=== PATIENT | male | born 1950 | race Caucasian/White ===

== ENCOUNTER 2020-09-02 09:50 | Outpatient (REF) | payer MEDICARE, SELFPAY ==
--- NOTE | 2020-09-02 | US_ITS ---
EXAMINATION: US RETROPERITONEAL LIMITED (RENAL ONLY) CLINICAL INFORMATION: Renal stones. COMPARISON: KUB 08/17/2020 and 12/16/2019. Renal ultrasound 06/09/2020 and 12/31/2019. CT abdomen and pelvis 06/30/2019. TECHNIQUE: Real-time imaging of the kidneys. FINDINGS: RIGHT KIDNEY: 10.4 x 5.5 x 4.5 cm (SAG x AP x TRV). The kidney is normal in size, contour, and echogenicity. Renal cortical thickness is normal. No renal calculi or hydronephrosis. At the interpolar aspect, 5.2 cm, 2.1 cm and 1.3 cm in maximal diameter simple cysts are seen. LEFT KIDNEY: 11.1 x 6.3 x 5.6 cm (SAG x AP x TRV). The kidney is normal in size, contour, and echogenicity. Renal cortical thickness is normal. No calculi or focal parenchymal lesions. No hydronephrosis. IMPRESSION: There are multiple simple right renal cysts noted. No renal calculus or hydronephrosis is seen bilaterally.
== END 2020-09-02 09:51 | disposition home or self-care (01) ==
LOC: HO.HMGCX 09:50
PROVIDERS: PCP Internal Medicine; Visit Provider Urology
DX: N20.0 Calculus of kidney (principal)
CPT/HCPCS: 76775

== ENCOUNTER 2020-09-15 17:11 | Outpatient (REF) | payer MEDICARE, SELFPAY | END 2020-09-15 17:12 | disposition home or self-care (01) | LOC: HO.LAB 17:11 | PROVIDERS: PCP Internal Medicine; Visit Provider Internal Medicine | DX: Z20.828 Contact with and (suspected) exposure to other viral communicable diseases (principal) | CPT/HCPCS: 87635 ==

== ENCOUNTER → 2020-09-29 11:12 | Outpatient (BNVA) | payer MEDICARE, SELFPAY | PROVIDERS: PCP Internal Medicine; Referring Provider Internal Medicine; Visit Provider Surgery | DX: Z71.83 Encounter for nonprocreative genetic counseling (principal); Z80.0 Family history of malignant neoplasm of digestive organs | CPT/HCPCS: 99212 ==

== ENCOUNTER 2020-11-28 10:00 | Outpatient (REF) | payer MEDICARE, SELFPAY ==
[2020-11-28 11:45] LABS: PSA,Total (Free>4and<10) 2.86 ng/mL (0.00-4.00)
== END 2020-11-28 10:01 | disposition home or self-care (01) ==
LOC: HO.LAB 10:00
PROVIDERS: PCP Internal Medicine; Visit Provider Urology
DX: N40.1 Benign prostatic hyperplasia with lower urinary tract symptoms (principal); Z12.5 Encounter for screening for malignant neoplasm of prostate
CPT/HCPCS: 84153

== ENCOUNTER → 2020-12-08 13:38 | Outpatient (BNVA) | payer MEDICARE, SELFPAY | PROVIDERS: PCP Internal Medicine; Referring Provider Internal Medicine; Visit Provider Urology | DX: Z13.89 Encounter for screening for other disorder (principal) | CPT/HCPCS: Q3014 ==

== ENCOUNTER 2021-01-02 09:52 | Outpatient (REF) | payer MEDICARE, SELFPAY | END 2021-01-02 09:53 | disposition home or self-care (01) | LOC: HO.LAB 09:52 | PROVIDERS: PCP Internal Medicine; Visit Provider Internal Medicine | DX: Z20.822 Contact with and (suspected) exposure to COVID-19 (principal) | CPT/HCPCS: 36415; C9803; U0003; U0005 ==

== ENCOUNTER 2021-08-22 08:04 | Outpatient (REF) | payer MEDICARE, SELFPAY ==
[2021-08-22 09:12] LABS: MANUAL DIFF FLAG NO
[2021-08-22 09:17] LABS: Basophils Absolute Auto 0.1 X10*3/uL (0.0-0.2); Basophils Percent Auto 1.1 % (0-2); Eosinophils Absolute Auto 0.2 X10*3/uL (0.0-0.4); Eosinophils Percent Auto 4.8 % (0-4); Hematocrit 46.9 % (42-52); Hemoglobin 15.5 g/dl (14.0-18.0); Imm Gran Abs Auto 0.01 X10*3/uL (0.00-0.03); Imm Gran Pct Auto 0.2 % (0.0-0.4); Lymphocytes Absolute Auto 1.3 X10*3/uL (1.2-4.9); Lymphocytes Percent Auto 28.9 % (20-40); Mean Corpuscular Hemoglobin 31.6 pg (27.0-33.0); Mean Corpuscular Volume 95.7 fL (80-98); Mean Platelet Volume 9.9 fL (9.4-12.4); Monocytes Absolute Auto 0.5 X10*3/uL (0.1-1.2); Monocytes Percent Auto 11.5 % (2-11); Neutrophils Absolute Auto 2.3 X10*3/uL (2.0-8.3); Neutrophils Percent Auto 53.5 % (45-73); Platelet Count 241 X10*3/uL (160-400); White Blood Count 4.4 X10*3/uL (4.8-10.8)
[2021-08-22 09:37] LABS: Alanine Aminotransferase 23 U/L (0-40); Albumin Level 4.2 g/dL (3.5-5.0); Alkaline Phosphatase 77 U/L (39-117); Anion Gap 12 (12-20); Aspartate Amino Transferase 18 U/L (5-37); Bilirubin Total 0.6 mg/dL (0.0-1.0); Blood Urea Nitrogen 18 mg/dL (9-16); Calcium 9.3 mg/dL (8.4-10.2); Carbon Dioxide 27 mmol/L (22-29); Chloride 106 mmol/L (96-108); Cholesterol 217 mg/dL; Estimated Glomerular Filt Rate > 60; Glucose Fasting 94 mg/dL (60-99); HDL Cholesterol 61 mg/dL; LDL Cholesterol Calculated 144 mg/dl; Potassium 4.8 mmol/L (3.3-5.1); Sodium 140 mmol/L (135-145); Total Protein 6.8 g/dL (6.5-8.0); Triglycerides 60 mg/dL
[2021-08-22 09:58] LABS: Prostate Specific Antigen Scr 2.35 ng/mL (<0.05-4.0); Thyroid Stimulating Hormone 2.88 uIU/mL (0.32-4.0)
== END 2021-08-22 08:05 | disposition home or self-care (01) ==
LOC: HO.LAB 08:04
PROVIDERS: PCP Internal Medicine; Visit Provider Internal Medicine
DX: Z00.00 Encounter for general adult medical examination without abnormal findings (principal); Z12.5 Encounter for screening for malignant neoplasm of prostate; R35.1 Nocturia; E11.9 Type 2 diabetes mellitus without complications; E03.9 Hypothyroidism, unspecified
CPT/HCPCS: 36415; 80053; 80061; 84153; 84443; 85025

== ENCOUNTER 2021-11-21 09:54 | Outpatient (REF) | payer MEDICARE, SELFPAY ==
--- NOTE | ~2021-11-21 | US_ITS ---
EXAMINATION: US RETROPERITONEAL LIMITED (RENAL ONLY) CLINICAL INFORMATION: Calculus of kidney. COMPARISON: Renal ultrasound 09/02/2020 and 06/09/2020. X-ray abdomen KUB 08/17/2020 and 12/16/2019. CT abdomen and pelvis 06/30/2019. TECHNIQUE: Real-time imaging of the kidneys. FINDINGS: RIGHT KIDNEY: 10.9 x 6.5 x 6.1 cm (SAG x AP x TRV). The kidney is normal in size, contour, and echogenicity. Renal cortical thickness is decreased. There are 3 right renal cysts. There is a 2.2 x 2.1 x 1.9 cm minimally complex cyst in the lower pole with single thin septation. There are 2 simple cysts in the midpole measuring 1.1 x 1.2 x 1.2 cm and 4.3 x 4 x 4.3 cm. These do not appear appreciably changed. No renal calculi or hydronephrosis. LEFT KIDNEY: 11.3 x 6.4 x 5.1 cm (SAG x AP x TRV). The kidney is normal in size, contour, and echogenicity. Renal cortical thickness is decreased. There are several small echogenic foci seen. None demonstrate acoustic shadowing or twinkle artifact to suggest a stone. No focal parenchymal lesions. No hydronephrosis. US/US renal BI IMPRESSION: Stable right renal cysts. No stone seen.
[2021-11-21 12:00] LABS: Alanine Aminotransferase 22 U/L (0-40); Albumin Level 4.2 g/dL (3.5-5.0); Alkaline Phosphatase 79 U/L (39-117); Anion Gap 12 (12-20); Aspartate Amino Transferase 20 U/L (5-37); Bilirubin Total 0.8 mg/dL (0.0-1.0); Blood Urea Nitrogen 19 mg/dL (9-16); Calcium 9.5 mg/dL (8.4-10.2); Carbon Dioxide 26 mmol/L (22-29); Chloride 108 mmol/L (96-108); Cholesterol 218 mg/dL; Estimated Glomerular Filt Rate > 60; Glucose Fasting 88 mg/dL (60-99); HDL Cholesterol 60 mg/dL; LDL Cholesterol Calculated 145 mg/dl; Potassium 4.6 mmol/L (3.3-5.1); Sodium 141 mmol/L (135-145); Triglycerides 65 mg/dL
[2021-11-21 12:22] LABS: Prostate Specific Antigen 2.78 ng/mL (<0.05-4.0)
== END 2021-11-21 09:55 | disposition home or self-care (01) ==
LOC: HO.HMGCX 09:54
PROVIDERS: PCP Internal Medicine; Visit Provider Urology
DX: Z12.5 Encounter for screening for malignant neoplasm of prostate (principal); Z13.1 Encounter for screening for diabetes mellitus; Z13.220 Encounter for screening for lipoid disorders; N20.0 Calculus of kidney; N40.0 Benign prostatic hyperplasia without lower urinary tract symptoms
CPT/HCPCS: 36415; 76775; 80053; 80061; 84153

== ENCOUNTER → 2021-12-27 08:24 | Outpatient (BNVA) | payer MEDICARE, SELFPAY | PROVIDERS: PCP Internal Medicine; Visit Provider Urology | DX: N20.0 Calculus of kidney (principal); N40.0 Benign prostatic hyperplasia without lower urinary tract symptoms | CPT/HCPCS: Q3014 ==

== ENCOUNTER 2022-05-31 05:22 | Emergency (ER) | payer MEDICARE, SELFPAY ==
--- NOTE | ~2022-05-31 | XR_ITS ---
EXAMINATION: XR CHEST CLINICAL INFORMATION: Chest pain COMPARISON: 05/17/2009 TECHNIQUE: Frontal view of the chest was obtained. FINDINGS: The lungs are well expanded. There is no focal consolidation, edema, or effusion. No pneumothorax. The cardiomediastinal silhouette is within normal limits. No acute osseous abnormality. XR/XR chest 1V IMPRESSION: Clear lungs.
--- NOTE | 2022-05-31 05:25 | ECG_ITS ---
Test Reason : CHEST PAIN Blood Pressure : / mmHG Vent. Rate : 056 BPM Atrial Rate : 056 BPM P-R Int : 184 ms QRS Dur : 102 ms QT Int : 446 ms P-R-T Axes : 029 -01 081 degrees QTc Int : 430 ms Sinus bradycardia Inferior infarct , possibly acute ACUTE SC / STEMI Consider right ventricular involvement in acute inferior infarct Abnormal ECG When compared with ECG of 29-NOV-2014 15:07, Inferior infarct is now Present ST elevation now present in Inferior leads ST now depressed in Lateral leads Referred By: Generic ED Physician Electronically Signed By:NAYE DE LUNA
--- NOTE | 2022-05-31 05:33 | ED_ITS ---
HPI - Chest Pain General Chief Complaint: Chest Pain Stated Complaint: Chest pain Time Seen by Provider: 05/31/22 05:33 Source: patient Mode of arrival: ambulatory Limitations: no limitations History of Present Illness HPI narrative: patient with history of arthritis and good no known coronary artery disease came here with left arm pain which started yesterday evening and since middle of the night noticed left-sided chest pain feels like pressure no nausea no vomiting no diaphoresis no syncope no palpitation patient never had similar pain in the past. On arrival patient blood pressure was 162/90 pulse rate 62 beats per minute rate 16 saturating 97% at room air Related Data Previous Rx's Medication Instructions Recorded omeprazole 20 mg capsule,delayed 20 mg PO DAILY #90 caps 04/03/22 release naproxen 500 mg tablet 500 mg PO BID #90 tabs 05/15/22 Allergies Allergy/AdvReac Type Severity Reaction Status Date / Time shellfish derived AdvReac Intermediate VOMITING Verified 05/31/22 05:26 Review of Systems Review of Systems: Yes all other systems are reviewed and are negative PMFSH Past Medical History Medical History Benign prostatic hyperplasia with lower urinary tract symptoms Family history of pancreatic cancer Genetic testing History of colon cancer Kidney stone Other obstructive and reflux uropathy Rectal bleeding Renal cyst Screening for diabetes mellitus Screening for hyperlipidemia Surgical History History of colon resection (~12/14/14) History of colonoscopy (~10/18/14) Family History Family History Father History of heart disease Mother History of colon cancer Brother History of liver cancer History of pancreatic cancer Sister History of lung cancer Daughter History of breast cancer Social History Social History Housing: House Alcohol intake: current Alcohol intake frequency: a few times a month Patient Tobacco Use Status: Never used Tobacco Use of substances other than those prescribed or required for medical reasons: No Advance Directives: No service: No Current occupational status: retired Physical Exam Vital Signs: Vital Signs: Last Vital Signs Pulse 53 05/31/22 06:07 Resp 14 05/31/22 06:06 BP 125/75 05/31/22 06:07 Pulse Ox 95 05/31/22 06:06 O2 Del Method 05/31/22 06:06 BMI result Body Mass Index 27.6 Appearance: Alert. Oriented X3. No acute distress. Eyes: PERRLA, No Nystagmus ENT: Pharynx normal. Oral Mucosa moist Neck: Normal inspection. Neck supple. CVS: Normal heart rate and rhythm. Pulses normal. no murmur/ rub or gallop Respiratory: No respiratory distress. Equal air entry bilateral, no wheezing/rales/rhonchi Abdomen: Soft and nontender. Bowel sounds are present, no mass palpable, no CVA tenderness Skin: Skin warm and dry. Normal skin color. Normal skin turgor. Extremities: No lower extremity edema. No calf tenderness Neuro: Oriented X 3. No motor deficit. No sensory deficit.No cerebellar signs , cranial nerves II-XII intact Course Reevaluation(s) Reevaluation #1: patient with inferior wall AK started on heparin bolus, Brilinta, aspirin and nitroglycerin was givencase discussed with sound installation worker Dr. Paris at [facility] accepted the patient for transfer to laboratory asst Time: 05:38 Reevaluation #2: awaiting for the ambulance patient received the above medications patient's chest pain gone at this time after 1 nitro s/l Time: 05:50 MDM - Chest Pain MDM Narrative Medical decision making narrative: 06:10 patient with inferior wall STEMI transfer to [facility] at this time chest pain-free Lab Data Attestation: I reviewed the patient's lab results. Result diagrams: 05/31/22 05:35 05/31/22 05:35 Labs: Lab Results 05/31/22 05/31/22 05/31/22 Range/Units 05:35 05:35 05:35 WBC 6.5 (4.8-10.8) X10*3/uL RBC 5.09 (4.60-5.80) X10*6/uL Hgb 15.9 (14.0-18.0) g/dl Hct 47.4 (42.0-52.0) % MCV 93.1 (80.0-98.0) fL MCH 31.2 (27.0-33.0) pg MCHC 33.5 (31.0-36.0) g/dl RDW 12.8 (11.0-16.0) % Plt Count 237 (160-400) X10*3/uL MPV 9.3 L (9.4-12.4) fL Immature Gran % (Auto) 0.2 (0.0-0.4) % Neut % (Auto) 38.7 L (45-73) % Lymph % (Auto) 40.0 (20-40) % [place] % (Auto) 13.3 H (2-11) % Eos % (Auto) 7.0 H (0-4) % Baso % (Auto) 0.8 (0-2) % Lymph # (Auto) 2.6 (1.2-4.9) X10*3/uL [place] # (Auto) 0.9 (0.1-1.2) X10*3/uL Eos # (Auto) 0.5 H (0.0-0.4) X10*3/uL Baso # (Auto) 0.1 (0.0-0.2) X10*3/uL Abs Immat Gran (auto) 0.01 (0.00-0.03) X10*3/uL Absolute Neuts (auto) 2.5 (2.0-8.3) x10*3/uL Absolute Nucleated RBC 0.000 (0.0-0.012) X10*3/uL Nucleated RBC % (auto) 0.0 (0.0-0.2) /100WBC PT 10.8 (10.0-13.1) SEC INR 0.9 (0.9-1.1) APTT 33.9 (24.1-38.0) SEC Sodium 141 (135-145) mmol/L Potassium 3.9 (3.3-5.1) mmol/L Chloride 107 (96-108) mmol/L Carbon Dioxide 23 (22-29) mmol/L Anion Gap 15 (12-20) BUN 21 H (9-16) mg/dL Creatinine 1.04 (0.5-1.4) mg/dL Estim Creat Clear Calc 68.3 Estimated GFR > 60 Random Glucose 106 (60-115) mg/dL Calcium 9.2 (8.4-10.2) mg/dL Magnesium 1.9 (1.6-2.6) mg/dL COVID-19 (NBA) (Negative) COVID-19 Clin Com 05/31/22 Range/Units 05:35 WBC (4.8-10.8) X10*3/uL RBC (4.60-5.80) X10*6/uL Hgb (14.0-18.0) g/dl Hct (42.0-52.0) % MCV (80.0-98.0) fL MCH (27.0-33.0) pg MCHC (31.0-36.0) g/dl RDW (11.0-16.0) % Plt Count (160-400) X10*3/uL MPV (9.4-12.4) fL Immature Gran % (Auto) (0.0-0.4) % Neut % (Auto) (45-73) % Lymph % (Auto) (20-40) % [place] % (Auto) (2-11) % Eos % (Auto) (0-4) % Baso % (Auto) (0-2) % Lymph # (Auto) (1.2-4.9) X10*3/uL [place] # (Auto) (0.1-1.2) X10*3/uL Eos # (Auto) (0.0-0.4) X10*3/uL Baso # (Auto) (0.0-0.2) X10*3/uL Abs Immat Gran (auto) (0.00-0.03) X10*3/uL Absolute Neuts (auto) (2.0-8.3) x10*3/uL Absolute Nucleated RBC (0.0-0.012) X10*3/uL Nucleated RBC % (auto) (0.0-0.2) /100WBC PT (10.0-13.1) SEC INR (0.9-1.1) APTT (24.1-38.0) SEC Sodium (135-145) mmol/L Potassium (3.3-5.1) mmol/L Chloride (96-108) mmol/L Carbon Dioxide (22-29) mmol/L Anion Gap (12-20) BUN (9-16) mg/dL Creatinine (0.5-1.4) mg/dL Estim Creat Clear Calc Estimated GFR Random Glucose (60-115) mg/dL Calcium (8.4-10.2) mg/dL Magnesium (1.6-2.6) mg/dL COVID-19 (NBA) Negative (Negative) COVID-19 Clin Com See Note ECG Data ECG #1: Attestation: I personally reviewed and interpreted this ECG as follows: Interpretation: sinus bradycardia with heart rate [address] elevation in 2, 3 AVF impression acute STEMI inferior wall Discharge Plan Discharge Clinical Impression: ST elevation myocardial infarction (STEMI) Patient Disposition: Xfer [facility] Hospital Transfer Details: [facility] cardiac catheterization Dr. PARIS Prescriptions: No Action omeprazole 20 mg capsule,delayed release(DR/EC) 20 mg PO DAILY Qty: 90 0RF naproxen 500 mg tablet 500 mg PO BID Qty: 90 8RF
[2022-05-31 05:36] VITALS: BP 162/90; PULSE 62; RESP 16; O2SAT 97; BMI 27.6
[2022-05-31 05:42] LABS: MANUAL DIFF FLAG NO
[2022-05-31] MEDS: Heparin Sodium,Porcine 5,000 UNIT/ML VIAL 5000 UNIT IVPUSH (05:43)
[2022-05-31] MEDS: Aspirin 81 MG TAB.CHEW 324 MG PO (05:43)
[2022-05-31] MEDS: Ticagrelor 90 MG TABLET 180 MG PO (05:43)
[2022-05-31] MEDS: Nitroglycerin 0.4 MG TAB.SUBL SUBLINGUAL ×2 (05:44→06:07)
[2022-05-31 05:46] LABS: Basophils Absolute Auto 0.1 X10*3/uL (0.0-0.2); Basophils Percent Auto 0.8 % (0-2); Eosinophils Absolute Auto 0.5 X10*3/uL (0.0-0.4); Hematocrit 47.4 % (42.0-52.0); Hemoglobin 15.9 g/dl (14.0-18.0); Imm Gran Abs Auto 0.01 X10*3/uL (0.00-0.03); Imm Gran Pct Auto 0.2 % (0.0-0.4); Lymphocytes Absolute Auto 2.6 X10*3/uL (1.2-4.9); Mean Corpuscular HGB Conc 33.5 g/dl (31.0-36.0); Mean Corpuscular Hemoglobin 31.2 pg (27.0-33.0); Mean Corpuscular Volume 93.1 fL (80.0-98.0); Mean Platelet Volume 9.3 fL (9.4-12.4); Monocytes Absolute Auto 0.9 X10*3/uL (0.1-1.2); Monocytes Percent Auto 13.3 % (2-11); Neutrophils Absolute Auto 2.5 x10*3/uL (2.0-8.3); Neutrophils Percent Auto 38.7 % (45-73); Platelet Count 237 X10*3/uL (160-400); Red Blood Count 5.09 X10*6/uL (4.60-5.80); Red Cell Distribution Width 12.8 % (11.0-16.0); White Blood Count 6.5 X10*3/uL (4.8-10.8)
[2022-05-31 05:50] LABS: INTERNATIONAL NORM RATIO 0.9 (0.9-1.1); Prothrombin Time 10.8 SEC (10.0-13.1)
[2022-05-31 05:51] VITALS: BP 145/87; PULSE 62; RESP 14; O2SAT 97
--- NOTE | 2022-05-31 05:51 | PC.NURSE ---
Pt reports being pain free after 1 SL Nitro.
[2022-05-31 05:53] LABS: Partial Thromboplastin Time 33.9 SEC (24.1-38.0)
[2022-05-31 06:00] LABS: COVID-19 Test Negative (Negative)
--- NOTE | 2022-05-31 06:01 | PC.NURSE ---
this RN attempt to call report to supervisor cytogenetic laboratory at [facility] with no response, this RN will attempt report again.
[2022-05-31 06:06] VITALS: BP 125/75; PULSE 56; RESP 14; O2SAT 95
[2022-05-31 06:07] VITALS: BP 125/75; PULSE 53
[2022-05-31 06:07] LABS: Anion Gap 15 (12-20); Blood Urea Nitrogen 21 mg/dL (9-16); Calcium 9.2 mg/dL (8.4-10.2); Carbon Dioxide 23 mmol/L (22-29); Chloride 107 mmol/L (96-108); Creatinine Clr Calc Pharmacy 68.3; Estimated Glomerular Filt Rate > 60; Glucose Random 106 mg/dL (60-115); Magnesium 1.9 mg/dL (1.6-2.6); Potassium 3.9 mmol/L (3.3-5.1); Sodium 141 mmol/L (135-145)
--- NOTE | 2022-05-31 06:07 | PC.NURSE ---
CALL OUT TO [facility] FOR INCURABLES STEMI STAT LINE @[phone]
--- NOTE | 2022-05-31 06:08 | PC.NURSE ---
CALL OUT TO [facility] @[phone] REGARDING STAT STEMI TRANSFER TO [facility]
[2022-05-31 06:13] VITALS: BP 133/73; PULSE 54; RESP 16; O2SAT 96
[2022-05-31 06:15] LABS: Troponin-I High Sensitivity 615.4 ng/L (<3.5-35.0)
--- NOTE | 2022-05-31 06:16 | ED.CHESTPAIN ---
HPI - Chest Pain General Chief Complaint: Chest Pain Stated Complaint: Chest pain Time Seen by Provider: 05/31/22 05:33 Source: patient Mode of arrival: ambulatory Limitations: no limitations Related Data Previous Rx's Medication Instructions Recorded omeprazole 20 mg capsule,delayed 20 mg PO DAILY #90 caps 04/03/22 release naproxen 500 mg tablet 500 mg PO BID #90 tabs 05/15/22 Allergies Allergy/AdvReac Type Severity Reaction Status Date / Time shellfish derived AdvReac Intermediate VOMITING Verified 05/31/22 05:26 [facility] Past Medical History Medical History Benign prostatic hyperplasia with lower urinary tract symptoms Family history of pancreatic cancer Genetic testing History of colon cancer Kidney stone Other obstructive and reflux uropathy Rectal bleeding Renal cyst Screening for diabetes mellitus Screening for hyperlipidemia Surgical History History of colon resection (~12/14/14) History of colonoscopy (~10/18/14) Family History Family History Father History of heart disease Mother History of colon cancer Brother History of liver cancer History of pancreatic cancer Sister History of lung cancer Daughter History of breast cancer Social History Social History Housing: House Alcohol intake: current Alcohol intake frequency: a few times a month Patient Tobacco Use Status: Never used Tobacco Use of substances other than those prescribed or required for medical reasons: No Advance Directives: No service: No Current occupational status: retired Physical Exam Vital Signs: Vital Signs: Last Vital Signs Pulse 54 05/31/22 06:13 Resp 16 05/31/22 06:13 BP 133/73 05/31/22 06:13 Pulse Ox 96 05/31/22 06:13 O2 Del Method 05/31/22 06:13 BMI result Body Mass Index 27.6 MDM - Chest Pain Lab Data Result diagrams: 05/31/22 05:35 05/31/22 05:35 Labs: Lab Results 05/31/22 05/31/22 05/31/22 Range/Units 05:35 05:35 05:35 WBC 6.5 (4.8-10.8) X10*3/uL RBC 5.09 (4.60-5.80) X10*6/uL Hgb 15.9 (14.0-18.0) g/dl Hct 47.4 (42.0-52.0) % MCV 93.1 (80.0-98.0) fL MCH 31.2 (27.0-33.0) pg MCHC 33.5 (31.0-36.0) g/dl RDW 12.8 (11.0-16.0) % Plt Count 237 (160-400) X10*3/uL MPV 9.3 L (9.4-12.4) fL Immature Gran % (Auto) 0.2 (0.0-0.4) % Neut % (Auto) 38.7 L (45-73) % Lymph % (Auto) 40.0 (20-40) % [place] % (Auto) 13.3 H (2-11) % Eos % (Auto) 7.0 H (0-4) % Baso % (Auto) 0.8 (0-2) % Lymph # (Auto) 2.6 (1.2-4.9) X10*3/uL [place] # (Auto) 0.9 (0.1-1.2) X10*3/uL Eos # (Auto) 0.5 H (0.0-0.4) X10*3/uL Baso # (Auto) 0.1 (0.0-0.2) X10*3/uL Abs Immat Gran (auto) 0.01 (0.00-0.03) X10*3/uL Absolute Neuts (auto) 2.5 (2.0-8.3) x10*3/uL Absolute Nucleated RBC 0.000 (0.0-0.012) X10*3/uL Nucleated RBC % (auto) 0.0 (0.0-0.2) /100WBC PT (10.0-13.1) SEC INR (0.9-1.1) APTT (24.1-38.0) SEC Sodium 141 (135-145) mmol/L Potassium 3.9 (3.3-5.1) mmol/L Chloride 107 (96-108) mmol/L Carbon Dioxide 23 (22-29) mmol/L Anion Gap 15 (12-20) BUN 21 H (9-16) mg/dL Creatinine 1.04 (0.5-1.4) mg/dL Estim Creat Clear Calc 68.3 Estimated GFR > 60 Random Glucose 106 (60-115) mg/dL Calcium 9.2 (8.4-10.2) mg/dL Magnesium 1.9 (1.6-2.6) mg/dL Troponin I High Sens 615.4 H* (<3.5-35.0) ng/L COVID-19 (NBA) (Negative) COVID-19 Clin Com 05/31/22 05/31/22 Range/Units 05:35 05:35 WBC (4.8-10.8) X10*3/uL RBC (4.60-5.80) X10*6/uL Hgb (14.0-18.0) g/dl Hct (42.0-52.0) % MCV (80.0-98.0) fL MCH (27.0-33.0) pg MCHC (31.0-36.0) g/dl RDW (11.0-16.0) % Plt Count (160-400) X10*3/uL MPV (9.4-12.4) fL Immature Gran % (Auto) (0.0-0.4) % Neut % (Auto) (45-73) % Lymph % (Auto) (20-40) % [place] % (Auto) (2-11) % Eos % (Auto) (0-4) % Baso % (Auto) (0-2) % Lymph # (Auto) (1.2-4.9) X10*3/uL [place] # (Auto) (0.1-1.2) X10*3/uL Eos # (Auto) (0.0-0.4) X10*3/uL Baso # (Auto) (0.0-0.2) X10*3/uL Abs Immat Gran (auto) (0.00-0.03) X10*3/uL Absolute Neuts (auto) (2.0-8.3) x10*3/uL Absolute Nucleated RBC (0.0-0.012) X10*3/uL Nucleated RBC % (auto) (0.0-0.2) /100WBC PT 10.8 (10.0-13.1) SEC INR 0.9 (0.9-1.1) APTT 33.9 (24.1-38.0) SEC Sodium (135-145) mmol/L Potassium (3.3-5.1) mmol/L Chloride (96-108) mmol/L Carbon Dioxide (22-29) mmol/L Anion Gap (12-20) BUN (9-16) mg/dL Creatinine (0.5-1.4) mg/dL Estim Creat Clear Calc Estimated GFR Random Glucose (60-115) mg/dL Calcium (8.4-10.2) mg/dL Magnesium (1.6-2.6) mg/dL Troponin I High Sens (<3.5-35.0) ng/L COVID-19 (NBA) Negative (Negative) COVID-19 Clin Com See Note Discharge Plan Discharge Clinical Impression: ST elevation myocardial infarction (STEMI) [facility] Hospital Transfer Details: [facility] cardiac catheterization Dr. PARIS Prescriptions: No Action omeprazole 20 mg capsule,delayed release(/EC) 20 mg PO DAILY Qty: 90 0RF naproxen 500 mg tablet 500 mg PO BID Qty: 90 8RF Discharge Date/Time: 05/31/22 06:22
--- NOTE | 2022-05-31 06:18 | PC.NURSE ---
report called to GIULIA Baker in [facility] cardiac cath
--- NOTE | 2022-05-31 06:22 | PC.NURSE ---
EMS here to transfer pt to [facility], pt reports pain 04/10
== END 2022-05-31 06:22 | disposition short-term general hospital (02) ==
PROVIDERS: Emergency Provider Internal Medicine; PCP Internal Medicine
DX: I21.19 ST elevation (STEMI) myocardial infarction involving other coronary artery of inferior wall (principal); Z20.822 Contact with and (suspected) exposure to COVID-19; Z80.0 Family history of malignant neoplasm of digestive organs; Z85.038 Personal history of other malignant neoplasm of large intestine
CPT/HCPCS: 36415; 71045; 80048; 83735; 84484; 85025; 85610; 85730; 87635; 93005; 96374; 99285; 99291

== ENCOUNTER → 2022-06-27 09:48 | Outpatient (BNVA) | payer MEDICARE, SELFPAY | PROVIDERS: PCP Internal Medicine; Visit Provider Internal Medicine Cardiovascular Disease | DX: I25.10 Atherosclerotic heart disease of native coronary artery without angina pectoris (principal); I24.1 Dressler's syndrome; Z95.2 Presence of prosthetic heart valve | CPT/HCPCS: 99202 ==

== ENCOUNTER → 2022-07-02 10:01 | Outpatient (REF) | payer MEDICARE, SELFPAY ==
--- NOTE | ~2022-07-02 | NM_ITS ---
Lexiscan Myocardial perfusion study Indication: Coronary disease, assess for ischemia Technique: The patient was brought in for a Lexiscan perfusion study on 07/02/2022 and was injected 0.4 mg of Lexiscan intravenously. Within a minute of this injection 30 mCi of sestamibi was given intravenously. Images were obtained using the SPECT gamma camera interlaced with the gating device. Images were obtained in supine position. Resting perfusion study was performed on 07/04/2022. Patient was administered 30 mCi of sestamibi intravenously at rest. Images were then obtained in supine position. Total DLP 84mGy-cm. Images were processed with the software and compared side to side in short axis, horizontal long axis and vertical long axis views. Findings: Raw acquisition reviewed. The stress perfusion study showed diminished tracer uptake along the inferior wall. Most prominent in the basal portion. There is also some adjacent GI tracer uptake. CT attenuation corrected images have a lot of adjacent bowel uptake and hence difficult to assess inferior wall. The gated study shows normal LV systolic function with calculated LVEF of 59%. LV cavity is normal in size. The gated study shows diminished contractility, probably akinesis; in the basal to mid inferior wall. Resting study shows diminished tracer uptake in the basal part of inferior wall. Gating at rest with ejection fraction at 51%. Diminished contractility in the basal inferior/inferolateral wall. The findings are consistent with basal inferior/inferolateral fixed defect slight reversible. Some reversibility. Slight extension into the midportion of the inferior wall. NM/NM edwin perf SPECT rest & str Impression: 1. Myocardial perfusion imaging study shows transmural infarct in the basal inferior wall with slight extension to the midportion. Sirena-infarct ischemia. 2. Gated LVEF is 59% during stress and 51% during rest. 3. Transient ischemic dilatation not present. EKG component of the test reported separately.
--- NOTE | 2022-07-02 10:06 | CA_ITS ---
Acquisition Time: 2022-07-02 10:52:39 Total Exercise Time: 00:02:00 Test Indications: cp, cad Medications: see chart Protocol: LEXISCAN Max HR: 125 BPM 84% of Pred: 148 BPM Max BP: 140/084 mmHG Max Work Load: 1.6 METS Pharmacological stress test with Lexiscan injection, while walking slow on treadmill without anginal symptoms, with isolated PVCs, short runs of narrow complex tachycardia, with normotensive response to injection, with nondiagnostic EKG for ischemia. In recovery he had about 2 min run of irregular narrow complex tachycardia, asymptomatic which converted back to normal sinus rhythm. In recovery he was treated with Aminophylline 75mg IVP to reverse Lexiscan. Nuclear images pending. Test reviewed with Dr Aguilar. EKGs confirmed to be PAF, post Lexiscan. Will order a 30 day SARBJIT to [facility] for recurrent episodes of PAF. Referred By: Kenan Aguilar Overread By: MARCY VENTURA
== END ==
LOC: HO.CARD 10:01
PROVIDERS: PCP Internal Medicine; Visit Provider Internal Medicine Cardiovascular Disease
DX: I25.10 Atherosclerotic heart disease of native coronary artery without angina pectoris (principal)
CPT/HCPCS: 78452; 93017; A9500; J0280; J2785

== ENCOUNTER → 2022-07-04 12:23 | Outpatient (REF) | payer MEDICARE, SELFPAY ==
--- NOTE | 2022-07-04 12:27 | HM_ITS ---
REQUESTING PROVIDER: Danielle Steven. REASON FOR TEST: Paroxysmal atrial fibrillation. INTERPRETATION: The patient hooked up for cardiac event monitor from 07/04/2022 to 08/03/2022 for a total period of 30 days. FINDINGS: Baseline rhythm was normal sinus rhythm predominantly. Very brief episodes of atrial fibrillation noted with heart rate up to 135 beats per minute. Rare isolated PVCs noted. The patient did not report any symptoms. CONCLUSION: 1. Holter report of unknown, predominantly normal sinus rhythm. 2. Brief episodes of paroxysmal atrial fibrillation with heart rate of 135 beats per minute. 3. No outpatient reported events. Kenan Aguilar MD NRS/MODL / [id number]
== END ==
LOC: HO.CARD 12:23
PROVIDERS: PCP Internal Medicine; Visit Provider Nurse Practitioner Family
DX: I25.10 Atherosclerotic heart disease of native coronary artery without angina pectoris (principal); I48.0 Paroxysmal atrial fibrillation
CPT/HCPCS: 93270

== ENCOUNTER 2022-07-25 09:49 | Outpatient (REF) | payer MEDICARE, SELFPAY ==
[2022-07-25 11:51] LABS: Cholesterol 120 mg/dL; HDL Cholesterol 40 mg/dL; LDL Cholesterol Calculated 67 mg/dl; Triglycerides 65 mg/dL
== END 2022-07-25 09:50 | disposition home or self-care (01) ==
LOC: HO.LAB 09:49
PROVIDERS: PCP Internal Medicine; Visit Provider Internal Medicine Cardiovascular Disease
DX: I25.10 Atherosclerotic heart disease of native coronary artery without angina pectoris (principal)
CPT/HCPCS: 36415; 80061

== ENCOUNTER → 2022-08-08 13:53 | Outpatient (BNVA) | payer MEDICARE, SELFPAY ==
[2022-08-08 14:27] VITALS: BP 132/64; BP 132/68; BP 138/72; BMI 26.4
== END ==
PROVIDERS: PCP Internal Medicine; Referring Provider Internal Medicine; Visit Provider Internal Medicine Cardiovascular Disease
DX: I25.10 Atherosclerotic heart disease of native coronary artery without angina pectoris (principal); I24.1 Dressler's syndrome; I48.0 Paroxysmal atrial fibrillation
CPT/HCPCS: 99212

== ENCOUNTER → 2022-10-23 08:29 | Outpatient (REF) | payer MEDICARE, SELFPAY ==
[2022-08-08 14:27] VITALS: BP 132/64; BP 132/68; BP 138/72; BMI 26.4
[2022-09-27 07:10] VITALS: BP 108/62; BMI 26.1
--- NOTE | 2022-10-23 08:39 | CA_ITS ---
Transthoracic Echocardiogram Patient (Last, First, Middle): Abel Gzuman C Gender: Male Date of : 1950 Age: 71 Procedure Date: 10/23/2022 Procedure Type: Transthoracic Echocardiogram Location: OP Height: 180.34 cm Weight: 89.81 kg BSA: 2.10 m2 Heart Rate: 72 bpm BP: 120 / 75 mmHg Rn Hospital: [facility] Referring MD: Kenan Aguilar MD Symptoms: I42.9 - Cardiomyopathy, unspecified Study Quality: Adequate ECG Rhythm: Sinus Conclusions: - The left ventricular systolic function is mildly decreased. The calculated ejection fraction is 49% by biplane method. - The basal inferior, basal inferoseptal, and basal inferolateral segments are akinetic. - There is no evidence of pericardial effusion. Findings Left Ventricle Normal left ventricular cavity size. The left ventricular systolic function is mildly decreased. The calculated ejection fraction is 49% by biplane method. There is evidence of regional wall motion abnormalities. Wall Motion Rest Echo Findings The basal inferior, basal inferoseptal, and basal inferolateral segments are akinetic. Pericardium/Pleural Prominent epicardial adipose tissue noted. There is no evidence of pericardial effusion. Prior Study Comparison No prior study available for comparison. Measurements 2D Linear Measurements IVSd: 1.01 0.6-0.9/0.6-1.0 cm LVIDd: 5.55 3.9-5.3/4.2-5.9 cm LVIDd Index: 2.64 2.4-3.2/2.2-3.1 cm/m2 LVIDs: 4.38 2.0-3.6 cm LVPWd: 0.80 0.7-1.1 cm LV Mass: 237.35 67-162/88-224 g LV Mass Index: 113.02 43-95/49-115 g/m2 LVOT Diam: 2.30 3.0+(-)1.3 cm 2D Systolic Function EF 4C: 49.30 >55% EF 2C: 47.00 >55% EF BiP: 49.00 >55% LVOT LVOT Pk Mohamud: 0.68 LVOT Mn Mohamud: 0.51 LVOT VTI: 0.17 LVOT Pk Grad: 2.00 LVOT Mn Grad: 1.00 LVOT Diam: 2.30 LVOT Area: 4.15 Updated in Other Vendor System with Status of Final Chetan Romero MD electronically signed on 10/25/2022 1:00:55 PM with status of Final
[2022-10-23 10:25] LABS: Cholesterol 155 mg/dL; HDL Cholesterol 55 mg/dL; LDL Cholesterol Calculated 91 mg/dl; Triglycerides 47 mg/dL
[2022-10-23 10:29] LABS: B Type Natriuretic Peptide 76 pg/mL (<100)
[2022-10-30 10:55] LABS: CRP High Sensitivity 2.1 mg/L
== END ==
LOC: HO.CARD 08:29
PROVIDERS: PCP Internal Medicine; Visit Provider Internal Medicine Cardiovascular Disease
DX: I24.1 Dressler's syndrome (principal); I42.9 Cardiomyopathy, unspecified; I25.10 Atherosclerotic heart disease of native coronary artery without angina pectoris; E78.5 Hyperlipidemia, unspecified
CPT/HCPCS: 36415; 80061; 83880; 86141; 93308

== ENCOUNTER 2022-11-07 09:55 | Outpatient (REF) | payer MEDICARE, SELFPAY ==
[2022-08-08 14:27] VITALS: BP 132/68; BP 138/72
[2022-10-22 12:46] VITALS: BP 122/68; BMI 26.5
[2022-11-07 11:34] LABS: Prostate Specific Antigen 2.05 ng/mL (<0.05-4.0)
== END 2022-11-07 09:56 | disposition home or self-care (01) ==
LOC: HO.LAB 09:55
PROVIDERS: PCP Internal Medicine; Visit Provider Urology
DX: Z12.5 Encounter for screening for malignant neoplasm of prostate (principal); N13.8 Other obstructive and reflux uropathy; N28.1 Cyst of kidney, acquired; N40.1 Benign prostatic hyperplasia with lower urinary tract symptoms
CPT/HCPCS: 36415; 84153

== ENCOUNTER → 2022-11-12 09:13 | Outpatient (BNVA) | payer MEDICARE, SELFPAY ==
[2022-08-08 14:27] VITALS: BP 132/68; BP 138/72
[2022-10-22 12:46] VITALS: BP 122/68; BMI 26.5
== END ==
PROVIDERS: PCP Internal Medicine; Referring Provider Internal Medicine; Visit Provider Internal Medicine Cardiovascular Disease
DX: I25.10 Atherosclerotic heart disease of native coronary artery without angina pectoris (principal); I24.1 Dressler's syndrome; I48.0 Paroxysmal atrial fibrillation; I25.2 Old myocardial infarction; Z79.02 Long term (current) use of antithrombotics/antiplatelets; Z79.899 Other long term (current) drug therapy
CPT/HCPCS: 99212

== ENCOUNTER 2022-11-13 09:55 | Outpatient (REF) | payer MEDICARE, SELFPAY ==
[2022-08-08 14:27] VITALS: BP 132/68; BP 138/72
[2022-10-22 12:46] VITALS: BP 122/68; BMI 26.5
[2022-11-13 11:01] LABS: Alanine Aminotransferase 27 U/L (0-40); Albumin Level 4.3 g/dL (3.5-5.0); Alkaline Phosphatase 80 U/L (39-117); Anion Gap 12 (12-20); Aspartate Amino Transferase 22 U/L (5-37); Bilirubin Total 0.6 mg/dL (0.0-1.0); Blood Urea Nitrogen 17 mg/dL (9-16); Calcium 9.4 mg/dL (8.4-10.2); Carbon Dioxide 27 mmol/L (22-29); Chloride 106 mmol/L (96-108); Estimated Glomerular Filt Rate > 60; Glucose Fasting 95 mg/dL (60-99); Potassium 4.7 mmol/L (3.3-5.1); Sodium 140 mmol/L (135-145); Total Protein 6.8 g/dL (6.5-8.0)
== END 2022-11-13 09:56 | disposition home or self-care (01) ==
LOC: HO.LAB 09:55
PROVIDERS: PCP Internal Medicine; Visit Provider Internal Medicine
DX: I10 Essential (primary) hypertension (principal)
CPT/HCPCS: 36415; 80053

== ENCOUNTER 2023-01-07 08:51 | Outpatient (REF) | payer MEDICARE, SELFPAY ==
[2022-08-08 14:27] VITALS: BP 132/68; BP 138/72
[2022-09-27 07:10] VITALS: BP 108/62; BMI 26.1
[2022-10-22 12:46] VITALS: BP 122/68; BMI 26.5
--- NOTE | ~2023-01-07 | US_ITS ---
EXAMINATION: US RETROPERITONEAL LIMITED (RENAL ONLY) CLINICAL INFORMATION: Cyst of kidney, acquired. COMPARISON: Ultrasound retroperitoneal limited (renal only) 11/21/2021 and 09/02/2020. TECHNIQUE: Real-time imaging of the kidneys. FINDINGS: RIGHT KIDNEY: 10.3 x 5.7 x 7.2 cm (SAG x AP x TRV). The kidney is normal in size, contour, and echogenicity. Renal cortical thickness is normal. No renal calculi or hydronephrosis. Thinly septated cyst in the lower pole measures 2.2 cm. Additional simple cysts in the mid kidney. No imaging follow-up is recommended. LEFT KIDNEY: 11.2 x 5.9 x 5.7 cm (SAG x AP x TRV). The kidney is normal in size, contour, and echogenicity. Renal cortical thickness is normal. No focal parenchymal lesions or hydronephrosis. There is a 4 mm nonobstructing calculus in the mid kidney. There is a 3 mm nonobstructing calculus in the lower pole. US/US renal BI IMPRESSION: Nonobstructing left renal calculi.
[2023-01-07 12:21] LABS: Cholesterol 154 mg/dL; HDL Cholesterol 64 mg/dL; LDL Cholesterol Calculated 80 mg/dl; Triglycerides 54 mg/dL
== END 2023-01-07 08:52 | disposition home or self-care (01) ==
LOC: HO.HMGCX 08:51
PROVIDERS: Absent Provider Internal Medicine Cardiovascular Disease; PCP Internal Medicine; Visit Provider Urology
DX: N28.1 Cyst of kidney, acquired (principal); I25.10 Atherosclerotic heart disease of native coronary artery without angina pectoris
CPT/HCPCS: 36415; 76775; 80061

== ENCOUNTER 2023-02-28 08:31 | Outpatient (REF) | payer MEDICARE, SELFPAY ==
[2022-08-08 14:27] VITALS: BP 132/68; BP 138/72
[2023-02-28 08:30] VITALS: BP 134/60; BMI 27.1
[2023-02-28 12:25] LABS: PSA,Total (Free>4and<10) 3.09 ng/mL (0.00-4.00)
== END 2023-02-28 08:32 | disposition home or self-care (01) ==
LOC: HO.HMGCLDS 08:31
PROVIDERS: PCP Internal Medicine; Visit Provider Urology
DX: Z12.5 Encounter for screening for malignant neoplasm of prostate (principal); N40.1 Benign prostatic hyperplasia with lower urinary tract symptoms
CPT/HCPCS: 36415; 84153

== ENCOUNTER → 2023-03-05 14:06 | Outpatient (BNVA) | payer MEDICARE, SELFPAY ==
[2022-08-08 14:27] VITALS: BP 132/68; BP 138/72
[2023-02-28 08:30] VITALS: BP 134/60; BMI 27.1
== END ==
PROVIDERS: PCP Internal Medicine; Visit Provider Urology
DX: N20.0 Calculus of kidney (principal); N28.1 Cyst of kidney, acquired
CPT/HCPCS: 99212

== ENCOUNTER → 2023-04-11 09:30 | Outpatient (REF) | payer MEDICARE, SELFPAY ==
[2022-08-08 14:27] VITALS: BP 132/68; BP 138/72
--- NOTE | 2023-04-11 09:35 | CA_ITS ---
Transthoracic Echocardiogram Patient (Last, First, Middle): Abel Guzman C Gender: Male Date of : 1950 Age: 72 Procedure Date: 04/11/2023 Procedure Type: Transthoracic Echocardiogram Location: OP Height: 180.34 cm Weight: 89.81 kg BSA: 2.10 m2 Heart Rate: 51 bpm BP: 115 / 70 mmHg File Keeper: ELSA Referring MD: Kenan Aguilar MD Symptoms: I25.10 - Atherosclerotic heart disease of [place] coronary artery without... Study Quality: Adequate ECG Rhythm: Sinus Conclusions: - The left ventricular systolic function is mildly decreased. The calculated ejection fraction is 48% by biplane method. - The basal inferior and basal inferolateral segments are akinetic. - There is mildly decreased right ventricular systolic function. - There is mild calcification of the aortic valve. - No obvious valvular pathology seen on this study. Findings Left Ventricle Normal left ventricular cavity size. The left ventricular systolic function is mildly decreased. The calculated ejection fraction is 48% by biplane method. There is evidence of regional wall motion abnormalities. Diastolic function is normal for age. There is mild septal asymmetric hypertrophy. Wall Motion Rest Echo Findings The basal inferior and basal inferolateral segments are akinetic. Right Ventricle Normal right ventricular cavity size. There is mildly decreased right ventricular systolic function. Atria Both atria are normal in size. Aortic Valve There is a normal trileaflet aortic valve. There is mild calcification of the aortic valve. There is no aortic valve stenosis. There is no aortic valve regurgitation. Mitral Valve The mitral valve appears normal. There is no mitral valve regurgitation. There is no mitral valve stenosis. Pulmonic Valve The pulmonic valve is likely normal. Tricuspid Valve There is trace tricuspid valve regurgitation. There is no evidence of pulmonary hypertension. Great Vessels The asc aorta is normal in size. Venous The inferior vena cava is normal in size and collapses greater than 50% with inspiration. Pericardium/Pleural There is no evidence of pericardial effusion. Prior Study Comparison No significant change compared to prior study dated: 10/23/2022. Recommendations, Care & Conclusions No obvious valvular pathology seen on this study. Measurements 2D Linear Measurements IVSd: 1.14 0.6-0.9/0.6-1.0 cm LVIDd: 5.17 3.9-5.3/4.2-5.9 cm LVIDd Index: 2.46 2.4-3.2/2.2-3.1 cm/m2 LVIDs: 2.99 2.0-3.6 cm LVPWd: 1.00 0.7-1.1 cm LA Diam: 4.10 2.7-3.8/3.0-4.0 cm LAIDs Index: 1.95 1.5-2.3 cm/m2 LV Mass: 262.53 67-162/88-224 g LV Mass Index: 125.01 43-95/49-115 g/m2 LVOT Diam: 2.20 3.0+(-)1.3 cm 2D Systolic Function EF 4C: 44.70 >55% EF 2C: 53.40 >55% EF BiP: 48.00 >55% Mitral Valve MV Pk E: 0.50 MV PK A: 0.59 MV Decel Time: 213.00 E/A: 0.80 E'Lateral: 5.66 E'Medial: 4.57 E/E' Med: 10.90 E/E' Lat: 8.80 PHT: 62.00 MVA PHT: 3.55 Decel Milam: 2.33 Aortic Valve AoV Pk Mohamud: 1.15 AoV Mn Mohamud: 0.86 AoV VTI: 0.29 AoV Pk Grad: 5.00 Aov Mn Grad: 3.00 KYLE Cont.VTI: 2.18 LVOT LVOT Pk Mohamud: 0.70 LVOT Mn Mohamud: 0.50 LVOT VTI: 0.16 LVOT Pk Grad: 2.00 LVOT Mn Grad: 1.00 LVOT Diam: 2.20 LVOT Area: 3.80 Diastolic Function MV Pk E: 0.50 MV Pk A: 0.59 E/A: 0.80 E'Medial: 4.57 E/E' Med: 10.90 E' Laterial: 5.66 E/E' Lat: 8.80 Right Ventricle TAPSE (mm): 16.80 TVS' Mohamud: 7.51 Tricuspid Valve TR Pk Mohamud: 1.99 TR Pk Grad: 16.00 RA Press: 3.00 RVSP: 19.00 Great Vessels Aorta Sinus of Valsalva: 3.60 2.0-3.5 cm Ao Asc: 3.70 2.1-3.4 cm Pulmonary Valve PV Pk Mohamud: 0.81 Peak PV Grad: 3.00 Updated in Other Vendor System with Status of Final Chetan Romero MD electronically signed on 04/13/2023 12:12:15 PM with status of Final
--- NOTE | 2023-04-11 09:35 | HM_ITS ---
* Total monitoring time about 3 days. * Underlying rhythm is sinus. Average ventricular rate 75/Min. Range 51 to 126/Min. * Rare supraventricular ectopy with minimal burden. * Rare ventricular ectopy. Low burden. Some couplets. One very brief run of 4 beats. * No significant pauses or AV blocks. * No patient markers or events in diary. MTDD
== END ==
LOC: HO.CARD 09:30
PROVIDERS: PCP Internal Medicine; Visit Provider Internal Medicine Cardiovascular Disease
DX: I25.10 Atherosclerotic heart disease of native coronary artery without angina pectoris (principal); I48.0 Paroxysmal atrial fibrillation
CPT/HCPCS: 93242; 93306

== ENCOUNTER 2023-04-15 07:51 | Outpatient (REF) | payer MEDICARE, SELFPAY ==
[2022-08-08 14:27] VITALS: BP 132/68; BP 138/72
[2023-04-15 08:38] LABS: Cholesterol 92 mg/dL; HDL Cholesterol 56 mg/dL; LDL Cholesterol Calculated 26 mg/dl; Triglycerides 50 mg/dL
== END 2023-04-15 07:52 | disposition home or self-care (01) ==
LOC: HO.LAB 07:51
PROVIDERS: PCP Internal Medicine; Visit Provider Internal Medicine Cardiovascular Disease
DX: E78.5 Hyperlipidemia, unspecified (principal)
CPT/HCPCS: 36415; 80061

== ENCOUNTER → 2023-05-06 08:18 | Outpatient (BNVA) | payer MEDICARE, SELFPAY ==
[2023-05-06 08:19] VITALS: BP 120/60; BP 120/65; BMI 27.3
== END ==
PROVIDERS: PCP Internal Medicine; Referring Provider Internal Medicine; Visit Provider Internal Medicine Cardiovascular Disease
DX: I25.10 Atherosclerotic heart disease of native coronary artery without angina pectoris (principal); I48.0 Paroxysmal atrial fibrillation
CPT/HCPCS: 93005; 99212

== ENCOUNTER 2023-05-16 10:39 | Outpatient (REF) | payer MEDICARE, SELFPAY ==
[2023-05-06 08:19] VITALS: BP 120/60; BP 120/65; BMI 27.3
[2023-05-16 12:01] LABS: Cholesterol 100 mg/dL; HDL Cholesterol 60 mg/dL; LDL Cholesterol Calculated 25 mg/dl; Triglycerides 79 mg/dL
[2023-05-20 16:08] LABS: CRP High Sensitivity 0.5 mg/L
== END 2023-05-16 10:40 | disposition home or self-care (01) ==
LOC: HO.LAB 10:39
PROVIDERS: PCP Internal Medicine; Visit Provider Internal Medicine Cardiovascular Disease
DX: I25.10 Atherosclerotic heart disease of native coronary artery without angina pectoris (principal); E78.5 Hyperlipidemia, unspecified
CPT/HCPCS: 36415; 80061; 86141

== ENCOUNTER 2023-06-13 09:26 | Outpatient (REF) | payer MEDICARE, SELFPAY ==
[2023-05-06 08:19] VITALS: BP 120/60; BP 120/65; BMI 27.3
[2023-06-13 12:09] LABS: Anion Gap 10 (12-20); Blood Urea Nitrogen 14 mg/dL (9-16); Calcium 9.5 mg/dL (8.4-10.2); Carbon Dioxide 28 mmol/L (22-29); Chloride 106 mmol/L (96-108); Estimated Glomerular Filt Rate > 60; Glucose Fasting 89 mg/dL (60-99); Potassium 4.4 mmol/L (3.3-5.1); Sodium 140 mmol/L (135-145)
== END 2023-06-13 09:27 | disposition home or self-care (01) ==
LOC: HO.LAB 09:26
PROVIDERS: PCP Internal Medicine; Visit Provider Nurse Practitioner Family
DX: Z13.1 Encounter for screening for diabetes mellitus (principal)
CPT/HCPCS: 36415; 80048

== ENCOUNTER 2023-10-17 07:35 | Outpatient (REF) | payer MEDICARE, SELFPAY ==
[2023-05-06 08:19] VITALS: BP 120/60; BP 120/65; BMI 27.3
[2023-10-17 08:58] LABS: Cholesterol 112 mg/dL (<200); HDL Cholesterol 63 mg/dL (>40); LDL Cholesterol Calculated 39 mg/dL (<100); Triglycerides 52 mg/dL (<150)
== END 2023-10-17 07:36 | disposition home or self-care (01) ==
LOC: HO.LAB 07:35
PROVIDERS: PCP Internal Medicine; Visit Provider Internal Medicine Cardiovascular Disease
DX: I25.10 Atherosclerotic heart disease of native coronary artery without angina pectoris (principal); E78.5 Hyperlipidemia, unspecified
CPT/HCPCS: 36415; 80061

== ENCOUNTER 2023-11-05 09:17 | Outpatient (AMB) | payer MEDICARE, SELFPAY ==
[2023-05-06 08:19] VITALS: BP 120/60; BP 120/65; BMI 27.3
[2023-11-05 09:23] VITALS: BP 130/82; PULSE 60; O2SAT 98; BMI 27.5
--- NOTE | 2023-11-05 09:23 | MHC.PC.OV ---
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 Required: No Prevention Rn: Not Required per policy Accompanied by: Self / Same As Patient Allergies shellfish derived Adverse Reaction (Intermediate, Verified 11/05/23 09:23) VOMITING Medication List - Last Reconciled 11/05/23 by Bandar Coronado MD alirocumab (Praluent Pen) 75 mg subcut Q2W aspirin (Adult Aspirin Regimen) 81 mg PO DAILY carvedilol 6.25 mg PO Q12H loperamide (Anti-Diarrheal (loperamide)) 2 mg PO Q6H PRN omeprazole 20 mg PO DAILY rosuvastatin 10 mg PO DAILY Tobacco use date assessed: 11/05/23 Fall risk assessment: No Falls in past year Last assessed Fall Risk: 11/05/23 Dental Screening Dental Screen Date: 11/05/23 Did you have a dental visit in the last 12 months?: Yes Did you have a dental problem in the last 6 months where you did not have access to dental care?: No Was dental information given to patient?: Patient has dentist HPI Medications F/U HPI Details CAD hyperlipidemia ond GED; sees cardiiology and doi ng well; compliant [facility] Medical History Screening for hyperlipidemia Screening for diabetes mellitus Renal cyst Rectal bleeding Other obstructive and reflux uropathy Benign prostatic hyperplasia with lower urinary tract symptoms Kidney stone Genetic testing Family history of pancreatic cancer History of colon cancer Surgical History Stented coronary artery History of colon resection (~12/14/14) History of colonoscopy (~10/18/14) Family History Father History of heart disease Mother History of colon cancer Brother History of liver cancer History of pancreatic cancer Sister History of lung cancer Daughter History of breast cancer Social History Housing: House Alcohol intake: current Alcohol intake frequency: a few times a month Patient Tobacco Use Status: Never used Tobacco e-Cigarette/Vaping Use: Never Used Second Hand Smoke Exposure: No service: No Current occupational status: retired Cognitive needs: No Hearing needs: No Vision needs: Yes (reading) Questionnaire PHQ-9 Over the last 2 weeks, how often have you been bothered by any of the following problems? 1. Little interest or pleasure in doing things: not at all 2. Feeling down, depressed, or hopeless: not at all 3. Trouble falling or staying asleep, or sleeping too much: not at all 4. Feeling tired or having little energy: not at all 5. Poor appetite or overeating: not at all 6. Feeling bad about yourself - or that you are a failure or have let yourself or your family down: not at all 7. Trouble concentrating on things, such as reading the newspaper or watching television: not at all 8. Moving or speaking so slowly that other people could have noticed. Or the opposite - being so fidgety or restless that you have been moving around a lot more than usual: not at all 9. Thoughts that you would be better off or of hurting yourself in some way: not at all Total score: 0 Depression Screening Interpretation: Negative Depression Screening Done: Yes 54780 - PHQ-9 Billing: Yes Source: Developed by Drs. Hansel Daniel, Rosemary oRdriguez, Ferdinand Tineo and colleagues, with an educational mallika from [employer]. Thrive Questionnaire Date Thrive assessed: 05/16/23 AUDIT C Alcohol Use Questionnaire (AUDIT-C) 1. How often do you have a drink containing alcohol?: Monthly or less 2. How many drinks containing alcohol do you have on a typical day when you are drinking?: 1 or 2 Total Score: 1 Score Reviewed/Action Taken: No FELICIA-7 AMB Questionnaire FELICIA-7 Date FELICIA - 7 assessed: 05/16/23 Source: Developed by Drs. Hansel Daniel, Ferdinand Costello and colleagues, with an educational mallika from [employer]. Review of Systems Const Denies chills, Denies headache(s) and Denies weight loss ENT Denies headache(s) Card Denies chest pain, Denies syncope, Denies irregular heart rhythm and Denies dyspnea Resp Denies chest congestion, Denies cough and Denies dyspnea GI Denies abdominal pain, Denies change in stool character, Denies nausea and Denies vomiting Musc Denies deformity and Denies joint swelling Neuro Denies syncope and Denies headache(s) Physical exam (Primary Care) Vital Signs: Last Vital Signs Pulse 60 11/05/23 09:23 BP 130/82 11/05/23 09:23 Pulse Ox 98 11/05/23 09:23 Oxygen Delivery Method Room Air 11/05/23 09:23 BMI result Body Mass Index 27.5 Tobacco/Smoking Status: Tobacco use Status Tobacco use date assessed 11/05/23 11/05/23 09:24 Patient Tobacco Use Status Never used Tobacco 11/05/23 09:24 e-Cigarette/Vaping Use Never Used 11/05/23 09:24 PHQ-9: PHQ-9 Score PHQ-9: Total score 0 11/05/23 09:24 Depression Screening Interpretation: Negative Thrive Assessment: Date of Thrive Assessment Date Thrive assessed 05/16/23 11/05/23 09:24 Const General: cooperative, comfortable, no acute distress and alert Neck Neck: Yes no lymphadenopathy Thyroid: Thyroid normal Resp Effort & Inspection: normal respiratory effort Auscultation: clear to auscultation bilaterally Percussion: percussion normal Cardio Jugular venous distension: no JVD Palpation: normal PMI Rate: regular rate Rhythm: regular rhythm Heart sounds: S1 normal heart sound present and S2 normal heart sound present GI Inspection: Yes normal to inspection Palpation (GI): No hepatosplenomegaly present Skin General skin exam: no rashes or lesions noted Extrem General: Yes no clubbing, cyanosis or edema Assessment and Plan Assessment & Plan (1) Hyperlipidemia: Code(s): E78.5 - Hyperlipidemia, unspecified Plan: stable; same rx (2) CAD (coronary atherosclerotic disease): Code(s): I25.10 - Atherosclerotic heart disease of [place] coronary artery without angina pectoris Plan: stable; as per cardiology (3) GERD (gastroesophageal reflux disease): Code(s): K21.9 - Gastro-esophageal reflux disease without esophagitis Plan: stable; same meds Coding Level of Care Code Est Pt Level 4 (10966) Diagnoses Hyperlipidemia E78.5 CAD (coronary atherosclerotic disease) I25.10 GERD (gastroesophageal reflux disease) K21.9
== END 2023-11-05 09:57 | disposition home or self-care (01) ==
PROVIDERS: PCP Internal Medicine; Visit Provider Internal Medicine
DX: E78.5 Hyperlipidemia, unspecified (principal); I25.10 Atherosclerotic heart disease of native coronary artery without angina pectoris; K21.9 Gastro-esophageal reflux disease without esophagitis
CPT/HCPCS: 99214

== ENCOUNTER 2024-02-20 09:06 | Outpatient (REF) | payer MEDICARE, SELFPAY ==
[2023-05-06 08:19] VITALS: BP 120/60; BP 120/65; BMI 27.3
[2024-02-20 10:50] LABS: Alanine Aminotransferase 116 U/L (0-40); Alkaline Phosphatase 269 U/L (39-117); Anion Gap 14 (12-20); Aspartate Amino Transferase 101 U/L (5-37); Bilirubin Total 13.4 mg/dL (0.0-1.0); Blood Urea Nitrogen 23 mg/dL (9-16); Calcium 9.6 mg/dL (8.4-10.2); Carbon Dioxide 24 mmol/L (22-29); Chloride 105 mmol/L (96-108); Estimated Glomerular Filt Rate > 60; Glucose Fasting 102 mg/dL (60-99); Potassium 4.1 mmol/L (3.3-5.1); Sodium 139 mmol/L (135-145); Total Protein 7.1 g/dL (6.5-8.0)
== END 2024-02-20 09:07 | disposition home or self-care (01) ==
LOC: HO.LAB 09:06
PROVIDERS: PCP Internal Medicine; Visit Provider Internal Medicine
DX: N28.9 Disorder of kidney and ureter, unspecified (principal)
CPT/HCPCS: 36415; 80053

== ENCOUNTER 2024-02-21 10:29 | Outpatient (AMB) | payer MEDICARE, SELFPAY ==
[2023-05-06 08:19] VITALS: BP 120/60; BP 120/65; BMI 27.3
[2024-02-21 10:31] VITALS: BP 132/72; PULSE 73; O2SAT 97; BMI 27.1
--- NOTE | 2024-02-21 10:31 | A.OFFPC_ITS ---
Vital Signs 02/21/24 10:31 Height 5 ft 11 in Weight 194 lb BMI 27.1 BP 132/72 Blood Pressure Location Lt brachial Position Sitting Pulse 73 Pulse Source Pulse Oximeter Pulse Oximetry (%) 97 Oxygen Delivery Method Room Air Intake Visit Reasons: go over lab reports Channel Business Manager Required: No [facility] Counselor: Present Allergies amoxicillin Allergy (Unknown, Verified 02/21/24 10:35) Unknown shellfish derived Adverse Reaction (Intermediate, Verified 02/21/24 10:31) VOMITING Medication List - Last Reconciled 02/21/24 by Bandar Coronado MD alirocumab (Praluent Pen) 75 mg subcut Q2W aspirin (Adult Aspirin Regimen) 81 mg PO DAILY carvedilol 6.25 mg PO Q12H loperamide (Anti-Diarrheal (loperamide)) 2 mg PO Q6H PRN omeprazole 20 mg PO DAILY rosuvastatin 10 mg PO DAILY Tobacco use date assessed: 02/21/24 Fall risk assessment: No Falls in past year Last assessed Fall Risk: 02/21/24 Dental Screening Dental Screen Date: 02/21/24 Did you have a dental visit in the last 12 months?: Yes Did you have a dental problem in the last 6 months where you did not have access to dental care?: No Was dental information given to patient?: Patient has dentist HPI go over lab reports HPI Details developed painless jaundice; had an mri showing gall stones and thickened contracted gall bladder; has seen gi in [facility]; bili still elevated PFSH Medical History Screening for hyperlipidemia Screening for diabetes mellitus Renal cyst Rectal bleeding Other obstructive and reflux uropathy Benign prostatic hyperplasia with lower urinary tract symptoms Kidney stone Genetic testing Family history of pancreatic cancer History of colon cancer Surgical History Stented coronary artery History of colon resection (~12/14/14) History of colonoscopy (~10/18/14) Family History Father History of heart disease Mother History of colon cancer Brother History of liver cancer History of pancreatic cancer Sister History of lung cancer Daughter History of breast cancer Social History Housing: House Alcohol intake: current Alcohol intake frequency: a few times a month Patient Tobacco Use Status: Never used Tobacco e-Cigarette/Vaping Use: Never Used Second Hand Smoke Exposure: No service: No Current occupational status: retired Cognitive needs: No Hearing needs: No Vision needs: Yes (reading) Questionnaire PHQ-9 Over the last 2 weeks, how often have you been bothered by any of the following problems? 1. Little interest or pleasure in doing things: not at all 2. Feeling down, depressed, or hopeless: not at all 3. Trouble falling or staying asleep, or sleeping too much: not at all 4. Feeling tired or having little energy: not at all 5. Poor appetite or overeating: not at all 6. Feeling bad about yourself - or that you are a failure or have let yourself or your family down: not at all 7. Trouble concentrating on things, such as reading the newspaper or watching television: not at all 8. Moving or speaking so slowly that other people could have noticed. Or the opposite - being so fidgety or restless that you have been moving around a lot more than usual: not at all 9. Thoughts that you would be better off or of hurting yourself in some way: not at all Total score: 0 Depression Screening Interpretation: Negative Depression Screening Done: Yes 55854 - PHQ-9 Billing: Yes Source: Developed by Drs. Hansel Daniel, Rosemary Rodriguez, Ferdinand Tineo and colleagues, with an educational mallika from [employer]. Thrive Questionnaire Date Thrive assessed: 02/21/24 I am a: Patient What is your living situation today?: I have a steady place to live Within the past 12 months, did the food you bought not last and you didn't have the money to get more?: Never true Within the past 12 months, did you worry whether your food would run out before you got money to buy more?: Never true Do you have trouble paying for medicines?: No Do you have trouble getting transportation to medical appointments?: No Do you have trouble paying your heating and electricity bill?: No Do you have trouble taking care of your child, family member or friend?: No Do you have trouble with day-to-day activities such as bathing, preparing meals, shopping, managing finances, etc.?: No Are you currently unemployed and looking for a job?: No Are you interested in more education?: No Please select the resources that you would like help with: None THRIVE Score: 0 AUDIT C Alcohol Use Questionnaire (AUDIT-C) 1. How often do you have a drink containing alcohol?: Monthly or less 2. How many drinks containing alcohol do you have on a typical day when you are drinking?: 1 or 2 Total Score: 1 Score Reviewed/Action Taken: No FELICIA-7 AMB Questionnaire FELICIA-7 Date FELICIA - 7 assessed: 02/21/24 Feeling nervous, anxious, or on edge: 0 = Not at all Not being able to stop or control worryin = Not at all Worrying too much about different things: 0 = Not at all Trouble relaxin = Not at all Being so restless that it is hard to sit still: 0 = Not at all Becoming easily annoyed or irritable: 0 = Not at all Feeling afraid as if something awful might happen: 0 = Not at all Total FELICIA-7 score (0-4 normal; 5-9 mild; 10-14 moderate; 15-21 severe): 0 Source: Developed by Drs. Hansel Daniel, Rosemary Rodriguez, Ferdinand Tineo and colleagues, with an educational mallika from [employer]. FELICIA-7 Assessment Billing FELICIA-7 Assessment Tool: FELICIA-7 Assessment 57072 Review of Systems Const Denies chills, Denies headache(s) and Denies weight loss ENT Denies headache(s) Card Denies chest pain, Denies syncope, Denies irregular heart rhythm and Denies dyspnea Resp Denies chest congestion, Denies cough and Denies dyspnea GI Denies abdominal pain, Denies change in stool character, Denies nausea and Denies vomiting Musc Denies deformity and Denies joint swelling Neuro Denies syncope and Denies headache(s) Physical exam (Primary Care) Vital Signs: Last Vital Signs Pulse 73 02/21/24 10:31 BP 132/72 02/21/24 10:31 Pulse Ox 97 02/21/24 10:31 Oxygen Delivery Method Room Air 02/21/24 10:31 BMI result Body Mass Index 27.1 Tobacco/Smoking Status: Tobacco use Status Tobacco use date assessed 02/21/24 02/21/24 10:32 Patient Tobacco Use Status Never used Tobacco 02/21/24 10:32 e-Cigarette/Vaping Use Never Used 02/21/24 10:32 PHQ-9: PHQ-9 Score PHQ-9: Total score 0 02/21/24 10:32 Depression Screening Interpretation: Negative Thrive Assessment: Date of Thrive Assessment Date Thrive assessed 02/21/24 02/21/24 10:32 Const General: cooperative, comfortable, no acute distress and alert Neck Neck: Yes no lymphadenopathy Thyroid: Thyroid normal Resp Effort & Inspection: normal respiratory effort Auscultation: clear to auscultation bilaterally Percussion: percussion normal Cardio Jugular venous distension: no JVD Palpation: normal PMI Rate: regular rate Rhythm: regular rhythm Heart sounds: S1 normal heart sound present and S2 normal heart sound present GI Inspection: Yes normal to inspection Palpation (GI): No hepatosplenomegaly present Skin General skin exam: no rashes or lesions noted Extrem General: Yes no clubbing, cyanosis or edema Assessment and Plan Assessment & Plan (1) Painless jaundice: Code(s): R17 - Unspecified jaundice Plan: to see gi again Orders: Orders Liver Panel Today R17 - Unspecified jaundice Referrals Gastroenterology Referral R17 - Unspecified jaundice Coding Level of Care Code Est Pt Level 3 (87655) Diagnoses Painless jaundice R17 Additional Codes FELICIA-7 Assessment Billing - FELICIA-7 Assessment Tool: FELICIA-7 Assessment 22727 ([id number])
== END 2024-02-21 11:13 | disposition home or self-care (01) ==
PROVIDERS: PCP Internal Medicine; Visit Provider Internal Medicine
DX: R17 Unspecified jaundice (principal)
CPT/HCPCS: 99213

== ENCOUNTER 2024-02-24 09:08 | Outpatient (REF) | payer MEDICARE, SELFPAY ==
[2023-05-06 08:19] VITALS: BP 120/60; BP 120/65; BMI 27.3
[2024-02-24 10:14] LABS: Alanine Aminotransferase 123 U/L (0-40); Albumin Level 3.8 g/dL (3.5-5.0); Alkaline Phosphatase 302 U/L (39-117); Aspartate Amino Transferase 89 U/L (5-37); Bilirubin Direct 9.7 mg/dL (0.0-0.5); Bilirubin Total 12.3 mg/dL (0.0-1.0)
== END 2024-02-24 09:09 | disposition home or self-care (01) ==
LOC: HO.LAB 09:08
PROVIDERS: PCP Internal Medicine; Visit Provider Internal Medicine
DX: R17 Unspecified jaundice (principal)
CPT/HCPCS: 36415; 80076

== ENCOUNTER 2024-02-27 12:49 | Outpatient (REF) | payer MEDICARE, SELFPAY ==
[2023-05-06 08:19] VITALS: BP 120/60; BP 120/65; BMI 27.3
[2024-02-27 14:45] LABS: Prostate Specific Antigen 2.84 ng/mL (<0.05-4.0)
== END 2024-02-27 12:50 | disposition home or self-care (01) ==
LOC: HO.LAB 12:49
PROVIDERS: PCP Internal Medicine; Visit Provider Urology
DX: N20.0 Calculus of kidney (principal); Z12.5 Encounter for screening for malignant neoplasm of prostate
CPT/HCPCS: 36415; 84153

== ENCOUNTER 2024-03-06 08:15 | Outpatient (AMB) | payer MEDICARE, SELFPAY ==
[2023-05-06 08:19] VITALS: BP 120/60; BP 120/65; BMI 27.3
--- NOTE | 2024-03-06 08:24 | A.OFFVIS_ITS ---
Intake Intake Visit Reasons: 1Y PSA(set)Confirmed Intake Note: Patient presents today for a follow up on: PSA Meds- None Allergies to Antibiotic- Amoxicillin Blood Thinner- Aspirin Intermediate Project Manager Required: No Accompanied by: Self / Same As Patient Allergies amoxicillin Allergy (Unknown, Verified 03/06/24 08:29) Unknown shellfish derived Adverse Reaction (Intermediate, Verified 03/06/24 08:29) VOMITING HPI HPI Comments History of Present Illness Details Abel is a pleasant male. He is a patient of Dr. Coronado. Seen for the following urologic conditions - nephrolithiasis and renal cysts - BPH Yearly follow-up Discussed renal ultrasound. Persistent small stones PSA stable Current episode of jaundice secondary to reaction to amoxicillin Slow recovery Definitely has noticed discoloration of urine Reassurance provided May follow-up p.r.n.. Nephrolithiasis Asymptomatic Imaging - 12/22 renal ultrasound with bilateral s imple cyst and 6 mm stone - 11/21 renal ultrasound right renal cys ts ranging from 1.1-4.4 cm stable since prior investigation, no stone seen - 02/21 renal ultrasound right renal cyst s with 2 small stones on left - 02/22 renal ultrasound 2 small stones l eft 3 mm unchanged Lower urinary tract symptoms Minimal issue with voiding parameters PSA - 12/21 2.8, 08/22 2.4, 02/21 3.1, 02/22 2.9 PFSH Medical History Screening for hyperlipidemia Screening for diabetes mellitus Renal cyst Rectal bleeding Other obstructive and reflux uropathy Benign prostatic hyperplasia with lower urinary tract symptoms Kidney stone Genetic testing Family history of pancreatic cancer History of colon cancer Surgical History Stented coronary artery History of colon resection (~12/14/14) History of colonoscopy (~10/18/14) Family History Father History of heart disease Mother History of colon cancer Brother History of liver cancer History of pancreatic cancer Sister History of lung cancer Daughter History of breast cancer Social History Housing: House Alcohol intake: current Alcohol intake frequency: a few times a month Patient Tobacco Use Status: Never used Tobacco e-Cigarette/Vaping Use: Never Used Second Hand Smoke Exposure: No service: No Current occupational status: retired Cognitive needs: No Hearing needs: No Vision needs: Yes (reading) Review of Systems Const Denies chills and Denies fever(s) Card Reports no additional complaints and Denies syncope Resp Denies cough GI Denies abdominal pain and Denies heartburn Reports as per HPI and Denies change in libido Neuro Denies syncope Psych Denies change in libido Endo Denies change in libido Physical Exam Const General: cooperative, healthy appearing, comfortable and no acute distress Orientation/consciousness: patient oriented x3 HEENT Face and sinus: Yes normal facial exam Mouth: moist mucous membranes Neck Neck: Yes normal visual inspection, Yes full ROM and Yes trachea midline Chest Chest palpation & inspection: normal inspection of the chest Resp Effort & Inspection: normal respiratory effort, able to speak in complete sentences and no respiratory distress GI Inspection: Yes normal to inspection Back/Spine/Pelvis Cervical Spine: normal cervical lordosis Thoracic/Lumbar Spine: thoracic and lumbar spine normal to inspection Skin General skin exam: no rashes or lesions noted Neuro General: patient oriented x3, gait normal, tone normal and moves all extremities Extrem General: Yes normal to inspection and Yes capillary refill normal Assessment & Plan Assessment & Plan (1) Kidney stone: Code(s): N20.0 - Calculus of kidney Plan P.r.n. follow-up Patient Instructions: Imaging studies, laboratory and physical exam results were discussed and review ed in detail. No major barriers to patient understanding were identified. An opportunity to ask questions regarding the treatment plan was provided. All questions were answered. The patient expressed understanding and agreement with the above treatment plan. The patient is aware they should contact our office by phone for worsening of their current condition or the appearance of new urologic symptoms. Compliance is encouraged with any medications and followup testing that is ordered. It is a privilege to participate in the urologic care of your patient. If you have any questions or concerns regarding treatment for the above conditions, or other urologic issues, please do not hesitate to contact me. The office telephone contact is [phone]. This note is constructed using voice recognition software. While every effort has been made to ensure accuracy slot tag inserter errors may have been included. Yours sincerely, Dr Zoltan Stafford MD, [facility] Providers of Expert, Compassionate Care for the Genitourinary System Coding Level of Care Code Est Pt Level 4 (14696) Diagnoses Kidney stone N20.0
== END 2024-03-06 08:57 | disposition home or self-care (01) ==
PROVIDERS: Visit Provider Urology
DX: N20.0 Calculus of kidney (principal)
CPT/HCPCS: 99213

== ENCOUNTER → 2024-03-06 08:15 | Outpatient (BNVA) | payer MEDICARE, SELFPAY ==
[2023-05-06 08:19] VITALS: BP 120/60; BP 120/65; BMI 27.3
== END ==
PROVIDERS: Visit Provider Urology
DX: N20.0 Calculus of kidney (principal)
CPT/HCPCS: 99212

== ENCOUNTER 2024-05-11 08:26 | Outpatient (AMB) | payer MEDICARE, SELFPAY ==
[2023-05-06 08:19] VITALS: BP 120/60; BP 120/65; BMI 27.3
[2024-05-11 08:44] VITALS: BP 124/80; PULSE 63; BMI 26.7
--- NOTE | 2024-05-11 08:44 | A.OFFVIS_ITS ---
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 He denies any exertional symptoms. He complains of pain like sensation in his precordial area which is not exertional nature can happen any time and is quite different than his myocardial infarction pain and last for few seconds. Patient denies any other symptoms of shortness of breath, orthopnea, PND. In January he had cholestatic jaundice related to amoxicillin therapy. Denies any prolonged palpitation irregular heartbeat. No lightheadedness, syncope. Recently got a letter from insurance company regarding Praluent which would not be covered. His last LDL was 39 mg/dL well optimized. [facility] Medical History Screening for hyperlipidemia Screening for diabetes mellitus Renal cyst Rectal bleeding Other obstructive and reflux uropathy Benign prostatic hyperplasia with lower urinary tract symptoms Kidney stone Genetic testing Family history of pancreatic cancer History of colon cancer Surgical History Stented coronary artery History of colon resection (~12/14/14) History of colonoscopy (~10/18/14) Family History Father History of heart disease Mother History of colon cancer Brother History of liver cancer History of pancreatic cancer Sister History of lung cancer Daughter History of breast cancer Social History Housing: House Alcohol intake: current Alcohol intake frequency: a few times a month Patient Tobacco Use Status: Never used Tobacco e-Cigarette/Vaping Use: Never Used Second Hand Smoke Exposure: No service: No Current occupational status: retired Cognitive needs: No Hearing needs: No Vision needs: Yes (reading) Review of Systems Const Denies chills, Denies fatigue, Denies fever(s), Denies frequent falls, Denies weakness, Denies weight gain and Denies weight loss ENT Denies dizziness Card Denies chest pain, Denies leg edema, Denies lightheadedness, Denies palpitations, Denies dyspnea, Denies dyspnea on exertion, Denies orthopnea and Denies other (loss of consciousness) Resp Denies cough, Denies dyspnea and Denies dyspnea on exertion GI Denies hematochezia and Denies change in stool character Musc Denies abnormal gait, Denies muscle weakness, Denies numbness, Denies radiating pain into limb and Denies tingling Neuro Denies Abnormal speech present, Denies abnormal gait, Denies dizziness, Denies frequent falls, Denies numbness, Denies tingling and Denies weakness Endo Denies fatigue and Denies palpitations Physical Exam Vital Signs: Last Vital Signs Pulse 63 05/11/24 08:44 BP 124/80 05/11/24 08:44 BMI result Body Mass Index 26.7 Neuro Speech: No Abnormal speech present Office Procedures EKG Details: EKG shows normal sinus rhythm with Q-waves in inferior leads consistent with prior myocardial infarction 36292-[id number], Complete Assessment & Plan Assessment & Plan (1) CAD (coronary atherosclerotic disease): Code(s): I25.10 - Atherosclerotic heart disease of [place] coronary artery without angina pectoris Category: Medical Plan: Coronary artery 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 Currently doing well. His chest pain is very atypical for myocardial ischemia and unlikely to represent progressive coronary disease. Discussed with him. Continue lifelong aspirin therapy. Continue aggressive risk factor modification including current PCSK9 inhibitor therapy as well as statin therapy. Could not tolerate higher dose of statins. Will switch is therapy to Repatha and try to obtain a prior authorization from his insurance company. His LDL is extremely well optimized. Blood pressure is also currently well optimized. Advised to maintain activity level as tolerated. Plan for stress test next year. (2) Paroxysmal A-fib: Code(s): I48.0 - Paroxysmal atrial fibrillation Category: Medical Plan: Paroxysmal atrial fibrillation in the setting of pericarditis. Currently has no symptoms related to it. No change in therapy. Does not require anticoagulation therapy. Advised to call me with any new symptoms. Avoidance of stimulants was discussed. Will follow up in the clinic in 1 year's time. Thank you for allowing me to partake in his care Medications: New evolocumab (Repatha SureClick) 140 mg subcut Q2W 2 mL 5RF Discontinued alirocumab (Praluent Pen) Discontinued Reason: Doctor's Order 75 mg subcut Q2W 6 mL 2RF Coding Level of Care Code Est Pt Level 4 (97162) Diagnoses CAD (coronary atherosclerotic disease) I25.10 Paroxysmal A-fib I48.0 CPT Codes EKG - CPT: 40345-[id number], Complete ([id number])
== END 2024-05-11 09:13 | disposition home or self-care (01) ==
PROVIDERS: PCP Internal Medicine; Visit Provider Internal Medicine Cardiovascular Disease
DX: I25.10 Atherosclerotic heart disease of native coronary artery without angina pectoris (principal); I48.0 Paroxysmal atrial fibrillation
CPT/HCPCS: 93010; 99214

== ENCOUNTER → 2024-05-11 08:26 | Outpatient (BNVA) | payer MEDICARE, SELFPAY ==
[2023-05-06 08:19] VITALS: BP 120/60; BP 120/65; BMI 27.3
== END ==
PROVIDERS: PCP Internal Medicine; Visit Provider Internal Medicine Cardiovascular Disease
DX: I25.10 Atherosclerotic heart disease of native coronary artery without angina pectoris (principal); I48.0 Paroxysmal atrial fibrillation
CPT/HCPCS: 93005; 99212

== ENCOUNTER 2024-05-22 08:27 | Outpatient (AMB) | payer MEDICARE, SELFPAY ==
[2023-05-06 08:19] VITALS: BP 120/60; BP 120/65; BMI 27.3
[2024-05-22 08:32] VITALS: BP 118/64; PULSE 60; O2SAT 95; BMI 26.6
--- NOTE | 2024-05-22 08:32 | A.OFFPC_ITS ---
Vital Signs 05/22/24 08:32 Height 5 ft 11 in Weight 191 lb 0.2 oz BMI 26.6 BP 118/64 Blood Pressure Location Lt brachial Position Sitting Pulse 60 Pulse Source Pulse Oximeter Pulse Oximetry (%) 95 Oxygen Delivery Method Room Air Intake Visit Reasons: 6 month f/u Intake Note: Patient is here to follow up on 6 month Allergies amoxicillin Allergy (Unknown, Verified 05/22/24 08:33) Unknown shellfish derived Adverse Reaction (Intermediate, Verified 05/22/24 08:33) VOMITING Medication List - Last Reconciled 05/22/24 by Bandar Coronado MD aspirin (Adult Aspirin Regimen) 81 mg PO DAILY carvedilol 6.25 mg PO Q12H evolocumab (Repatha SureClick) 140 mg subcut Q2W hydroxyzine pamoate 25 mg PO QID PRN loperamide (Anti-Diarrheal (loperamide)) 2 mg PO Q6H PRN omeprazole 20 mg PO DAILY rosuvastatin 10 mg PO DAILY Tobacco use date assessed: 05/22/24 Fall risk assessment: No Falls in past year Last assessed Fall Risk: 05/22/24 Dental Screening Dental Screen Date: 02/21/24 Did you have a dental visit in the last 12 months?: Yes Did you have a dental problem in the last 6 months where you did not have access to dental care?: No Was dental information given to patient?: Patient has dentist HPI 6 month f/u HPI Details hyperlip on rx; compliant [facility] Medical History Screening for hyperlipidemia Screening for diabetes mellitus Renal cyst Rectal bleeding Other obstructive and reflux uropathy Benign prostatic hyperplasia with lower urinary tract symptoms Kidney stone Genetic testing Family history of pancreatic cancer History of colon cancer Surgical History Stented coronary artery History of colon resection (~12/14/14) History of colonoscopy (~10/18/14) Family History Father History of heart disease Mother History of colon cancer Brother History of liver cancer History of pancreatic cancer Sister History of lung cancer Daughter History of breast cancer Social History Housing: House Alcohol intake: current Alcohol intake frequency: a few times a month Patient Tobacco Use Status: Never used Tobacco e-Cigarette/Vaping Use: Never Used Second Hand Smoke Exposure: No service: No Current occupational status: retired Cognitive needs: No Hearing needs: No Vision needs: Yes (reading) Questionnaire Thrive Questionnaire Date Thrive assessed: 02/21/24 I am a: Patient What is your living situation today?: I have a steady place to live Within the past 12 months, did the food you bought not last and you didn't have the money to get more?: Never true Within the past 12 months, did you worry whether your food would run out before you got money to buy more?: Never true Do you have trouble paying for medicines?: No Do you have trouble getting transportation to medical appointments?: No Do you have trouble paying your heating and electricity bill?: No Do you have trouble taking care of your child, family member or friend?: No Do you have trouble with day-to-day activities such as bathing, preparing meals, shopping, managing finances, etc.?: No Are you currently unemployed and looking for a job?: No Are you interested in more education?: No Please select the resources that you would like help with: None THRIVE Score: 0 AUDIT C Alcohol Use Questionnaire (AUDIT-C) 1. How often do you have a drink containing alcohol?: Monthly or less 2. How many drinks containing alcohol do you have on a typical day when you are drinking?: 1 or 2 Total Score: 1 Score Reviewed/Action Taken: No FELICIA-7 AMB Questionnaire FELICIA-7 Date FELICIA - 7 assessed: 02/21/24 Source: Developed by Drs. Hansel Daniel, Rosemary Rodriguez, Ferdinand Tineo and colleagues, with an educational mallika from [employer]. Review of Systems Const Denies chills, Denies headache(s) and Denies weight loss ENT Denies headache(s) Card Denies chest pain, Denies syncope, Denies irregular heart rhythm and Denies dyspnea Resp Denies chest congestion, Denies cough and Denies dyspnea GI Denies abdominal pain, Denies change in stool character, Denies nausea and Denies vomiting Musc Denies deformity and Denies joint swelling Neuro Denies syncope and Denies headache(s) Physical exam (Primary Care) Vital Signs: Last Vital Signs Pulse 60 05/22/24 08:32 BP 118/64 05/22/24 08:32 Pulse Ox 95 05/22/24 08:32 Oxygen Delivery Method Room Air 05/22/24 08:32 BMI result Body Mass Index 26.6 Tobacco/Smoking Status: Tobacco use Status Tobacco use date assessed 05/22/24 05/22/24 08:34 Patient Tobacco Use Status Never used Tobacco 05/22/24 08:34 e-Cigarette/Vaping Use Never Used 05/22/24 08:34 Thrive Assessment: Date of Thrive Assessment Date Thrive assessed 02/21/24 05/22/24 08:34 Const General: cooperative, comfortable, no acute distress and alert Neck Neck: Yes no lymphadenopathy Thyroid: Thyroid normal Resp Effort & Inspection: normal respiratory effort Auscultation: clear to auscultation bilaterally Percussion: percussion normal Cardio Jugular venous distension: no JVD Palpation: normal PMI Rate: regular rate Rhythm: regular rhythm Heart sounds: S1 normal heart sound present and S2 normal heart sound present GI Inspection: Yes normal to inspection Palpation (GI): No hepatosplenomegaly present Skin General skin exam: no rashes or lesions noted Extrem General: Yes no clubbing, cyanosis or edema Assessment and Plan Assessment & Plan (1) Hyperlipidemia: Code(s): E78.5 - Hyperlipidemia, unspecified Plan: stable; same rx Orders: Orders Lipid Panel Today Z13.220 - Encounter for screening for lipoid disorders Complete Blood Count Auto Diff Today Z13.0 - Encounter for screening for diseases of the blood and blood-forming organs and certain disorders involving the immune mechanism Thyroid Stimulating Hormone Today Z13.29 - Encounter for screening for other suspected endocrine disorder Comprehensive [place] Neck. Panel Fast Today Z13.9 - Encounter for screening, unspecified Prostate Specific Antigen Scr Today Z00.00 - Encounter for general adult medical examination without abnormal findings Coding Level of Care Code Est Pt Level 3 (11008) Diagnoses Hyperlipidemia E78.5
== END 2024-05-22 08:56 | disposition home or self-care (01) ==
PROVIDERS: PCP Internal Medicine; Visit Provider Internal Medicine
DX: E78.5 Hyperlipidemia, unspecified (principal)
CPT/HCPCS: 99213

== ENCOUNTER 2024-06-03 07:26 | Outpatient (REF) | payer MEDICARE, SELFPAY ==
[2023-05-06 08:19] VITALS: BP 120/60; BP 120/65; BMI 27.3
[2024-06-03 08:31] LABS: Basophils Percent Auto 0.9 % (0-2); Eosinophils Absolute Auto 0.3 X10*3/uL (0.0-0.4); Eosinophils Percent Auto 6.3 % (0-4); Hematocrit 46.4 % (42.0-52.0); Hemoglobin 15.7 g/dl (14.0-18.0); Imm Gran Abs Auto 0.01 X10*3/uL (0.00-0.03); Imm Gran Pct Auto 0.2 % (0.0-0.4); Lymphocytes Absolute Auto 1.6 X10*3/uL (1.2-4.9); MANUAL DIFF FLAG NO; Mean Corpuscular HGB Conc 33.8 g/dl (31.0-36.0); Mean Corpuscular Hemoglobin 32.6 pg (27.0-33.0); Mean Corpuscular Volume 96.3 fL (80.0-98.0); Mean Platelet Volume 9.7 fL (9.4-12.4); Monocytes Absolute Auto 0.5 X10*3/uL (0.1-1.2); Monocytes Percent Auto 11.5 % (2-11); Neutrophils Absolute Auto 2.1 x10*3/uL (2.0-8.3); Neutrophils Percent Auto 46.1 % (45-73); Platelet Count 210 X10*3/uL (160-400); Red Blood Count 4.82 X10*6/uL (4.60-5.80); Red Cell Distribution Width 12.2 % (11.0-16.0); White Blood Count 4.6 X10*3/uL (4.8-10.8)
[2024-06-03 09:16] LABS: Alanine Aminotransferase 19 U/L (0-40); Albumin Level 4.2 g/dL (3.5-5.0); Alkaline Phosphatase 78 U/L (39-117); Anion Gap 10 (12-20); Aspartate Amino Transferase 17 U/L (5-37); Bilirubin Total 0.5 mg/dL (0.0-1.0); Blood Urea Nitrogen 15 mg/dL (9-16); Calcium 9.5 mg/dL (8.4-10.2); Carbon Dioxide 28 mmol/L (22-29); Chloride 107 mmol/L (96-108); Cholesterol 119 mg/dL (<200); Estimated Glomerular Filt Rate > 60; Glucose Fasting 100 mg/dL (60-99); HDL Cholesterol 68 mg/dL (>40); LDL Cholesterol Calculated 42 mg/dL (<100); Potassium 4.2 mmol/L (3.3-5.1); Sodium 141 mmol/L (135-145); Total Protein 6.9 g/dL (6.5-8.0); Triglycerides 48 mg/dL (<150)
[2024-06-03 09:22] LABS: Thyroid Stimulating Hormone 2.57 uIU/mL (0.32-4.0)
[2024-06-03 11:11] LABS: Prostate Specific Antigen Scr 3.41 ng/mL (<0.05-4.0)
== END 2024-06-03 07:27 | disposition home or self-care (01) ==
LOC: HO.LAB 07:26
PROVIDERS: PCP Internal Medicine; Visit Provider Internal Medicine
DX: Z00.00 Encounter for general adult medical examination without abnormal findings (principal); Z12.5 Encounter for screening for malignant neoplasm of prostate; Z13.6 Encounter for screening for cardiovascular disorders; Z13.29 Encounter for screening for other suspected endocrine disorder; Z13.0 Encounter for screening for diseases of the blood and blood-forming organs and certain disorders involving the immune mechanism; Z13.220 Encounter for screening for lipoid disorders
CPT/HCPCS: 36415; 80053; 80061; 84153; 84443; 85025

== ENCOUNTER 2024-07-01 08:26 | Outpatient (AMB) | payer MEDICARE, SELFPAY ==
[2023-05-06 08:19] VITALS: BP 120/60; BP 120/65; BMI 27.3
[2024-07-01 08:34] VITALS: BP 104/70; PULSE 87; O2SAT 98; BMI 26.4
--- NOTE | 2024-07-01 08:34 | A.OFFPC_ITS ---
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: Not Required per policy Accompanied by: Self / Same As Patient Allergies amoxicillin Allergy (Unknown, Verified 07/01/24 08:34) Unknown shellfish derived Adverse Reaction (Intermediate, Verified 07/01/24 08:34) VOMITING Medication List - Last Reconciled 07/01/24 by Bandar Coronado MD aspirin (Adult Aspirin Regimen) 81 mg PO DAILY carvedilol 6.25 mg PO Q12H evolocumab (Repatha SureClick) 140 mg subcut Q2W hydroxyzine pamoate 25 mg PO QID PRN loperamide (Anti-Diarrheal (loperamide)) 2 mg PO Q6H PRN omeprazole 20 mg PO DAILY rosuvastatin 10 mg PO DAILY Tobacco use date assessed: 05/22/24 Fall risk assessment: No Falls in past year Last assessed Fall Risk: 07/01/24 Dental Screening Dental Screen Date: 02/21/24 HPI Neck pain HPI Details neck stiffness chills and cough for a week; no history of tick or insect bites PFSH Medical History Screening for hyperlipidemia Screening for diabetes mellitus Renal cyst Rectal bleeding Other obstructive and reflux uropathy Benign prostatic hyperplasia with lower urinary tract symptoms Kidney stone Genetic testing Family history of pancreatic cancer History of colon cancer Surgical History Stented coronary artery History of colon resection (~12/14/14) History of colonoscopy (~10/18/14) Family History Father History of heart disease Mother History of colon cancer Brother History of liver cancer History of pancreatic cancer Sister History of lung cancer Daughter History of breast cancer Social History Housing: House Alcohol intake: current Alcohol intake frequency: a few times a month Patient Tobacco Use Status: Never used Tobacco e-Cigarette/Vaping Use: Never Used Second Hand Smoke Exposure: No service: No Current occupational status: retired Cognitive needs: No Hearing needs: No Vision needs: Yes (reading) Questionnaire Thrive Questionnaire Date Thrive assessed: 02/21/24 FELICIA-7 AMB Questionnaire FELICIA-7 Date FELICIA - 7 assessed: 02/21/24 Source: Developed by Drs. Hansel Daniel, Rosemary Rodriguez, Ferdinand Tineo and colleagues, with an educational mallika from [employer]. Review of Systems Const Denies weight loss Card Denies chest pain, Denies syncope, Denies irregular heart rhythm and Denies dyspnea Resp Denies chest congestion, Denies cough and Denies dyspnea GI Denies abdominal pain, Denies change in stool character, Denies nausea and Denies vomiting Musc Denies deformity and Denies joint swelling Neuro Denies syncope Physical exam (Primary Care) Vital Signs: Last Vital Signs Pulse 87 07/01/24 08:34 BP 104/70 07/01/24 08:34 Pulse Ox 98 07/01/24 08:34 Oxygen Delivery Method Room Air 07/01/24 08:34 BMI result Body Mass Index 26.4 Tobacco/Smoking Status: Tobacco use Status Tobacco use date assessed 05/22/24 07/01/24 08:39 Patient Tobacco Use Status Never used Tobacco 07/01/24 08:39 e-Cigarette/Vaping Use Never Used 07/01/24 08:39 Thrive Assessment: Date of Thrive Assessment Date Thrive assessed 02/21/24 07/01/24 08:39 Const General: cooperative, comfortable, no acute distress and alert Neck Neck: Yes no lymphadenopathy Thyroid: Thyroid normal Resp Effort & Inspection: normal respiratory effort Auscultation: clear to auscultation bilaterally Percussion: percussion normal Cardio Jugular venous distension: no JVD Palpation: normal PMI Rate: regular rate Rhythm: regular rhythm Heart sounds: S1 normal heart sound present and S2 normal heart sound present GI Inspection: Yes normal to inspection Palpation (GI): No hepatosplenomegaly present Skin General skin exam: no rashes or lesions noted Extrem General: Yes no clubbing, cyanosis or edema Assessment and Plan Assessment & Plan (1) Viral syndrome: Code(s): B34.9 - Viral infection, unspecified Plan: labs; Orders: Orders Complete Blood Count Auto Diff Today Z13.0 - Encounter for screening for diseases of the blood and blood-forming organs and certain disorders involving the immune mechanism Babesia IgG/IgM Today R50.9 - Fever, unspecified Lyme IgG/IgM w/reflex to WB Today W57.XXXA - Bitten or stung by nonvenomous insect and other nonvenomous arthropods, initial encounter Gloria Covid-19 Ag Today R50.9 - Fever, unspecified Ehrlichia Anaplasma Ab Panel Today R50.9 - Fever, unspecified Coding Level of Care Code Est Pt Level 3 (02047) Diagnoses Viral syndrome B34.9
== END 2024-07-01 08:55 | disposition home or self-care (01) ==
PROVIDERS: PCP Internal Medicine; Visit Provider Internal Medicine
DX: B34.9 Viral infection, unspecified (principal)
CPT/HCPCS: 99213

== ENCOUNTER 2024-07-01 09:00 | Outpatient (REF) | payer MEDICARE, SELFPAY ==
[2023-05-06 08:19] VITALS: BP 120/60; BP 120/65; BMI 27.3
[2024-07-01 09:29] LABS: MANUAL DIFF FLAG NO
[2024-07-01 09:53] LABS: Basophils Percent Auto 0.5 % (0-2); Eosinophils Absolute Auto 0.2 X10*3/uL (0.0-0.4); Eosinophils Percent Auto 2.1 % (0-4); Hematocrit 49.1 % (42.0-52.0); Hemoglobin 16.5 g/dl (14.0-18.0); Imm Gran Abs Auto 0.02 X10*3/uL (0.00-0.03); Imm Gran Pct Auto 0.3 % (0.0-0.4); Lymphocytes Absolute Auto 1.4 X10*3/uL (1.2-4.9); Lymphocytes Percent Auto 18.4 % (20-40); Mean Corpuscular HGB Conc 33.6 g/dl (31.0-36.0); Mean Corpuscular Hemoglobin 32.3 pg (27.0-33.0); Mean Corpuscular Volume 96.1 fL (80.0-98.0); Monocytes Absolute Auto 0.7 X10*3/uL (0.1-1.2); Monocytes Percent Auto 9.6 % (2-11); Neutrophils Absolute Auto 5.2 x10*3/uL (2.0-8.3); Neutrophils Percent Auto 69.1 % (45-73); Platelet Count 187 X10*3/uL (160-400); Red Blood Count 5.11 X10*6/uL (4.60-5.80); Red Cell Distribution Width 12.1 % (11.0-16.0); White Blood Count 7.5 X10*3/uL (4.8-10.8)
[2024-07-01 10:14] LABS: Influenza A PCR NEGATIVE (Negative); Influenza B PCR NEGATIVE (Negative); Resp Syncy Virus RNA Qual PCR NEGATIVE (Negative); SARS COV2 PCR INHOUSE NEGATIVE (Negative)
[2024-07-02 11:09] LABS: Lyme Abs Screen <0.90 index
[2024-07-07 15:33] LABS: Babesia IgG <1:64 titer (<1:64); Babesia IgM <1:20 titer (<1:20)
[2024-07-07 16:09] LABS: A. Phagocytophilum Ab IgG <1:64 (<1:64); A. Phagocytophilum Ab IgM <1:20 (<1:20); E. Chaffeensis Ab IgG <1:64 (<1:64); E. Chaffeensis Ab IgM <1:20 (<1:20)
== END 2024-07-01 09:01 | disposition home or self-care (01) ==
LOC: HO.LAB 09:00
PROVIDERS: PCP Internal Medicine; Visit Provider Internal Medicine
DX: T14.8XXA Other injury of unspecified body region, initial encounter (principal); W57.XXXA Bitten or stung by nonvenomous insect and other nonvenomous arthropods, initial encounter; R50.9 Fever, unspecified; Z13.0 Encounter for screening for diseases of the blood and blood-forming organs and certain disorders involving the immune mechanism; R09.89 Other specified symptoms and signs involving the circulatory and respiratory systems; Y93.9 Activity, unspecified; Y92.9 Unspecified place or not applicable; Y99.9 Unspecified external cause status
CPT/HCPCS: 0241U; 36415; 85025; 86617; 86618; 86666; 86753

== ENCOUNTER 2024-07-27 08:50 | Outpatient (AMB) | payer MEDICARE, SELFPAY ==
[2023-05-06 08:19] VITALS: BP 120/60; BP 120/65; BMI 27.3
[2024-07-27 08:53] VITALS: BP 128/72; PULSE 68; O2SAT 97; BMI 27.1
--- NOTE | 2024-07-27 08:53 | AM.OFFVISMDC ---
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 Required: No Accompanied by: Self / Same As Patient Allergies amoxicillin Allergy (Unknown, Verified 07/27/24 08:55) Unknown shellfish derived Adverse Reaction (Intermediate, Verified 07/27/24 08:55) VOMITING Medication List - Last Reconciled 07/27/24 by Bandar Coronado MD aspirin (Adult Aspirin Regimen) 81 mg PO DAILY carvedilol 6.25 mg PO Q12H evolocumab (Repatha SureClick) 140 mg subcut Q2W hydroxyzine pamoate 25 mg PO QID PRN loperamide (Anti-Diarrheal (loperamide)) 2 mg PO Q6H PRN omeprazole 20 mg PO DAILY rosuvastatin 10 mg PO DAILY HPI Swv [id number] HPI Details hypertension, CAD stable; doing well PFSH Medical History Screening for hyperlipidemia Screening for diabetes mellitus Renal cyst Rectal bleeding Other obstructive and reflux uropathy Benign prostatic hyperplasia with lower urinary tract symptoms Kidney stone Genetic testing Family history of pancreatic cancer History of colon cancer Surgical History Stented coronary artery History of colon resection (~12/14/14) History of colonoscopy (~10/18/14) Family History Father History of heart disease Mother History of colon cancer Brother History of liver cancer History of pancreatic cancer Sister History of lung cancer Daughter History of breast cancer Social History Housing: House Alcohol intake: current Alcohol intake frequency: a few times a month Patient Tobacco Use Status: Never used Tobacco e-Cigarette/Vaping Use: Never Used Second Hand Smoke Exposure: No service: No Current occupational status: retired Cognitive needs: No Hearing needs: No Vision needs: Yes (reading) Questionnaire Medicare Wellness Checkup [age] What gender do you identify with?: male During the past 4 weeks, how much have you been bothered by emotional problems such as feeling anxious, depressed, irritable, sad or downhearted, and blue?: not at all During the past 4 weeks, has your physical & emotional health limited your social activities with family, friends, neighbors, or groups?: not at all During the past 4 weeks, how much bodily pain have you generally had?: moderate pain During the past 4 weeks, was someone available to help you if you needed & wanted help?: yes, as much as I wanted During the past 4 weeks, what was the hardest physical activity you could do for at least 2 minutes?: very heavy Can you get to places out of walking distance without help? (For eg., can you travel alone on buses, taxis or drive your car?): Yes Can you go shopping for groceries or clothes without someone's help?: Yes Can you prepare your own meals?: Yes Can you do your housework without help?: Yes Because of any health problems, do you need the help of another person with your personal care needs such as eating, bathing, dressing or getting around the house?: No Can you handle your own money without help?: Yes During the past 4 weeks, how would you rate your health in general?: very good During the past 4 weeks how have things been going for you?: very well; could hardly better Are you having difficulties driving your car?: no Do you always fasten your seat belt when you are in a car?: yes, usually During past 4 weeks, have you been bothered by the following: never: Falling or dizzy when standing up, Sexual problems?, Trouble eating well?, Teeth or denture problems? and Problems using the telephone? and sometimes: Tiredness or fatigue? Have you fallen 2 or more times in the past year?: No Are you afraid of falling?: No Are you a smoker?: no During the past 4 weeks, how many drinks of wine, beer, or other alcoholic beverages did you have?: 2-5 drinks per week Do you exercise for about 20 minutes 3 or more times a week?: yes, some of the time Have you been given information to help with the following?: no: Hazards in your house that might hurt you? and no: Keeping track of your medications? How often do you have trouble taking medicines the way you have been told to take them?: I always take medicine as prescribed How confident are you that you can control & manage most of your health problems?: very confident What is your race?: White Mini Mental State Exam (MMSE) Orientation What is the (year) (season) (date) (day) (month)?: year, season, date, day and month Where are we (state) (county) (town or city) (hospital) (floor)?: state, county, town or city, hospital/clinic and floor Registration Name of 3 unrelated objects clearly and slowly, then ask patient to repeat all 3 of them. (1st repeat determines score. Make sure they can repeat all three): object 1, object 2 and object 3 Recall Ask patient to repeat the 3 items from question #3.: object 1 Score Score: 14 Activity of Daily Living Bathing - sponge bath, tub bath or shower: receives no assistance (gets in/out by self, if usual bathing means Dressing - getting clothes from closets & drawers, including inner/outer garments & fasteners.: gets clothes & gets completely dressed without help Toileting - going to the 'toilet room' for urine/bowel elimination & cleaning self/arranging clothes: goes to toilet room, cleans self, arranges clothes without help Transfer: moves in & out of bed and chair without help (may use support object) Continence: controls urination/bowel movements completely by self Feeding: feeds self without help Total Score: 0 Information obtained from: patient Using telephone: independent Traveling: independent Shopping: independent Preparing meals: independent Housework: independent Taking medicine: independent Managing money: independent PHQ-9 Over the last 2 weeks, how often have you been bothered by any of the following problems? 1. Little interest or pleasure in doing things: not at all 2. Feeling down, depressed, or hopeless: not at all 3. Trouble falling or staying asleep, or sleeping too much: not at all 4. Feeling tired or having little energy: not at all 5. Poor appetite or overeating: not at all 6. Feeling bad about yourself - or that you are a failure or have let yourself or your family down: not at all 7. Trouble concentrating on things, such as reading the newspaper or watching television: not at all 8. Moving or speaking so slowly that other people could have noticed. Or the opposite - being so fidgety or restless that you have been moving around a lot more than usual: not at all 9. Thoughts that you would be better off or of hurting yourself in some way: not at all Total score: 0 Depression Screening Interpretation: Negative Depression Screening Done: Yes 92310 - PHQ-9 Billing: Yes Source: Developed by Drs. Hansel Daniel, Rosemary Rodriguez, Ferdinand Tineo and colleagues, with an educational mallika from [email or web address]. Review of Systems Const Denies chills, Denies fatigue, Denies headache(s) and Denies weight loss Eyes Denies change in vision, Denies diplopia and Denies eye pain ENT Reports Normal hearing present, Denies vertigo, Denies dizziness, Denies headache(s) and Denies nasal discharge Card Denies chest pain, Denies rapid heart rate and Denies dyspnea on exertion Resp Denies chest congestion, Denies cough, Denies pain with cough and Denies dyspnea on exertion GI Denies abdominal pain, Denies hematochezia and Denies change in bowel habits Musc Denies myalgias, Denies arthralgias and Denies joint swelling Skin/Breast Denies lesions and Denies unusual bruising Neuro Reports Normal hearing present, Denies vertigo, Denies dizziness, Denies headache(s) and Denies focal weakness Endo Denies fatigue Physical Exam Vital Signs: Last Vital Signs Pulse 68 07/27/24 08:53 BP 128/72 07/27/24 08:53 Pulse Ox 97 07/27/24 08:53 Oxygen Delivery Method Room Air 07/27/24 08:53 BMI result Body Mass Index 27.1 Neuro Cranial nerves: Yes Normal hearing present Assessment & Plan Assessment & Plan (1) Encounter for subsequent annual wellness visit (AWV) in Medicare patient: Code(s): Z00.00 - Encounter for general adult medical examination without abnormal findings Plan: all forms given to patient, rhomberg and whisper tests nl (2) Hypertension: Code(s): I10 - Essential (primary) hypertension Plan: stable; same rx (3) CAD (coronary atherosclerotic disease): Code(s): I25.10 - Atherosclerotic heart disease of [place] coronary artery without angina pectoris Plan: as per cardiology Orders: Referrals Ear/Nose/Throat Referral H61.20 - Impacted cerumen, unspecified ear Quality Reporting (2019) Depression/Bipolar (159/160/161/177) PHQ-9: Total score: 0 Coding Level of Care Code Medicare Subsequent (G0439) Diagnoses Encounter for subsequent annual wellness visit (AWV) in Medicare patient Z00.00 Hypertension I10 CAD (coronary atherosclerotic disease) I25.10 CPT Codes Advance Care Planning - Advance Care Planning discussion: On file, no changes ([id number]) Advance Care Planning Advance Care Planning discussion: On file, no changes Forms completed: Health Care Proxy
== END 2024-07-27 09:23 | disposition home or self-care (01) ==
PROVIDERS: PCP Internal Medicine; Visit Provider Internal Medicine
DX: Z00.00 Encounter for general adult medical examination without abnormal findings (principal); I10 Essential (primary) hypertension; I25.10 Atherosclerotic heart disease of native coronary artery without angina pectoris
CPT/HCPCS: 1123F; G0439

== ENCOUNTER 2025-03-16 11:11 | Outpatient (AMB) | payer MEDICARE, SELFPAY ==
[2023-05-06 08:19] VITALS: BP 120/60; BP 120/65; BMI 27.3
--- NOTE | 2025-03-16 11:48 | A.OFFPC_ITS ---
Vital Signs 03/16/25 12:02 Height 5 ft 11 in Weight 194 lb BMI 27.1 BP 120/80 Blood Pressure Location Lt brachial Position Sitting Pulse 57 Pulse Source Pulse Oximeter Temp 97.3 F Temp Source Temporal Artery Scan Pulse Oximetry (%) 95 Oxygen Delivery Method Room Air Intake Visit Reasons: BON[facility] Dr Coronado Assistant Chief Train Dispatcher Required: No Accompanied by: Self / Same As Patient Allergies amoxicillin Allergy (Unknown, Verified 03/16/25 12:26) Unknown shellfish derived Adverse Reaction (Intermediate, Verified 03/16/25 12:26) VOMITING Medication List - Last Reconciled 03/16/25 by Hakeem Noble PA-C aspirin (Adult Aspirin Regimen) 81 mg PO DAILY carvedilol 6.25 mg PO Q12H evolocumab (Repatha SureClick) 140 mg subcut Q2W loperamide (Anti-Diarrheal (loperamide)) 2 mg PO Q6H PRN omeprazole 20 mg PO DAILY rosuvastatin 10 mg PO DAILY Tobacco use date assessed: 03/16/25 Fall risk assessment: No Falls in past year Last assessed Fall Risk: 03/16/25 Dental Screening Dental Screen Date: 03/16/25 Did you have a dental visit in the last 12 months?: Yes Did you have a dental problem in the last 6 months where you did not have access to dental care?: No Was dental information given to patient?: Patient has dentist HPI BONY Dr Coronado HPI Details Patient is a 74-year-old male here today for a transfer of care visit. Previous PCP was Dr. Coronado. Patient has a past medical history significant for coronary artery disease, paroxysmal AFib, hypertension hyperlipidemia. .. Coronary artery disease: Does have 3 coronary artery stents. Followed by [facility]. Continues on statin therapy along with Repatha with goal LDL optimally below 70. He otherwise denies any chest discomfort, dizziness or heart palpitations. Blood pressure seems to be well controlled with current antihypertensive med [facility] Medical History (Updated 03/16/25 @ 14:55 by Hakeem Noble PA-C) Painless jaundice Screening for hyperlipidemia Screening for diabetes mellitus Renal cyst Rectal bleeding Other obstructive and reflux uropathy Benign prostatic hyperplasia with lower urinary tract symptoms Genetic testing Family history of pancreatic cancer History of colon cancer Surgical History Stented coronary artery History of colon resection (~12/14/14) History of colonoscopy (~10/18/14) Family History Father History of heart disease Mother History of colon cancer Brother History of liver cancer History of pancreatic cancer Sister History of lung cancer Daughter History of breast cancer Social History (Updated 03/16/25 @ 12:26 by Hakeem Noble PA-C) Housing: House Alcohol intake: current Alcohol intake frequency: a few times a month Patient Tobacco Use Status: Never used Tobacco e-Cigarette/Vaping Use: Never Used Second Hand Smoke Exposure: No service: No Current occupational status: retired Cognitive needs: No Hearing needs: No Vision needs: Yes (reading) Questionnaire PHQ-9 Over the last 2 weeks, how often have you been bothered by any of the following problems? 1. Little interest or pleasure in doing things: not at all 2. Feeling down, depressed, or hopeless: not at all 3. Trouble falling or staying asleep, or sleeping too much: not at all 4. Feeling tired or having little energy: not at all 5. Poor appetite or overeating: not at all 6. Feeling bad about yourself - or that you are a failure or have let yourself or your family down: not at all 7. Trouble concentrating on things, such as reading the newspaper or watching television: not at all 8. Moving or speaking so slowly that other people could have noticed. Or the opposite - being so fidgety or restless that you have been moving around a lot more than usual: not at all 9. Thoughts that you would be better off or of hurting yourself in some way: not at all Total score: 0 Depression Screening Interpretation: Negative Depression Screening Done: Yes 13209 - PHQ-9 Billing: Yes Source: Developed by Drs. Hansel Daniel, Rosemary Rodriguez, Ferdinand Tineo and colleagues, with an educational mallika from [email or web address]. Thrive Questionnaire Date Thrive assessed: 03/16/25 I am a: Patient What is your living situation today?: I have a steady place to live Within the past 12 months, did the food you bought not last and you didn't have the money to get more?: Never true Within the past 12 months, did you worry whether your food would run out before you got money to buy more?: Never true Do you have trouble paying for medicines?: No Do you have trouble getting transportation to medical appointments?: No Do you have trouble paying your heating and electricity bill?: No Do you have trouble taking care of your child, family member or friend?: No Do you have trouble with day-to-day activities such as bathing, preparing meals, shopping, managing finances, etc.?: No Are you currently unemployed and looking for a job?: No Are you interested in more education?: No Please select the resources that you would like help with: None Currently or been in a relationship where the following occur: No concerns reported THRIVE Score: 0 AUDIT C Alcohol Use Questionnaire (AUDIT-C) 1. How often do you have a drink containing alcohol?: Monthly or less 2. How many drinks containing alcohol do you have on a typical day when you are drinking?: 1 or 2 3. How often do you have six or more drinks on one occasion?: Never Total Score: 1 Score Reviewed/Action Taken: No FELICIA-7 AMB Questionnaire FELICIA-7 Date FELICIA - 7 assessed: 03/16/25 Feeling nervous, anxious, or on edge: 0 = Not at all Not being able to stop or control worryin = Not at all Worrying too much about different things: 0 = Not at all Trouble relaxin = Not at all Being so restless that it is hard to sit still: 0 = Not at all Becoming easily annoyed or irritable: 0 = Not at all Feeling afraid as if something awful might happen: 0 = Not at all Total FELICAI-7 score (0-4 normal; 5-9 mild; 10-14 moderate; 15-21 severe): 0 Source: Developed by Drs. Hansel Daniel, Rosemary Rodriguez, Ferdinand Tineo and colleagues, with an educational mallika from [email or web address]. FELICIA-7 Assessment Billing FELICIA-7 Assessment Tool: FELICIA-7 Assessment 43485 Review of Systems Const Denies headache(s) Eyes Denies loss of vision ENT Denies vertigo, Denies dizziness, Denies headache(s) and Denies sore throat Card Denies chest pain, Denies leg edema and Denies lightheadedness Resp Denies cough, Denies hemoptysis and Denies wheezing GI Denies abdominal pain, Denies melena, Denies constipation, Denies diarrhea and Denies vomiting Denies dysuria, Denies urinary frequency and Denies urinary urgency Musc Denies arthralgias, Denies joint swelling, Denies numbness and Denies tingling Neuro Denies Abnormal speech present, Denies behavioral changes, Denies vertigo, Denies dizziness, Denies headache(s), Denies loss of vision, Denies memory loss, Denies numbness and Denies tingling Psych Denies anxiety, Denies behavioral changes, Denies depression, Denies memory loss and Denies panic attacks Jem/Lymph Denies easy bleeding and Denies easy bruising Aller/Immun Denies wheezing Physical exam (Primary Care) Vital Signs: Last Vital Signs Temp 97.3 F 03/16/25 12:02 Pulse 57 03/16/25 12:02 BP 120/80 03/16/25 12:02 Pulse Ox 95 03/16/25 12:02 Oxygen Delivery Method Room Air 03/16/25 12:02 BMI result Body Mass Index 27.1 Tobacco/Smoking Status: Tobacco use Status Tobacco use date assessed 03/16/25 03/16/25 12:06 Patient Tobacco Use Status Never used Tobacco 03/16/25 12:26 e-Cigarette/Vaping Use Never Used 03/16/25 12:26 PHQ-9: PHQ-9 Score PHQ-9: Total score 0 03/16/25 12:21 Depression Screening Interpretation: Negative Thrive Assessment: Date of Thrive Assessment Date Thrive assessed 03/16/25 03/16/25 11:51 Currently or been in a relationship where the following occur: No concerns reported Const General: healthy appearing, no acute distress, alert and awake Nutritional Appearance: well nourished Orientation/consciousness: oriented to person, oriented to place and oriented to time HENMT Ears: TM's normal bilaterally General nose exam: Normal nasal mucous membranes and turbinates present Eyes Conjunctivae: conjunctivae normal Sclerae: sclerae normal Pupils: Equal, round and reactive pupils present Neck Neck: Yes no lymphadenopathy and Yes no JVD Thyroid: Thyroid normal Carotids: no bruits Resp Effort & Inspection: normal respiratory effort and not tachypneic Auscultation: no crackles, no rales, no rhonchi and no wheezes Cardio Rate: regular rate Rhythm: regular rhythm Heart sounds: no murmurs and normal S1 and S2 GI Palpation (GI): Soft to palpation, nontender, no hepatomegaly and no splenomegaly Auscultation: normal bowel sounds Skin General skin exam: no rashes or lesions noted and dry skin Neuro General: oriented to person, oriented to place and oriented to time Cranial nerves: Yes Equal, round and reactive pupils present Speech: No Abnormal speech present Gait exam (Neuro): Normal gait present Motor exam (neuro): no tremor noted Extrem Right upper extremity: full ROM Left upper extremity: full ROM Right lower extremity: full ROM; no edema Left lower extremity: full ROM; no edema Psych Mental Status: mental status grossly normal Speech and movement: Normal speech and movement present Affect: normal affect Attitude: cooperative Thought process: Normal thought process present Coding Level of Care Code Est Pt Level 4 (86117) Diagnoses Atherosclerosis of [place] coronary artery of [place] heart without angina pectoris I25.10 Coronary Disease-Associated Artery/Lesion type: [place] artery [place] vs. transplanted heart: [place] heart Associated angina: without angina Primary hypertension I10 Hypertension type: primary hypertension Paroxysmal A-fib I48.0 Additional Codes FELICIA-7 Assessment Billing - FELICIA-7 Assessment Tool: FELICIA-7 Assessment 42501 ([id number]) PHQ-9 - 31687 - PHQ-9 Billing: Yes ([id number]) Assessment & Plan Assessment & Plan (1) CAD (coronary atherosclerotic disease): Code(s): I25.10 - Atherosclerotic heart disease of [place] coronary artery without angina pectoris Category: Medical Qualifiers: Coronary Disease-Associated Artery/Lesion type: [place] artery [place] vs. transplanted heart: [place] heart Associated angina: without angina Qualified Code(s): I25.10 - Atherosclerotic heart disease of [place] coronary artery without angina pectoris Plan: Patient followed by [facility], continues on statin therapy and Repatha. Goal LDL to be below 70. He otherwise denies any chest pain, shortness of breath or palpitations. Continues on carvedilol with good control of his blood pressure. (2) Hypertension: Code(s): I10 - Essential (primary) hypertension Category: Medical Qualifiers: Hypertension type: primary hypertension Qualified Code(s): I10 - Essential (primary) hypertension Plan: Patient's blood pressure today acceptable.. Patient's goal blood pressure to be below 140/90 (3) Paroxysmal A-fib: Code(s): I48.0 - Paroxysmal atrial fibrillation Category: Medical Plan: Was noted to have paroxysmal AFib in the setting of cardiac pericarditis. Not on any anticoagulation at this time Orders: Orders Lipid Panel Today I25.10 - Atherosclerotic heart disease of [place] coronary artery without angina pectoris Comprehensive [place]. Panel Fast Today I25.10 - Atherosclerotic heart disease of [place] coronary artery without angina pectoris Microalbumin, Random (w Creat) Today I10 - Essential (primary) hypertension Complete Blood Count no Diff Today I25.10 - Atherosclerotic heart disease of [place] coronary artery without angina pectoris Prostate Specific Antigen Scr Today I10 - Essential (primary) hypertension, Z12.5 - Encounter for screening for malignant neoplasm of prostate Medications: Discontinued hydroxyzine pamoate Discontinued Reason: Doctor's Order 25 mg PO QID PRN 60 caps 3RF itching nirmatrelvir-ritonavir 300 mg (150 mg x 2)-100 mg (Paxlovid) Discontinued Reason: Doctor's Order take TWO 150 mg tablets of nirmatrelvir with ONE 100 mg tablet of ritonavir twice daily for 5 days orally; 30 tabs 0RF
[2025-03-16 12:02] VITALS: BP 120/80; PULSE 57; TEMP 36.3; O2SAT 95; BMI 27.1
--- OUTSIDE RECORDS SUMMARY | 2025-03-16 13:49 | XMS_ITS | Patient Health Record ---
Author Organization Hansel Hussein III, MD Address [address] [place] [address] Care Team Providers Care Materials Planner/Production Planner Name Role Phone Bandar Coronado MD Primary Care Provider Unavaila Hansel Rodriguez Unavailable [phone] WILSON STARKS MD Unavailable Unavailable Allergies Allergen (clinical drug ingredient) Drug/Non Drug Allergy documented on EMR Reaction Allergy Type Onset Date Status Shellfish (FN) Shellfish (uncoded) Unknown Allergy Active Reason For Referral No Information Medications Medication SIG (Take, Route, Fr equency, Duration) Notes Start Date End Date Status Omeprazole 20 MG 1 capsule Orally Once a day Active Naproxen 500 MG 1 tablet as needed O rally every 12 hrs Active Immunizations Vaccine Route Administration Date Status Comme nts Td (adult) Unknown 08/28/2017 Administered PPV 23 Unknown 08/28/2017 Administered SHINGRIX Unknown 01/03/2022 Administered SHINGRIX Unknown 10/19/2021 Administered Social History Tobacco Use: Social History Observation Description Date Details (start date - stop date) Never Smoker NA - NA Tobacco Use/Smoking Question Answer Notes Patient is a nonsmoker Additional Findings: Tobacco Non-User Aggressive non-smoker Alcohol Screen Question Answer Notes Did you have a drink containing alcohol in the p ast year? No Points 0 Interpretation Negative Problems Problem Type SNOMED Code ICD Code Onset Dates Problem Status W/U Status Risk Notes Problem 837330032 Overweight (E66.3) Active confirmed His body mass index is 27 and I have recommended weight loss through exercise and diet restricted in fat calories in sodium. Problem 910340461 GERD (gastroesophageal reflux disease) (K21.9) Active confirmed His reflexes well controlled with nsog-ltn-ogcob er medication. 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 Problem 27751507 Lumbosacral spondylosis without myelopathy (M47.817) Active confirmed His back pain is mild and has not been troubling him lately. No treatment is necessary. 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 His last colonoscopy was normal. He is feeling healthy and well and surveillance will continue. Plan Of Treatment Pending Test Test Name Order Date PROFILE, RANDOM (COMPREHENSIVE METABOLIC ) 11/07/2017 PROFILE, RANDOM (COMPREHENSIVE METABOLIC ) 08/28/2018 PROFILE, RANDOM (COMPREHENSIVE METABOLIC ) 02/24/2018 CEA 11/07/2017 CEA 08/28/2018 CEA 02/24/2018 CBC w DIFF 02/24/2018 CBC w DIFF 11/07/2017 CBC w DIFF 08/28/2018 Insurance Providers Payer Name Payer Address Payer Phone Subscriber Number Group Number Insured Name Patient Relationship to Insured Coverage Start Date Coverage End Date MEDICARE NGS [address] [place] [address] [id number] Abel Walters Self - patient is the insured [facility] [address] [place], [place] [id number] [phone] [id number] Abel Walters Self - patient is the insured Medical (General) History Medical History History ICD Code GERD (gastroesophageal reflux disease) 5 30.81 Colon polyps 211.3 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 12/14/2014 sinus procedure [address] Starks 04/2020
--- OUTSIDE RECORDS SUMMARY | 2025-03-16 13:49 | XMS_ITS | Data Portability ---
Author Organization [facility] Address [address] [place] [address] Care Team Providers Care Canal Equipment Mechanic Name Role Phone POPPY MEJIA Primary Care Provider Assessment No assessment recorded. Plan of Treatment Reminders Order Date Submit Date Provider Last Modified By Organization Details Last Modified Time Details Appointments None recorded. Lab None recorded. Referral None recorded. Procedures None recorded. Surgeries None recorded. Imaging audiogram 2023 [facility], [address], [address], [place], [address], 13:21:58 tympanogram 2023 024 [facility], [address], [address], [place], [address], 13:21:49 Medication Orders None recorded. Patient TargetsNo targets recorded. Patient InstructionsNo instructions recorded. Reason for Referral None Reported. Results Created Date Observation Date Name Description Value Unit Range Abnormal Flag Note LastModifiedBy Organization Detail LastModifiedTime 02/03/2002/03/2024 audio gram No observ ation record ed. [email or web address] [address], [place], [address], 02/03/2024 13:21:58 02/03/20 24 02/03/2024 tympa cosmera m No observ ation record ed. [place] [address] [facility] [address], [place], [address], 02/03/2024 13:21:49 02/03/20 24 audio gram No observ ation record ed. [email or web address] Not Available 2023 11:35:20 02/03/20 24 tympa nogra m No observ ation record ed. [email or web address] Not Available 2023 13:22:40 Result Notes None recorded. Problems Name Problem SNOMED Code Status Onset Date Resolution Date Notes Provider Name and Address Organization Details Recorded Time Malignant tumor of colon 893928359 Completed 202302/03/2024 Kayleen villarreal [place] [facility] 10:53:45 Problem Notes None recorded. Procedures Surgical History Date Name Laterality Status Provider Name and Address Organization Details Recorded Time 2 procedure on heart completed Kayleen LOMEL[facility] 02/03/2024 10:54:15 6 procedure on colon completed Kayleen Pires [facility] 02/03/2024 10:54:06 Imaging Results Imaging Date Name Status [facility]Modified by [facility] Details LastModified Time 02/03/2024 audiogram completed [place] [id number] [facility] [address], [place], [address], 02/03/2024 13:21:58 02/03/2024 tympanogram completed [place] [address] [facility] [address], [place], [address], 02/03/2024 13:21:49 02/03/2024 audiogram completed [place] [address] Information no t available 02/03/2024 11:35:20 02/03/2024 tympanogram completed [place] [address] Information n ot available 02/03/2024 13:22:40 Procedure Notes None recorded. Medical Equipment None Reported. Allergies Allergen ID Allergen Name Allergen Category Reaction Reaction Severity Criticality Documentation Date Start Date Code Code System Note Provider Name and Address Organization Details Recorded Time 8308 Product containin g penicilli n (product) medicatio n Not available Not available Not available 02/03/2024 07107 8001 SNOMED Kayleen Pires [place], [place] - [facility] 11:13:30 Medications Name Sig Start Date Stop Date Status Note LastModified by Organization Details LastModified Time carvedilol 6.25 mg tablet TAKE 1 TABLET BY MOUTH EVERY 12 HOURS MUST ADMINISTER WITH A MEAL/FOOD active Not Available Not Available No t Available omeprazole 20 mg capsule,vicky yed release TAKE 1 CAPSULE BY MOUTH EVERY DAY active Not Available Not Available No t Available amoxicillin 875 mg-potassium clavulanate 125 mg tablet TAKE 1 TABLET BY MOUTH EVERY 12 HOURS FOR 10 DAYS active Not Available Not Available Not Available rosuvastatin 10 mg tablet TAKE 1 TABLET BY MOUTH DAILY active Not Available Not Available Not Available rosuvastatin 40 mg tablet TAKE 1 TABLET BY MOUTH DAILY active Not Available Not Available Not Available Praluent Pen 75 mg/mL subcutaneous pen injector INJECT 75MG SUBCUTANEOU SLY EVERY 2 WEEKS active Not Available Not Available No t Available Vitals None Recorded Social History None recorded. Functional Status None recorded. Mental Status None recorded. Family History Nothing Reported. Medical History No medical history recorded. Past Encounters Encounter ID Performer Location Encounter Start Date Encounter Closed Date Diagnosis/Indication Diagnosis SNOMED-CT Code Diagnosis ICD10 Code Diagnosis Note [id number] Carlos mcgee MD [facility] [address] [place] [address],[address] [place] [address] 02/03/2024 10:24:21 02/03/2024 11:46:21 Impacted cerumen in left ear 5800159085 120853 H61.22 Removed today Sensorineu ral hearing loss of bilateral ears 722390590 H90.3 Tymps WNL AUAudio - WNL sloping to SNHL AUCleared for hearing aids Bilateral disorder of ears 3153684777 175617 H93.8X3 Reassured no evidence of fluid or infection Health Concerns Section Related Observation LastModified by Organization Detai ls LastModified Time None Recorded Concern Status LastModified by Organization Details LastModified Time None Recorded Advance Directives Directive None Recorded Payers Encounter Date Sequence Insurance Name Policy Number Policy Resendiz Covered Member ID Resendiz Member ID Guarantor Name 02/03/2024 1 [place] ([place] Abel Guzman [id number] Abel Guzman Notes Date Note Type Note Provider Name and Address Organization Details Recorded Time 02/03/2024 text/html Patient complain s of hearing loss. Went to [facility] 1 week ago for hearing loss where his wax was removed and recommended ENT follow up.Denies ear pressure or pain.Notes the hearing loss to be more significant in the left ear and said he started to notice the hearing loss a couple of months ago. Reports it to be a pretty sudden experience.Patient is currently taking Amoxicillin [place] a [place] [address], [place], [address], [facility] 02/03/2024 11:41:45
== END 2025-03-16 12:32 | disposition home or self-care (01) ==
LOC: HO.HMCH 11:11
PROVIDERS: PCP Internal Medicine; Visit Provider Physician Assistant
DX: I25.10 Atherosclerotic heart disease of native coronary artery without angina pectoris (principal); I10 Essential (primary) hypertension; I48.0 Paroxysmal atrial fibrillation

== ENCOUNTER → 2025-03-16 11:11 | Outpatient (BNVA) | payer MEDICARE, SELFPAY ==
[2023-05-06 08:19] VITALS: BP 120/60; BP 120/65; BMI 27.3
== END ==
PROVIDERS: PCP Internal Medicine; Visit Provider Physician Assistant
DX: I25.10 Atherosclerotic heart disease of native coronary artery without angina pectoris (principal); I10 Essential (primary) hypertension; I48.0 Paroxysmal atrial fibrillation
CPT/HCPCS: 96127; 99212

== ENCOUNTER 2025-04-20 08:32 | Outpatient (REF) | payer MEDICARE, SELFPAY ==
[2023-05-06 08:19] VITALS: BP 120/60; BP 120/65; BMI 27.3
--- OUTSIDE RECORDS SUMMARY | 2025-04-20 08:45 | XMS_ITS | Patient Health Record ---
Author Organization [facility] Christopher mcgee [place] Address [address] [place] [address] Care Team Providers Care Study Director Name Role Phone Hakeem Noble Primary Care Provider Unavailab rayna Alexandrea Pollard Unavailable [phone] Allergies Allergen (clinical drug ingredient) Drug/Non Drug Allergy documented on EMR Reaction Allergy Type Onset Date Status Amoxicillin-Pot Clavulanate created liver infection Drug Allergy Active Penicillin reaction to Liver Drug Allergy Active Shellfish (FN) Shellfish-derived Products vomiting Drug Allergy Active Results Component Value Reference Range Notes X ray : Foot, left 3V Reviewed date:03/18/2025 06:33:16 PM Interpretation:See Examination above Performing Lab: Notes/Report: See Examination above Reason For Referral No Information Medications Medication SIG (Take, Route, Frequency, Duration) Notes Start Date End Date Status Tylenol Active Repatha 140 MG/ML 1 mL Subcutaneous 03/04/2025 Active Aspirin 81 MG 1 tablet Orally Once a day Active Medrol 4 MG as directed Orally d aily for 6 days 03/18/2025 Active Rosuvastatin Calcium 10 MG 1 tablet Orally Once a day Active Carvedilol 6.25 MG 1 tablet with food O rally Twice a day Active Omeprazole 20 MG 1 capsule 1/2 to 1 h our before morning meal Orally Once a day 03/04/2025 Active Social History Tobacco Use: Social History Observation Description Date Details (start date - stop date) Never Smoker NA - NA Tobacco use other than smoking: Question Answer Notes Are you an other tobacco user? 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 EXERCISES.pdf (PERONEAL TENDON INJURY REHAB. EXERCISES.pdf) 03/18/2025 Hypertrophy of bone, left ankle and foot (ICD-10 - M89.372) 03/18/2025 Bunionette of left foot (ICD-10 - M21.622) 03/18/2025 Metatarsalgia of left foot (ICD-10 - M77.42) Plan Of Treatment No Information Insurance Providers Payer Name Payer Address Payer Phone Subscriber Number Group Number Insured Name Patient Relationship to Insured Coverage Start Date Coverage End Date Medicare [employer] [address] [place] [address] [phone] [id number] Abel Guzman Self - patient is the insured [facility] [address] [place] [address] [phone] [id number] Abel Guzman Self - patient is the insured Medical (General) History Medical History History ICD Code Cancer covid-19 Headaches/Migraines Reflux ( GERD) Chicken pox Surgical History Surgery Date(Month/Year) colon resection 12/14/2014 Heart stent Implant 05/31/222 carpal tunnel surgery left 04/13/2014 trigger finger release right 11/11/2012
--- OUTSIDE RECORDS SUMMARY | 2025-04-20 08:45 | XMS_ITS ---
Author Organization [facility] Nubieber Address [address] [place] [address] Care Team Providers Care Circus Performer Name Role Phone Hakeem Noble Primary Care Provider Unavailab Alexandrea Navarrete Unavailable [phone] Allergies Allergen (clinical drug ingredient) Drug/Non Drug [...] above Performing Lab: Notes/Report: See Examination above REASON FOR VISIT Pcp-03/15/25, Foot pain Medications Medication SIG (Take, Route, Frequency, Duration) [...] Tobacco non-user Current no nsmoker Vital Signs Height [id number] in 03/18/2025 Weight 195 lbs 03/18/2025 BMI 27.19 kg/m2 03/18/2025 Blood pressure systolic 120 mm Hg 03/18/20 25 Blood pressure diastolic 70 mm Hg 025 Encounters Encounter Location Date Provider Diagnosis [facility] [place] [address] [place] [address] 03/18/2025 Alexandrea Pollard Pain in left foot M79.672 ; Peroneal [...] foot (ICD-10 - M77.42) Plan Of Treatment Medication Medication Name Sig Start Date Stop Date Notes Medrol 4 MG as directed Orally daily for 6 days 03/18/2025 Treatment Notes Assessment Notes Peroneal tendinitis of left lower extrem ity Patient Educated with: PERONEAL TENDON INJURY REHAB. EXERCISES.pdf (PERONEAL TENDON INJURY REHAB. EXERCISES.pdf) Next Appt Details Follow Up: 4 Weeks, Reason: Progress Notes * Abel WALTERS CDOB:[birth year] (74 yo M)Acc No.[id number]:03/18/2025 Progress Notes Patient:?Abel WALTERS Provider:?Alexandrea Pollard DPM :1950???Age:74 Y???Sex:Male Kwesi e:03/18/2025 Address:[address] [place], [place] [id number] Pcp:Hakeem Noble Subjective: * Chief Complaints: * ???Pcp-03/15/25Foot pain * HPI: ???Foot Pain:?Nature:?aching, pulling, tenderness, throbbing, weakness.?Location:?LEFT.?Duration:?, several months.?Onset:?, unknown, denies trauma.?Course:?worse.?Aggravated:?any pressure, standing, walking.?Treatments:?rest/alter normal daily activity, ice, medication ( tylenol ) has not helped.? * ROS:?General/Constitutional:?Nausea?denies.?Vomiting?denies.?Hunger Thirst?denies.?Loss appetite?denies.?Chills?denies.?Fatigue?denies.?Fever?denies.?Night Sweats?denies.?Unexplained weight loss?denies.?Unexplained weight gain?denies.?HEENTM:?Dentures?denies.?Dizziness?denies.?Glasses/contacts?denies.?Retinopathy?de nies.?Blurred/double vision?denies.?TMJ?denies.?Discharge/drainage?denies.?Implants?denies.?Sore throat?denies.?Dental implants?denies.?Hard of hearing ?denies.?Difficulty chewing/swallowing/speaking?denies.?Nose bleeds?denies.?Sore mouth?denies.?Respiratory:?On Oxygen?denies.?Pneumonia/pleurisy?denies.?Bronchitis?denies.?Emphysema?denies.?C oughing?denies.?Cough blood?denies.?Shortness of breath?denies.?Wheezing?denies.?Cardiovascular:?Pacemaker?denies.?MVP?denies.?WPW?denies.?CHF?denies.?Heart attack?admits.?Septal defect?denies.?Rapid beat?denies.?Chest pain ?denies.?Atrial Fib.?denies.?Murmur/Palpitations?denies.?Gastrointestinal:?Hemorrhoids?denies.?Stomach/Abdominal pain?denies.?Dark blood stool?denies.?Irritable bowel ?denies.?Constipation?denies.?Diarrhea?denies.?Hematology:?Swelling?denies.?Clots?denies.?Varicose Veins?denies.?Bruising?denies.?Bleeding problem?denies.?Genitourinary:?Blood urine?denies.?Frequent/Painfu/urination/bladder control?denies.?Kidney stones?admits.?Infection (UTI)?denies.?Nephropathy?denies.?sex trans dis (STD)?denies.?Prostate?denies.?Musculoskeletal:?Hammertoes?denies.?Bunions?denies.?Back Pain?denies.?Muscle Cramps/ Resting?denies.?Muscle cramps / walking?denies.?Generalized aches and pains?denies.?Weakness?denies.?Integ.:?Fry?denies.?Scars?denies.?Corns/calluses?denies.?Ingrown nails?denies.?Painful nails?denies.?Open Sores?denies.?Rashes?denies.?Neurologic:?Difficulty sleeping?denies.?Brain disorder?denies.?Numbness?denies.?Balance trouble?denies.?Confusion?denies.?Fainting/blackouts?denies.?Tingling?denies.?Tr emors?denies.? * Medical History:? * Surgical History:?colon rese ction 12/14/2014Heart stent Implant 2carpal tunnel surgery left 04/13/2014trigger finger release right 11/11/2012 * Hospitalization/Major Diagno stic Procedure:?Denies Past Hospitalization * Family History:?Mother: dece ased, diagnosed with Other malignant neoplasm of unspecified site.?Father: , diagnosed with Unspecified heart disease.?Siblings: diagnosed with Unspecified heart disease, Other malignant neoplasm of unspecified site.? * Social History:?Tobacco Use:?Tobacco use other than smoking?Are you an other tobacco user??No ?Tobacco Control (Standard)?Tobacco use:?Nonsmoker ?Additional Findings: Tobacco non-user?Current nonsmoker ???Drugs/Alcohol:?Drugs?Have you used drugs other than those for medical reasons in the past 12 months??No ???Miscellaneous:?Caffeine: yes, frequency: Tea And Coffee / 3 cups daily. ?Children: yes. ?Exercise: yes, Moderate. ?Marital status: . ?Occupation: Retired. * Medications:?TakingRepatha 1 40 MG/ML Solution Prefilled Syringe 1 mL Subcutaneous Tylenol Omeprazole 20 MG Capsule Delayed Release 1 capsule 1/2 to 1 hour before morning meal Orally Once a day Carvedilol 6.25 MG Tablet 1 tablet with food Orally Twice a day Rosuvastatin Calcium 10 MG Tablet 1 tablet Orally Once a day Aspirin 81 MG Tablet Chewable 1 tablet Orally Once a day Medication List reviewed and reconciled with the patientTaking Repatha 140 MG/ML Solution Prefilled Syringe 1 mL Subcutaneous Taking Tylenol Taking Omeprazole 20 MG Capsule Delayed Release 1 capsule 1/2 to 1 hour before morning meal Orally Once a day Taking Carvedilol 6.25 MG Tablet 1 tablet with food Orally Twice a day Taking Rosuvastatin Calcium 10 MG Tablet 1 tablet Orally Once a day Taking Aspirin 81 MG Tablet Chewable 1 tablet Orally Once a day Medication List reviewed and reconciled with the patient * Allergies:?Penicillin: react ion to LiverShellfish-derived Products: vomitingAmoxicillin-Pot Clavulanate: created liver infectionyes[Allergies Verified] Objective: * Vitals:?Ht: 7uz55wy, Wt:195, BMI:27.19, Shoe size: 10.5, BP:120/70mm Hg, Ht-cm: 180.34 cm, Wt-k.45 kg. * Examination: ???General Examination: ?GENERAL APPEARANCE:?Reveals a pleasant, alert, well nourished, well- developed, well hydrated individual, who demonstrates proper attention to hygiene/body habitus, and is in no acute distress, Pt serves as own historian for office visit today.?ORIENTED:?person, place, and time.?Neurological: ?SENSORY:?Neurological exam reveals intact sensorium, pain sensation normal, vibration sensation intact, pinprick sensation is normal in the lower extremities, Pt denies, anesthesia, burning, paresthesia, tingling, B/L.?TINEL'S COMPRESSION:?Negative tarsal tunnel, ekaterina pedis, and medial calcaneal nerves.?Orthopedic: ?MUSCLE STRENGTH:?5/5 all groups in a symmetrical fashion, B/L.?GAIT ABNORMALITY:?Supinated, B/L.?FOOT MORPHOLOGY:?, normal, B/L.?TAILOR'S BUNION:?Prominent 5th MTH/MPJ, LEFT, Enlarged, painful, prominent, inflamed 5th Metatarsal Base, LEFT.?DIGITAL DEFORMITIES:?Digital contracture, PIPJ, 2-5 B/L, incompl-reducible with WB, or to push-up test, no over, nor underlapping.?TENDONITIS:? Pain on palpation, inflammation, and fusiform swelling to, LEFT, Peroneal Complex at the insertion into the styloid precess, pain with ROM.?FOOTWEAR EVALUATION:?good condition.?Vascular: ?DP PULSES (B):?3/4, B/L.?PT PULSES (B):?3/4, B/L.?CAPILLARY FILL TIME:?immediate, all digits, B/L.?TROPHIC CONDITION-TEXTURE/ELASTICITY/TURGOR/HAIR GROWTH (B):?normal, B/L.?TEMPERTURE GRADIENT (C):?normal, warm to cool, proximal to distal, B/L, B/L.?PIGMENTATION:?normal, B/L.?EDEMA (C):?absent, B/L.?Dermatologic: ?SKIN FINDINGS:?Skin shows sign(s) of, erythema, , swelling base of the styloid process left.?X-Rays - IMAGING REPORT: ?Clinical Indication(s):? Evaluate for Fracture.?Views:?3 views of Foot, LEFT, AP, LAT, LO??Taken by trained?Podiatric Upholstery Technician (?sf_ ).?Findings:?normal bone and soft tissue density consistent for patients age and sex, hypertrophy 5th MTH, hypertrophy of 5th MT Base/Styloid process.?Fracture:?Negative fractures identified.? 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 Plan: * Treatment: 2.?Pain in left foot?Imaging: X ray : Foot, left 3V (Performed Date - 03/18/2025)?See Examination above * Procedure Codes:?02089 X-RAY EXAM OF LEFT FOOT 3V, Modifiers: 26 , LT * Preventive Medicine:? ??Counseling:?Discussion:?-14: Office or other outpatient visit for the evaluation and management of an established patient, which required a medically appropriate history and/or examination and MODERATE level of DECISION MAKING for: 1 OR MORE CHRONIC PROBLEM(S) THATS WORSENING, 2 STABLE CHRONIC PROBLEMS, A NEWLY DIAGNOSED PROBLEM WITH UNCERTAIN PROGNOSIS, AN ACUTE COMPLICATED INJURY WITH MULTIPLE TREATMENT OPTIONS, OR AN ACUTE PROBLEM WITH ACCOMPANYING SYSTEMIC SYMPTOMS, THAT POSE(S) A MODERATE RISK OF MORBIDITY. THIS CONDITION MAY ALSO INCLUDE RX DRUG MANAGEMENT, OR A DECISON FOR MINOR SURGERY. The visit on the day of the encounter encompassed interpreting the data and educating the patient as to the nature of their condition, treatment options available according to their individual PMH, meds, allergies, and overall health/living conditions, as well as any potential risks or complications that may occur from a failure to adhere to, and participate in, the recommended course of therapy. The discussion included a complete verbal, and/or written explanation of the examination results, any x-rays taken, the proposed diagnosis, and outline of the treatment plan. A schedule for future care needs was also explained. The patient verbalized an understanding of the instructions at this time and agreed to be an active participant in their treatment. If the patient should think of any questions or concerns after the visit, I have encouraged the patient to call the office.?BioMech.:?I discussed the Pts foot biomechanics with them and how it relates to their problem, Discussed and reviewed the X-rays with the patient. We discussed how the findings relate to the patients symptoms/complaints. Answered any and all questions..?Myositis/Tendonitis:?TENDONITIS: I explained to the patient the possible etiologies of their Tendonitis, including foot type/shoegear/activity level/exercise routine and the risks/benefits of the different treatment options for their pain including: No treatment at all, Rest, Ice, Oral Prednisone, NSAIDs(only if well tolerated after meals), New/supportive Shoegear, Strappings and Tapings, Stretching exercises, Deep Tissue Massage, Heel cups/cushions, Arch support/shoe inserts, Custom orthoses, Foot/Ankle AFO Bracing, Cast boot with crutches/cane/or walker for assisted ambulation, Topical analgesics including Aspercream/Voltaren gel, Physical Therapy, EPAT/ESWT, and Interfil injection therapy. Tendon surgical procedures including reefing and/or transfers were also detailed should either one become necessary through failure of conservative treatment. The advantages and disadvantages of each option were discussed and the patients questions re: shoegear, the difference between custom vs prefabricated inserts, activity level, PO vs Topical medications (and their respective potential complications/drug interactions/side effects), consistency in home treatment regimens for optimal success, as well as the potential benefits and possible complications of reconstructive surgery (includeing, but not limited to failure, prolongued/delayed healing, infection, weakness, persistant pain) were answered to their verbally confirmed satisfaction.?P.R.I.C.E.:?The patient was counseled on the use of P.R.I.C.E. and NSAIDS (if well tolerated) to aid in the recovery from their painful condition.?Stretching Exercises:?Peroneal strengthening exercises were recommended, detailed and demonstrated, Handouts were also given.?X-rays:?The Pt. was counseled on the x-rays, treatment options, and the importance of following all homecare instructions.? ??Screening/Special Tests:?Fall Risk?Screening:?No falls in the past year ?FALLS: Screening for Future Fall Risk?Have you had any falls with injury in the past year??No * Follow Up:?4 Weeks * Images: * Sign off status: Completed true * Provider:?Alexandrea Pollard DPM Date:?2024 Generated for Abdoul carlin/Carlito/Jakob on:?04/20/2025 08:45 AM EDT History and Physical Notes * HPI (History of Present Illness) Category Sub-Category Detail Notes Category Not es Foot Pain Nature: aching, pulling, tenderness, throbbing, weakness Location: LEFT Duration: , several months Onset: , unknown, denies tr auma Course: worse Aggravated: any pressure, standi ng, walking Treatments: rest/alter normal da sebastian activity, ice, medication ( tylenol ) has not helped Examination Category Sub-Category Detail Notes Category Not es Neurological SENSORY: Neurological exa m reveals intact sensorium, pain sensation normal, vibration sensation intact, pinprick sensation is normal in the lower extremities, Pt denies, anesthesia, burning, paresthesia, tingling, B/L TINEL'S COMPRESSION: Negative tarsal anabell naomie, ekaterina pedis, and medial calcaneal nerves Dermatologic SKIN FINDINGS: Skin shows sign( s) of, erythema, , swelling base of the styloid process left Orthopedic GAIT ABNORMALITY: Supinated, B/L FOOT MORPHOLOGY: , normal, B/L FOOTWEAR EVALUATION: good condition DIGITAL DEFORMITIES: Digital contracture , PIPJ, 2-5 B/L, incompl-reducible with WB, or to push-up test, no over, nor underlapping TAILOR'S BUNION: Prominent 5th MTH/MP J, LEFT, Enlarged, painful, prominent, inflamed 5th Metatarsal Base, LEFT TENDONITIS: Pain on palpation, i nflammation, and fusiform swelling to, LEFT, Peroneal Complex at the insertion into the styloid precess, pain with ROM MUSCLE STRENGTH: 5/5 all groups in a symmetrical fashion, B/L General Examination GENERAL APPEARANCE: Reveals a pleasant, alert, well nourished, well-developed, well hydrated individual, who demonstrates proper attention to hygiene/body habitus, and is in no acute distress, Pt serves as own historian for office visit today ORIENTED: person, place, and t genna Vascular DP PULSES (B): 3/4, B/L PT PULSES (B): 3/4, B/L CAPILLARY FILL TIME: immediate, all digi ts, B/L TEMPERTURE GRADIENT (C): normal, warm to cool, proximal to distal, B/L, B/L TROPHIC CONDITION-TEXTURE/ELASTICITY/TURGOR/HAIR GROWTH (B): normal, B/L EDEMA (C): absent, B/L PIGMENTATION: normal, B/L X-Rays - IMAGING REPORT Findings: normal b one and soft tissue density consistent for patients age and sex, hypertrophy 5th MTH, hypertrophy of 5th MT Base/Styloid process Fracture: Negative fractures i dentified Views: 3 views of Foot, LEF T, AP, LAT, LO Taken by trained Podiatric Upholstery Technician ( sf_ ) Clinical Indication(s): Evaluate for Fra cture
--- OUTSIDE RECORDS SUMMARY | 2025-04-20 08:45 | XMS_ITS | Data Portability ---
Author Organization [facility] Address [address] [place] [address] Care Team Providers Care Centerless Grinder Name Role Phone POPPY MEJIA Primary Care Provider Assessment No assessment recorded. Plan of Treatment Reminders Order Date Submit Date Provider Last Modified By Organization Details Last Modified Time Details Appointments None recorded. Lab None recorded. Referral None recorded. Procedures None recorded. Surgeries None recorded. Imaging audiogram 2023 [facility], [address], [address], [place], [address], 13:21:58 tympanogram 2023 024 [facility], [address], [address], [place], [address], 13:21:49 Medication Orders None recorded. Patient TargetsNo targets recorded. Patient InstructionsNo instructions recorded. Reason for Referral None Reported. Results Created Date Observation Date Name Description Value Unit Range Abnormal Flag Note LastModifiedBy Organization Detail LastModifiedTime 02/03/2002/03/2024 audio gram No observ ation record ed. [facility] [address], [place], [address], 02/03/2024 13:21:58 02/03/20 24 02/03/2024 tympa cosmera m No observ ation record [place]. [place] [address] [facility] [address], [place], [address], 02/03/2024 13:21:49 02/03/20 24 audio gram No observ ation record ed. [email or web address] Not Available 2023 11:35:20 02/03/20 24 tympa nogra m No observ ation record ed. [email or web address] Not Available 2023 13:22:40 Result Notes None recorded. Problems Name Problem SNOMED Code Status Onset Date Resolution Date Notes Provider Name and Address Organization Details Recorded Time Malignant tumor of colon 868155632 Completed 202302/03/2024 Kayleen villarreal [place] [facility] 10:53:45 Problem Notes None recorded. Procedures Surgical History Date Name Laterality Status Provider Name and Address Organization Details Recorded Time 2 procedure on heart completed Kayleen LOMEL[facility] - [facility] 02/03/2024 10:54:15 6 procedure on colon completed Kayleen Pires [facility] 02/03/2024 10:54:06 Imaging Results Imaging Date Name Status LastModified by Organ [facility] Details LastModified Time 02/03/2024 audiogram completed [place] [id number] [facility] [address], [place], [address], 02/03/2024 13:21:58 02/03/2024 tympanogram completed [place] [address] [facility] [address], [place], [address], 02/03/2024 13:21:49 02/03/2024 audiogram completed [place] [address] Information no t available 02/03/2024 11:35:20 02/03/2024 tympanogram completed [place] [address] Information n ot available 02/03/2024 13:22:40 Procedure Notes None recorded. Medical Equipment None Reported. Allergies Allergen ID Allergen Name Allergen Category Reaction Reaction Severity Criticality Documentation Date Start Date Code Code System Note Provider Name and Address Organization Details Recorded Time 8347 Product containin g penicilli n (product) medicatio n Not available Not available Not available 02/03/2024 58470 8001 SNOMED Kayleen Pires [place], [place] - [facility] 11:13:30 Medications Name [...] SNOMED-CT Code Diagnosis ICD10 Code Diagnosis Note [id number] Carlos mcgee MD [facility] [address] [place] [address],[address] [place] [address] 02/03/2024 10:24:21 02/03/2024 11:46:21 Impacted cerumen in left ear 2497404027 547376 H61.22 Removed today Sensorineu ral hearing loss of bilateral ears 002421424 H90.3 Tymps WNL AUAudio - WNL sloping to SNHL AUCleared for hearing aids Bilateral disorder of ears 0435229837 401567 H93.8X3 Reassured no evidence of fluid or infection Health Concerns Section Related Observation LastModified by Organization Detai ls LastModified Time None Recorded Concern Status LastModified by Organization Details LastModified Time None Recorded Advance Directives Directive None Recorded Payers Insurance Date Sequence Insurance Name Policy Number Policy Resendiz Covered Member ID Resendiz Member ID Guarantor Name 04/07/2024 1 [place] Abel Guzman [id number] Abel Guzman 04/07/2024 2 [place] [id number] Abel Guzman [id number] Abel Guzman 04/07/2024 2 [place]) Abel Guzman Notes Date Note Type Note [...] [place] [address], [place], [address], [facility] 02/03/2024 11:41:45
--- OUTSIDE RECORDS SUMMARY | 2025-04-20 08:46 | XMS_ITS | Patient Health Record ---
Author Organization Hansel Hussein III, MD Address [address] [place] [address] Care Team Providers Care Manager Sharepoint Name Role Phone Bandar Coronado MD Primary Care Provider Unavaila Hansel Rodriguez Unavailable [phone] WILSON STARKS MD Unavailable Unavailable Allergies Allergen [...] Problem Status W/U Status Risk Notes Problem 253692981 Overweight (E66.3) Active confirmed His body mass index is 27 and I have recommended weight loss through exercise and diet restricted in fat calories in sodium. Problem 062915410 GERD (gastroesophageal reflux disease) (K21.9) Active confirmed His reflexes well controlled with rrru-czi-gtkga er medication. 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 Problem 10122729 Lumbosacral spondylosis without myelopathy (M47.817) Active confirmed His back pain is mild and has not been troubling him lately. No treatment is necessary. 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 His last colonoscopy was normal. He is feeling healthy and well and surveillance will continue. Plan Of Treatment Pending Test Test Name Order Date PROFILE, RANDOM (COMPREHENSIVE METABOLIC ) 02/24/2018 PROFILE, RANDOM (COMPREHENSIVE METABOLIC ) 11/07/2017 PROFILE, RANDOM (COMPREHENSIVE METABOLIC ) 08/28/2018 CEA 02/24/2018 CEA 11/07/2017 CEA 08/28/2018 CBC w DIFF 08/28/2018 CBC w DIFF 02/24/2018 CBC w DIFF 11/07/2017 Insurance Providers Payer Name Payer Address Payer Phone Subscriber Number Group Number Insured Name Patient Relationship to Insured Coverage Start Date Coverage End Date MEDICARE NGS [address] [place] [address] [id number] Abel Walters Self - patient is the insured [facility] [address] [place], [place] [id number] [phone] [id number] Abel Walters Self - patient is [...]
[2025-04-20 09:19] LABS: Hematocrit 48.8 % (42.0-52.0); Hemoglobin 16.1 g/dl (14.0-18.0); Mean Corpuscular Hemoglobin 31.9 pg (27.0-33.0); Mean Corpuscular Volume 96.8 fL (80.0-98.0); Mean Platelet Volume 9.8 fL (9.4-12.4); Platelet Count 204 X10*3/uL (160-400); Red Blood Count 5.04 X10*6/uL (4.60-5.80); Red Cell Distribution Width 12.7 % (11.0-16.0); White Blood Count 4.1 X10*3/uL (4.8-10.8)
[2025-04-20 10:00] LABS: Alanine Aminotransferase 22 U/L (0-40); Albumin Level 4.2 g/dL (3.5-5.0); Alkaline Phosphatase 64 U/L (39-117); Anion Gap 12 (12-20); Aspartate Amino Transferase 22 U/L (5-37); Bilirubin Total 0.8 mg/dL (0.0-1.0); Blood Urea Nitrogen 16 mg/dL (9-16); Calcium 9.2 mg/dL (8.4-10.2); Carbon Dioxide 26 mmol/L (22-29); Chloride 108 mmol/L (96-108); Cholesterol 93 mg/dL (<200); Estimated Glomerular Filt Rate > 60; Glucose Fasting 94 mg/dL (60-99); HDL Cholesterol 63 mg/dL (>40); LDL Cholesterol Calculated 23 mg/dL (<100); Potassium 4.7 mmol/L (3.3-5.1); Sodium 141 mmol/L (135-145); Total Protein 6.7 g/dL (6.5-8.0); Triglycerides 37 mg/dL (<150)
[2025-04-20 10:21] LABS: Prostate Specific Antigen Scr 4.68 ng/mL (<0.05-4.0)
[2025-04-20 10:36] LABS: Creatinine Urine 154.34 mg/dL; Microalbum/Creatinine Ratio Ur 8.4 ug/mg cr (<30)
== END 2025-04-20 08:33 | disposition home or self-care (01) ==
LOC: HO.LAB 08:32
PROVIDERS: PCP Physician Assistant; Visit Provider Physician Assistant
DX: I25.10 Atherosclerotic heart disease of native coronary artery without angina pectoris (principal); I10 Essential (primary) hypertension; Z12.5 Encounter for screening for malignant neoplasm of prostate
CPT/HCPCS: 36415; 80053; 80061; 82043; 82570; 84153; 85027

== ENCOUNTER → 2025-05-10 10:37 | Outpatient (REF) | payer MEDICARE, SELFPAY ==
[2023-05-06 08:19] VITALS: BP 120/60; BP 120/65; BMI 27.3
--- NOTE | 2025-05-10 10:40 | CA_ITS ---
Transthoracic Echocardiogram Patient (Last, First, Middle): Abel Guzman C Gender: Male Date of : 1950 Age: 74 Procedure Date: 05/10/2025 Procedure Type: Transthoracic Echocardiogram Location: OP Height: 180.34 cm Weight: 88. kg BSA: 2.08 m2 Heart Rate: bpm BP: 120 / 80 mmHg Pipe Organ Technician: YAMILE Referring MD: Kenan Aguilar MD Continuing Education Specialist: Kenan Aguilar MD Symptoms: I25.10 - Atherosclerotic heart disease of hoh coronary artery without... Study Quality: Adequate ECG Rhythm: Sinus Conclusions: - 1. Mildly reduced LV ejection fraction 45-50% with impaired relaxation filling pattern with underlying regional wall motion abnormality consistent with coronary artery disease 2. Cardiac valvular Dopplers within normal limits 3. Mildly dilated ascending aorta 3.7 cm 4. Normal RV systolic pressure 5. No gross pericardial effusion Findings Left Ventricle Normal left ventricular cavity size. There is normal left ventricular wall thickness. The left ventricular systolic function is mildly decreased. Spectral Doppler is indicative of an impaired relaxation filling pattern. E/E prime ratio is between 8 and 15 consistent with indeterminate filling pressures. Wall Motion Rest Echo Findings The mid inferoseptal and basal inferolateral segments are hypokinetic. The basal inferior, mid inferior, and basal inferoseptal segments are akinetic. All other scored wall segments showed normal motion. Right Ventricle Normal right ventricular cavity size and systolic function. Atria The left atrium is likely dilated. There is no evidence of interatrial shunt. The right atrium is normal in size. Aortic Valve There is mild calcification of the aortic valve. There is no aortic valve stenosis. There is no aortic valve regurgitation. Mitral Valve There is mild anterior and posterior mitral leaflet thickening. There is trace mitral valve regurgitation. There is no mitral valve stenosis. Pulmonic Valve The pulmonic valve was not well visualized. Tricuspid Valve Likely normal tricuspid valve structure and function. There is trace tricuspid valve regurgitation. The right ventricular systolic pressure is normal. The right ventricular systolic pressure is 18 mmHg. Normal right atrial pressure. There is no evidence of pulmonary hypertension. Great Vessels The pulmonary artery was not well visualized. There is mild dilatation of the ascending aorta measuring 3.70 cm. Venous The inferior vena cava is normal in size and collapses greater than 50% with inspiration. Pericardium/Pleural There is no evidence of pericardial effusion. Prior Study Comparison Changes noted compared to prior study dated: 04/11/2023. RV systolic pressure is within normal limits Measurements 2D Linear Measurements IVSd: 1.17 0.6-0.9/0.6-1.0 cm LVIDd: 5.05 3.9-5.3/4.2-5.9 cm LVIDd Index: 2.43 2.4-3.2/2.2-3.1 cm/m2 LVIDs: 4.20 2.0-3.6 cm LVPWd: 0.81 0.7-1.1 cm LA Diam: 4.10 2.7-3.8/3.0-4.0 cm LAIDs Index: 1.97 1.5-2.3 cm/m2 LV Mass: 227.54 67-162/88-224 g LV Mass Index: 109.39 43-95/49-115 g/m2 LVOT Diam: 2.20 3.0+(-)1.3 cm 2D Systolic Function EF 4C: 47.40 >55% EF 2C: 50.90 >55% EF BiP: 49.50 >55% Mitral Valve MV Pk E: 0.55 MV PK A: 0.60 MV Decel Time: 232.00 E/A: 0.90 E'Lateral: 7.51 E'Medial: 5.87 E/E' Med: 9.30 E/E' Lat: 7.30 PHT: 68.00 MVA PHT: 3.24 Decel Crane: 2.36 Aortic Valve AoV Pk Mohamud: 1.19 AoV Mn Mohamud: 0.74 AoV VTI: 0.28 AoV Pk Grad: 6.00 Aov Mn Grad: 3.00 KYLE Cont.VTI: 2.41 LVOT LVOT Pk Mohamud: 0.71 LVOT Mn Mohamud: 0.43 LVOT VTI: 0.18 LVOT Pk Grad: 2.00 LVOT Mn Grad: 1.00 LVOT Diam: 2.20 LVOT Area: 3.80 Diastolic Function MV Pk E: 0.55 MV Pk A: 0.60 E/A: 0.90 E'Medial: 5.87 E/E' Med: 9.30 E' Laterial: 7.51 E/E' Lat: 7.30 Right Ventricle TAPSE (mm): 18.30 TVS' Mohamud: 7.80 Tricuspid Valve TR Pk Mohamud: 1.95 TR Pk Grad: 15.00 RA Press: 3.00 RVSP: 18.00 Great Vessels Aorta Sinus of Valsalva: 3.33 2.0-3.5 cm Ao Asc: 3.70 2.1-3.4 cm Ao Arch: 3.30 Updated in Other Vendor System with Status of Final Kenan Aguilar MD electronically signed on 05/10/2025 3:14:43 PM with status of Final
--- OUTSIDE RECORDS SUMMARY | 2025-05-10 11:55 | XMS_ITS | Patient Health Record ---
[facility] [place] Address [address] [facility] [place] [address] Care Team Providers Care Hand Tire Trimmer Name Role Phone Hakeem Noble Primary Care Provider Unavailab rayna Alexandrea Pollard Unavailable [phone] Allergies Allergen (clinical drug ingredient) Drug/Non Drug [...] pressure diastolic 70 mm Hg 03/18/2025 Height [id number] in 03/18/2025 Blood pressure systolic 120 mm Hg 03/18/2025 Weight 195 lbs 03/18/2025 BMI 27.19 kg/m2 03/18/2025 Encounters Encounter Location Date Provider Diagnosis [facility] [place] [address] [place] [address] 03/18/2025 Alexandrea Black Pain in left foot [...] Inc [address] [place] [address] [phone] [id number] Abel Guzman Self - patient is the insured [facility] [address] [place] [address] [phone] [id number] Abel Guzman Self - patient is the insured Medical (General) History Medical History History ICD Code Cancer covid-19 Headaches/Migraines Reflux ( GERD) Chicken pox Surgical History Surgery Date(Month/Year) colon resection 12/14/2014 Heart stent Implant 05/31/222 carpal tunnel surgery left 04/13/2014 trigger finger release right 11/11/2012
== END ==
LOC: HO.CARD 10:37
PROVIDERS: PCP Physician Assistant; Visit Provider Internal Medicine Cardiovascular Disease
DX: I25.10 Atherosclerotic heart disease of native coronary artery without angina pectoris (principal)
CPT/HCPCS: 93306

== ENCOUNTER → 2025-05-10 10:40 | Outpatient (BNV) | payer MEDICARE, SELFPAY ==
[2023-05-06 08:19] VITALS: BP 120/60; BP 120/65; BMI 27.3
== END ==
PROVIDERS: PCP Physician Assistant; Visit Provider Internal Medicine Cardiovascular Disease
DX: I70.0 Atherosclerosis of aorta (principal); I25.10 Atherosclerotic heart disease of native coronary artery without angina pectoris
CPT/HCPCS: 93306

== ENCOUNTER 2025-05-17 08:34 | Outpatient (AMB) | payer MEDICARE, SELFPAY ==
[2023-05-06 08:19] VITALS: BP 120/60; BP 120/65; BMI 27.3
--- NOTE | 2025-05-17 08:43 | A.OFFVIS_ITS ---
Vital Signs 05/17/25 08:44 Height 5 ft 11 in Weight 195 lb 5.273 oz BMI 27.2 BP 110/66 Blood Pressure Location Lt brachial Position Sitting Pulse 63 Pulse Source Monitor Intake Visit Reasons: 1 yr follow up Intake Note: 1 yr f/up Truck Hop Required: No Accompanied by: Self / Same As Patient Allergies amoxicillin Allergy (Unknown, Verified 03/16/25 12:26) Unknown shellfish derived Adverse Reaction (Intermediate, Verified 03/16/25 12:26) VOMITING Medication List - Last Reconciled 05/17/25 by Kenan Aguilar MD aspirin (Adult Aspirin Regimen) 81 mg PO DAILY carvedilol 6.25 mg PO Q12H evolocumab (Repatha SureClick) 140 mg subcut Q2W omeprazole 20 mg PO DAILY rosuvastatin 10 mg PO DAILY HPI Comments Details: Gennaro comes for follow-up. He has been doing very well overall. He complains of intermittent episodes of sharp retrosternal chest pain quite different from in his myocardial infarction pain which was pressure. Symptoms do not happen with exertion. Happen randomly. They are not very frequent. Symptoms can last for up to 10-15 minutes. Recent echocardiogram shows mildly reduced EF of 45-50% w ith inferior wall motion abnormality. He is scheduled to undergo exercise myocardial perfusion imaging in near future. He has not had any episodes of rapid heart rate. No heart failure symptoms. Takes all his medications. Last LDL is extremely well optimized in the 20s. [facility] Medical History Painless jaundice Screening for hyperlipidemia Screening for diabetes mellitus Renal cyst Rectal bleeding Other obstructive and reflux uropathy Benign prostatic hyperplasia with lower urinary tract symptoms Genetic testing Family history of pancreatic cancer History of colon cancer Surgical History Stented coronary artery History of colon resection (~12/14/14) History of colonoscopy (~10/18/14) Family History Father History of heart disease Mother History of colon cancer Brother History of liver cancer History of pancreatic cancer Sister History of lung cancer Daughter History of breast cancer Social History Housing: House Alcohol intake: current Alcohol intake frequency: a few times a month Patient Tobacco Use Status: Never used Tobacco e-Cigarette/Vaping Use: Never Used Second Hand Smoke Exposure: No service: No Current occupational status: retired Cognitive needs: No Hearing needs: No Vision needs: Yes (reading) Review of Systems Const Denies chills, Denies fatigue, Denies fever(s), Denies frequent falls, Denies weakness, Denies weight gain and Denies weight loss ENT Denies dizziness Card Denies chest pain, Denies leg edema, Denies lightheadedness, Denies palpitations, Denies dyspnea and Denies dyspnea on exertion Resp Denies cough, Denies dyspnea and Denies dyspnea on exertion GI Denies hematochezia Musc Denies abnormal gait, Denies muscle weakness, Denies numbness, Denies radiating pain into limb and Denies tingling Neuro Denies Abnormal speech present, Denies abnormal gait, Denies dizziness, Denies frequent falls, Denies numbness, Denies tingling and Denies weakness Endo Denies fatigue and Denies palpitations Physical Exam Vital Signs: Last Vital Signs Pulse 63 05/17/25 08:44 BP 110/66 05/17/25 08:44 BMI result Body Mass Index 27.2 Const General: cooperative, comfortable, no acute distress, alert, awake and anxious Orientation/consciousness: patient oriented x3 Neck Neck: Yes trachea midline, Yes supple and Yes no JVD Resp Effort & Inspection: normal respiratory effort Auscultation: clear to auscultation bilaterally Cardio Jugular venous distension: no JVD Palpation: normal PMI Rate: regular rate Rhythm: regular rhythm Heart sounds: S1 normal heart sound present, S2 normal heart sound present, no click, no gallops, no murmurs and no rubs Neuro General: patient oriented x3 and no focal motor deficits Speech: No Abnormal speech present Extrem General: Yes no clubbing, cyanosis or edema Office Procedures EKG Details: EKG shows normal sinus rhythm with inferior infarct 35123-[id number], Complete Assessment & Plan Assessment & Plan (1) CAD (coronary atherosclerotic disease): Code(s): I25.10 - Atherosclerotic heart disease of citizen [place] coronary artery without angina pectoris Category: Medical Qualifiers: Associated angina: without angina Coronary Disease-Associated Artery/Lesion type: citizen [place] artery [place] vs. transplanted heart: citizen [place] heart Qualified Code(s): I25.10 - Atherosclerotic heart disease of citizen [place] coronary artery without angina pectoris Plan: CAD with prior RCA stent for inferior infarct with mild LV systolic dysfunction. Clinically not having any signs of congestive heart failure. Continue lifelong aspirin therapy. Blood pressure is currently well optimized. LV is extremely well optimized on dual therapy with Repatha and rosuvastatin therapy. Continue the same. Importance of regular physical activity was discussed. His chest pain appears to be very atypical for myocardial ischemia have discussed with him. He is undergoing exercise myocardial perfusion imaging in the near future. Further treatment based on the findings if need be. (2) Paroxysmal A-fib: Code(s): I48.0 - Paroxysmal atrial fibrillation Category: Medical Plan: Paroxysmal atrial fibrillation without any obvious clinical recurrence. This was an acute setting with pericarditis. This has not recurred. Continue carvedilol therapy. Avoidance of stimulants was discussed. No indication for oral anticoagulation therapy as this was a transient episode of atrial fibrillation. Will follow up in the clinic in 1 year's time, sooner p.r.n.. Thank you for allowing me to partake in his care Coding Level of Care Code Est Pt Level 4 (26089) Complex EM visit Add On G2211 Diagnoses Atherosclerosis of citizen [place] coronary artery of citizen [place] heart without angina pectoris I25.10 Associated angina: without angina Coronary Disease-Associated Artery/Lesion type: citizen [place] artery [place] vs. transplanted heart: [place] heart Paroxysmal A-fib I48.0 CPT Codes EKG - CPT: 80634-[id number], Complete ([id number])
[2025-05-17 08:44] VITALS: BP 110/66; PULSE 63; BMI 27.2
--- OUTSIDE RECORDS SUMMARY | 2025-05-17 09:00 | XMS_ITS | Patient Health Record ---
Author Organization [facility] [place] Address [address] [facility] [place] [address] Care Team Providers Care Wet Pour Supervisor Name Role Phone Hakeem Noble Primary Care Provider Unavailab rayna Alexandrea Pollard Unavailable [phone] Allergies Allergen (clinical drug ingredient) Drug/Non Drug [...] pressure diastolic 70 mm Hg 03/18/2025 Height [id number] in 03/18/2025 Blood pressure systolic 120 mm Hg 03/18/2025 Weight 195 lbs 03/18/2025 BMI 27.19 kg/m2 03/18/2025 Encounters Encounter Location Date Provider Diagnosis [facility] [place] [address] [place] [address] 03/18/2025 Alexandrea Black Pain in left foot [...] Inc [address] [place] [address] [phone] [id number] Abel Guzman Self - patient is the insured [employer] [facility] [address] [place] [address] [phone] [id number] Abel Guzman Self - patient is the insured Medical (General) History Medical History History ICD Code Cancer covid-19 Headaches/Migraines Reflux ( GERD) Chicken pox Surgical History Surgery Date(Month/Year) colon resection 12/14/2014 Heart stent Implant 05/31/222 carpal tunnel surgery left 04/13/2014 trigger finger release right 11/11/2012
== END 2025-05-17 09:00 | disposition home or self-care (01) ==
LOC: HO.HCS 08:34
PROVIDERS: PCP Internal Medicine; Visit Provider Internal Medicine Cardiovascular Disease
DX: I25.10 Atherosclerotic heart disease of native coronary artery without angina pectoris (principal); I48.0 Paroxysmal atrial fibrillation
CPT/HCPCS: 93010; 99214; G2211

== ENCOUNTER → 2025-05-17 08:34 | Outpatient (BNVA) | payer MEDICARE, SELFPAY ==
[2023-05-06 08:19] VITALS: BP 120/60; BP 120/65; BMI 27.3
== END ==
PROVIDERS: PCP Internal Medicine; Visit Provider Internal Medicine Cardiovascular Disease
DX: I25.10 Atherosclerotic heart disease of native coronary artery without angina pectoris (principal); I48.0 Paroxysmal atrial fibrillation
CPT/HCPCS: 93005; 99212

== ENCOUNTER → 2025-05-26 09:43 | Outpatient (BNV) | payer MEDICARE, SELFPAY ==
[2023-05-06 08:19] VITALS: BP 120/60; BP 120/65; BMI 27.3
== END ==
PROVIDERS: PCP Physician Assistant; Visit Provider Radiology Diagnostic Radiology
DX: M19.041 Primary osteoarthritis, right hand (principal)
CPT/HCPCS: 73140

== ENCOUNTER 2025-05-26 10:15 | Emergency (ER) | payer MEDICARE, SELFPAY ==
[2023-05-06 08:19] VITALS: BP 120/60; BP 120/65; BMI 27.3
--- NOTE | ~2025-05-26 | XR_ITS ---
EXAMINATION: XR FINGERS RIGHT HISTORY: splinter R thumb COMPARISON: There are no prior studies available for comparison. FINDINGS: Three views of the right thumb are submitted. Osseous mineralization is normal. There is no fracture or dislocation. There is mild degenerative change of the interphalangeal joint. The soft tissues are unremarkable. No radiopaque foreign body is identified. XR/XR finger RT min 2V IMPRESSION: No radiopaque foreign body is identified. Electronically signed by: Hansel Peace MD 05/26/2025 10:48 AM EDT
[2025-05-26 10:29] VITALS: BP 147/82; PULSE 61; RESP 16; TEMP 35.9; O2SAT 95; BMI 27.0
--- NOTE | 2025-05-26 10:52 | ED_ITS ---
HPI - General Adult General Chief complaint: Skin/Abscess/Foreign Body Stated complaint: right thumb slivers Time Seen by Provider: 05/26/25 10:52 Source: patient Mode of arrival: ambulatory Limitations: no limitations History of Present Illness ED Provider: Gail Valentin PA-C HPI narrative: Patient is a 74 year old assigned male at with a history of HTN, GERD, CAD, and paroxysmal atrial fib not on anti-coagulants presenting to the emergency department today with retained splinters in his right thumb. Patient states that yesterday he got 2 splinters in his right thumb from a pressure treated wooden guard rail. Patient states that he is right hand dominant. Patient states that he removed some of the splinter himself yesterday (05/25/2025). Patient denies any dizziness, lightheadedness, abdominal pain, nausea, vomiting, fever, chills, blurry vision, double vision, loss of vision, chest pain, difficulty breathing, shortness of breath, back pain, night sweats, pain with urination, increased urinary frequency, increased urinary urgency, blood in his urine or stool, syncope or a near syncopal episode, bowel incontinence, bladder incontinence, or any other complaints at this time. Relieving factors: none Exacerbating factors: none Associated symptoms: denies other symptoms Treatments prior to arrival: other (attempted to remove the splinters) Related Data Home Medications ?Medication ?Instructions ?Recorded ?Confirmed aspirin 81 mg tablet,delayed 81 mg PO DAILY 06/08/22 0 05/17/25 release (Adult Aspirin Regimen) Previous Rx's ?Medication ?Instructions ?Recorded carvedilol 6.25 mg tablet 6.25 mg PO Q12H #180 tabs omeprazole 20 mg capsule,delayed 20 mg PO DAILY #90 ca ps 07/22/24 release evolocumab 140 mg/mL subcutaneous 140 mg subcut Q2W #6 mL 09/25/24 pen injector (Nasima Cevallos) rosuvastatin 10 mg tablet 10 mg PO DAILY #90 tabs 05/03 03/26 levofloxacin 750 mg tablet 750 mg PO DAILY 5 days #5 t abs 05/26/25 Allergies Allergy/AdvReac Type Severity Reaction Status Date / Time amoxicillin Allergy Unknown Unknown Verified 05/26/25 10:34 shellfish derived AdvReac Intermediate VOMITING Verified 05/26/25 10:34 Review of Systems 2 Constitutional: Constitutional: Reports no additional constitutional complaints, Denies chills, Denies fever(s) and Denies night sweats Eyes: Eyes: Reports no additional eye complaints, Denies blurry vision, Denies change in vision, Denies diplopia, Denies eye discharge, Denies loss of vision and Denies eye pain ENT: Denies dizziness Cardiovascular: Cardiovascular: Reports no additional cardiovascular complaints, Denies chest pain, Denies lightheadedness, Denies Loss of Consciousness and Denies dyspnea Respiratory: Respiratory: Reports no additional respiratory complaints and Denies dyspnea Gastrointestinal: Gastrointestinal: Reports no additional gastrointestinal complaints, Denies abdominal pain, Denies melena, Denies hematochezia, Denies change in bowel habits and Denies change in stool character Genitourinary: Genitourinary: Reports no additional male genitourinary complaints, Denies hematuria, Denies oliguria, Denies difficulty urinating, Denies dysuria, Denies urinary frequency, Denies urinary hesitancy, Denies urinary incontinence and Denies urinary urgency Musculoskeletal: Musculoskeletal: Reports no additional musculoskeletal complaints, Denies numbness and Denies tingling Comments: right thumb pain - 2 splinters in right thumb Neurologic: Denies dizziness, Denies loss of vision, Denies numbness and Denies tingling Psychiatric: Psychiatric: Reports no additional psychiatric complaints Endocrine: Endocrine: Reports no additional endocrine complaints Hematologic/Lymphatic: Hematologic/Lymphatic: Reports no additional hematologic/lymphatic complaints Allergic/Immunologic: Allergic/Immunologic: Reports no additional allergic/immunologic complaints [facility] Past Medical History Attestation statement: The following information was validated with the patient. Source: old records reviewed and nursing notes reviewed Medical History Painless jaundice Screening for hyperlipidemia Screening for diabetes mellitus Renal cyst Rectal bleeding Other obstructive and reflux uropathy Benign prostatic hyperplasia with lower urinary tract symptoms Genetic testing Family history of pancreatic cancer History of colon cancer Surgical History Stented coronary artery History of colon resection (~12/14/14) History of colonoscopy (~10/18/14) Family History Family History Father History of heart disease Mother History of colon cancer Brother History of liver cancer History of pancreatic cancer Sister History of lung cancer Daughter History of breast cancer Social History Social History Housing: House Alcohol intake: current Alcohol intake frequency: a few times a month Patient Tobacco Use Status: Never used Tobacco Smoked in Last 30 Days: No e-Cigarette/Vaping Use: Never Used Second Hand Smoke Exposure: No Use of substances other than those prescribed or required for medical reasons: No Advance Directives: No Advance Directives Information Provided: Yes service: No Current occupational status: retired Cognitive needs: No Hearing needs: No Vision needs: Yes (reading) Physical Exam ED Vital Signs: Vital Signs - 24 hr 05/26/25 10:29 05/26/25 11:24 05/26/25 12:42 Temperature 96.7 F L 96.7 F L 0 F L Pulse Rate 61 61 79 Respiratory Rate 16 16 18 Blood Pressure 147/82 H 147/82 H 146/76 H Pulse Oximetry 95 95 97 Oxygen Delivery Method Room Air Room Air Room Air BMI result Body Mass Index 27.0 Const General: cooperative, no acute distress, alert and awake Nutritional Appearance: well nourished Orientation/consciousness: patient oriented x3 HENMT Head: Yes normal to inspection and Yes atraumatic Ears: hearing grossly normal bilaterally and external ears normal General nose exam: Normal external nose present, no nasal discharge noted and no epistaxis Face and sinus: Yes normal facial exam, No abrasion and No laceration Mouth: Normal oral and palatal mucosa present, no drooling and no muffled voice Eyes General: appearance normal, both eyes and all related structures Periorbital: periorbital findings normal Eyelids: Yes eyelids normal Conjunctivae: conjunctivae normal Pupils: Equal, round and reactive pupils present EOM: EOMs intact bilaterally Neck Neck: Yes normal visual inspection, Yes full ROM and Yes no lymphadenopathy Resp Effort & Inspection: normal respiratory effort and able to speak in complete sentences Neuro General: patient oriented x3, moves all extremities and CN's II-XI intact bilaterally Cranial nerves: Yes Equal, round and reactive pupils present Cognition (Neuro): normal cognition Extrem General: Yes full ROM and Yes capillary refill normal Hand/finger images: 2 1. dark line - consistent with retained splinter Psych Appearance: grossly normal Mental Status: mental status grossly normal Affect: normal affect Attitude: cooperative Thought process: Normal thought process present Thought content: Normal thought content present Insight: Good insight present (Psych) Medications Administered Discontinued Medications Generic Name Dose Route Start Last Admin Trade Name Dana PRN Reason Stop Dose Admin Lidocaine HCl 10 ml 05/26/25 11:18 05/26/25 12:42 Lidocaine Hcl 1 % Mpf 5 Ml Vial INFILTRATI 05/26/25 11:19 10 ml ONCE ONE Administration Lidocaine HCl 10 ml 05/26/25 11:22 05/26/25 12:42 Lidocaine Hcl 1 % Mpf 5 Ml Vial SUBCUT 05/26/25 11:23 10 ml ONCE ONE Administration Procedures Foreign Body Removal Time Out Performed: yes Site: right (thumb) Description of foreign body: other (splinter) Technique: manual removal Confirmed by:: direct visualization, ultrasound and palpation Complications: none Post-procedure exam: awake, alert, normal BP, normal HR and normal O2 sat Neurovascular: normal distal pulse, normal capillary fill, distal light touch sensation intact, distal motor function normal and no signs of compartment syndrome Nerve Block Nerve Block 1: Time out performed: Yes Local Anesthetic: lidocaine 1% Amount of anesthesia used (mL): 10 Side: right Nerve Blocks: digital Procedure Successful: Yes Patient Tolerated Procedure: well Complications: none Medical Decision Making Medical Decision Making MDM Narrative: Patient is a 74 year old assigned male at with a history of HTN, GERD, CAD, and paroxysmal atrial fib not on anti-coagulants presenting to the emergency department today with retained splinters in his right thumb. Patient's physical exam was as noted in the physical exam portion of this note. Patient's right hand x-ray showed no acute process. I explained my physical exam findings as well as all test results to the patient. I answered all questions asked by the patient. Upon physical examination, patient's splinters could be visualized. I consulted with my attending physician, Dr. Lemus, who recommended reaching out to our orthopedic team. The orthopedic team examined the patient's thumb and determined the splinters were superficial enough for them to be removed by me in the emergency department. With Dr. Lemus' help the patient's right thumb was digitally blocked and 2 splinters were removed in their entirety after making a superficial longitudinal incision of the pad of the right thumb over where the splinters were visualized with an #11 blade. Patient's PMS was intact prior to and after splinters removal. Given this was pressure treated wood, patient will be started on Levoquin. I stressed the importance of the patient taking his medication as directed (either prescribed or as the over the counter packaging recommends). I stressed the importance of the patient following up with his primary care provider and the orthopedic team. I stressed the importance of the patient returning to the emergency department immediately if his symptoms were to worsen or if he were to develop any dizziness, shortness of breath, difficulty breathing, chest pain, blurry vision, loss of vision, nausea, vomiting, abdominal pain, fever, chills, back pain, or any other complaints. Patient verbalized agreement and understanding with this treatment plan and discharge. Image of the splinters removed: Differential Diagnosis Differential Diagnoses: The differential diagnosis associated with the presentation includes Foreign body Retained foreign body Admission/Observation Consideration of admission/observation: Escalation of care including admission/observation considered Patient would have been admitted to the hospital had his work up had any findings where hospital admission was appropriate and his clinical presentation warranted hospital admission. Consult Healthcare Provider Management of the patient was discussed with: Wildlife Conservation Professor (Consulted with the orthopedic team as noted in the MDM Rationale portion of this note. ) Independent Interpretation I performed an independent interpretation of an: Plain X-Ray Interpretation: My interpretation is in agreement with the radiologist's impression of this imaging study. L EXAMINATION: XR FINGERS RIGHT HISTORY: splinter R thumb COMPARISON: There are no prior studies available for comparison. FINDINGS: Three views of the right thumb are submitted. Osseous mineralization is normal. There is no fracture or dislocation. There is mild degenerative change of the interphalangeal joint. The soft tissues are unremarkable. No radiopaque foreign body is identified. XR/XR finger RT min 2V IMPRESSION: No radiopaque foreign body is identified. Electronically signed by: Hansel Peace MD 05/26/2025 10:48 AM EDT Dictated By: Hansel Peace MD Signed By: Electronically signed by Hansel Peace MD 05/26/25 1048 Radiology Impression Discussion of test interpretation with radiology: I have reviewed the radiologist's reading. Prescription Management I considered prescription management with: Antibiotic (Patient prescribed a prophylactic antibiotic given it was pressure treated wood.) Discharge Plan Discharge Clinical Impression: Foreign body (FB) in soft tissue Patient Disposition: Home, Self-Care Instructions: Soft Tissue Foreign Body (ED) Additional Instructions: Follow up with your primary care provider and the orthopedic team. Perform daily wound checks and dressing changes. Do NOT soak the affected area. Take your antibiotic as prescribed. Return to the emergency department immediately if your symptoms worsen or if you develop any numbness, tingling, dizziness, shortness of breath, difficulty breathing, chest pain, blurry vision, loss of vision, nausea, vomiting, abdominal pain, fever, chills, back pain, or any other complaints. Please see the information below about our Patient Portal. If you are not yet enrolled in the [facility] Patient Portal, you will receive an enrollment email invitation following your visit to any [facility] setting. You may also self-enroll in the Patient Portal by visiting our website: [email or web address] The following information is required to access the Patient Portal: - Your [facility] Medical Record Number - Your personal home email address (must match what is in your electronic medical record, Registration staff can assist with this) - Name - Date of Capabilities of the Patient Portal: - Message some providers - View upcoming appointments - Access your health summary, medical history, and visit history - View current conditions and allergies - View procedure and lab results - View your medications, including guidelines, side effects, and precautions - Complete pre-appointment questionnaires requested by your provider - Ready summary reports of your office visits and procedures To access the Patient Portal Mobile Trever, follow these directions: - Search [employer] in the Trever Store or UseTogether Store - Download the Trever - Search for [facility] - Enter your login/password Prescriptions: New levofloxacin 750 mg tablet 750 mg PO DAILY 5 Days Qty: 5 0RF No Action carvedilol 6.25 mg tablet 6.25 mg PO Q12H Qty: 180 3RF Rx Instructions: must administer with a meal/food omeprazole 20 mg capsule,delayed release(DR/EC) 20 mg PO DAILY Qty: 90 7RF Repatha SureClick 140 mg/mL pen injector 140 mg subcut Q2W Qty: 6 3RF rosuvastatin 10 mg tablet 10 mg PO DAILY Qty: 90 3RF aspirin [Adult Aspirin Regimen] 81 mg tablet,delayed release (DR/EC) 81 mg PO DAILY Referrals: [facility] Orthopedic Surgeons [Provider Group] Referral Note: Call to establish and follow up with an orthopedic provider. Hakeem Noble PA-C [Primary Care Provider, Internal Medicine] Interventions: ED Discharge Assessment Last Done: 05/26/25 12:42 Discharge Date/Time: 05/26/25 12:44 Print Language: Botswanan
[2025-05-26 11:24] VITALS: BP 147/82; PULSE 61; RESP 16; TEMP 35.9; O2SAT 95
--- NOTE | 2025-05-26 11:30 | PC.NURSE ---
74 M presents to ED with 2 slivers in R thumb from fishing by a guard rail yesterday. RR even and unlabored, denies sob. Pain is a 4/10 at R thumb. Denies CP or abdominal pain. denies any n/v/c/d. Pt is calm and cooperative, A+Ox4 and ambulatory.
--- OUTSIDE RECORDS SUMMARY | 2025-05-26 12:41 | XMS_ITS | Patient Health Record ---
[facility] [place] Address [address] [place] [address] Care Team Providers Care Cloth Baler Name Role Phone Hakeem Noble Primary Care Provider Unavailab rayna Alexandrea Pollard Unavailable [phone] Allergies Allergen (clinical drug ingredient) Drug/Non Drug [...] pressure diastolic 70 mm Hg 03/18/2025 Height [id number] in 03/18/2025 Blood pressure systolic 120 mm Hg 03/18/2025 Weight 195 lbs 03/18/2025 BMI 27.19 kg/m2 03/18/2025 Encounters Encounter Location Date Provider Diagnosis [facility] [place] [address] [place] [address] 03/18/2025 Alexandrea Black Pain in left foot [...] Inc [address] [place] [address] [phone] [id number] Abel Guzman Self - patient is the insured [employer] [facility] [address] [place] [address] [phone] [id number] Abel Guzman Self - patient is the insured Medical (General) History Medical History History ICD Code Cancer covid-19 Headaches/Migraines Reflux ( GERD) Chicken pox Surgical History Surgery Date(Month/Year) colon resection 12/14/2014 Heart stent Implant 05/31/222 carpal tunnel surgery left 04/13/2014 trigger finger release right 11/11/2012
[2025-05-26 12:42] VITALS: BP 146/76; PULSE 79; RESP 18; TEMP -17.7; TEMP 0; O2SAT 97
[2025-05-26] MEDS: Lidocaine HCl 1 % MPF 5 ML VIAL 10 ML SUBCUT (12:42)
[2025-05-26] MEDS: Lidocaine HCl 1 % MPF 5 ML VIAL 10 ML INFILTRATI (12:42)
== END 2025-05-26 12:44 | disposition home or self-care (01) ==
PROVIDERS: Emergency Provider Emergency Medicine; PCP Physician Assistant
DX: S60.351A Superficial foreign body of right thumb, initial encounter (principal); M79.641 Pain in right hand; X58.XXXA Exposure to other specified factors, initial encounter; W45.8XXA Other foreign body or object entering through skin, initial encounter; Y93.9 Activity, unspecified; Y92.9 Unspecified place or not applicable; Y99.8 Other external cause status
CPT/HCPCS: 10120; 64450; 73140; 99284; J2003

== ENCOUNTER 2025-05-28 09:47 | Outpatient (AMB) | payer MEDICARE, SELFPAY ==
[2023-05-06 08:19] VITALS: BP 120/60; BP 120/65; BMI 27.3
--- NOTE | 2025-05-28 09:55 | MHC.OFFVIS ---
Vital Signs 05/28/25 09:56 Height 5 ft 11 in Weight 193 lb BMI 26.9 Intake Visit Reasons: ED f/u- Rt thumb forgein body Intake Note: Abel is a right hand 74 year old male who presents today for an ED followup for his retained splinters in his right thumb. Patient states that on 05/25/25 he got 2 splinters in his right thumb from a pressure treated wooden guard rail. Seen in ED where xrays were taken, negative for any fractures. Patient states ED Doctors were able to remove the splinters. Patient comes in today to confirm no nerve or tendon damage. Denies and numbness or tingling. Allergies amoxicillin Allergy (Unknown, Verified 05/28/25 10:02) Unknown shellfish derived Adverse Reaction (Intermediate, Verified 05/28/25 10:02) VOMITING HPI HPI ED f/u- Rt thumb forgein body: Details: Abel is a right hand 74 year old male who presents today for an ED followup for his retained splinters in his right thumb. Patient states that on 05/25/25 he got 2 splinters in his right thumb from a pressure treated wooden guard rail. Seen in ED where xrays were taken, negative for any fractures. Patient states ED Doctors were able to remove the splinters. Patient comes in today to confirm no nerve or tendon damage. Denies and numbness or tingling. [facility] Medical History Painless jaundice Screening for hyperlipidemia Screening for diabetes mellitus Renal cyst Rectal bleeding Other obstructive and reflux uropathy Benign prostatic hyperplasia with lower urinary tract symptoms Genetic testing Family history of pancreatic cancer History of colon cancer Surgical History Stented coronary artery History of colon resection (~12/14/14) History of colonoscopy (~10/18/14) Family History Father History of heart disease Mother History of colon cancer Brother History of liver cancer History of pancreatic cancer Sister History of lung cancer Daughter History of breast cancer Social History Housing: House Alcohol intake: current Alcohol intake frequency: a few times a month Patient Tobacco Use Status: Never used Tobacco e-Cigarette/Vaping Use: Never Used Second Hand Smoke Exposure: No service: No Current occupational status: retired Cognitive needs: No Hearing needs: No Vision needs: Yes (reading) Review of Systems Const All systems reviewed & are unremarkable except as noted in HPI and below Physical Exam Vital Signs: BMI result Body Mass Index 26.9 Extrem Other: Patient is alert, oriented, and in no acute distress. Neuro: Normal sensation of the tips of all digits of the right hand at this time Vascular: Cap refill brisk Pain: No tenderness to palpation about incision and foreign body sites on right thumb No pain with range of motion of right thumb ROM: Patient is able to flex and extend the right thumb the IP joint Skin: There is noted to be a very small, approximately 0.25 cm diameter pocket of purulence just proximal to the incision site No lacerations or abrasions. General: No ecchymosis, erythema, or evidence of infection. Psych: Appears grossly normal Affect normal Attitude cooperative Assessment & Plan Assessment & Plan (1) Foreign body of right thumb: Code(s): S60.351A - Superficial foreign body of right thumb, initial encounter Category: Medical Plan 1. Right thumb foreign body status post removal Date of injury 05/26/25 Small area of purulence is lanced with a 27 gauge needle in the office today, and approximately 1 cc of purulent fluid is expressed After purulence has drained, small amounts of bloody and serosanguineous fluid are noted from the lancing site Antibiotics are refilled today No evidence of the larger or deeper abscess formation at this time Patient should continue antibiotics, these are refilled today Follow-up in 1 week for wound check, sooner with any acute concerns Patient is educated that if over the weekend he experiences increase in redness, swelling, pain, he should go to the emergency department Patient is amenable to this plan Coding Level of Care Code New Pt Level 3 (24671) Diagnoses Foreign body of right thumb S60.351A
[2025-05-28 09:56] VITALS: BMI 26.9
--- OUTSIDE RECORDS SUMMARY | 2025-05-28 10:17 | XMS_ITS | Patient Health Record ---
Author Organization [facility] [place] Address [address] [place] [address] Care Team Providers Care Bullet Casting Operator Name Role Phone Hakeem Noble Primary Care Provider Unavailab rayan Alexandrea Pollard Unavailable [phone] Allergies Allergen (clinical drug ingredient) Drug/Non Drug [...] Medrol 4 MG as directed Orally d aily; Duration: 6 days 03/18/2025 Active Rosuvastatin Calcium 10 [...] pressure diastolic 70 mm Hg 03/18/2025 Height [id number] in 03/18/2025 Blood pressure systolic 120 mm Hg 03/18/2025 Weight 195 lbs 03/18/2025 BMI 27.19 kg/m2 03/18/2025 Encounters Encounter Location Date Provider Diagnosis [facility] [place] [address] [place] [address] 03/18/2025 Alexandrea Black Pain in left foot [...] Inc [address] [place] [address] [phone] [id number] Abel Guzman Self - patient is the insured [employer] [facility] [address] [place] [address] [phone] [id number] Abel Guzman Self - patient is the insured Medical (General) History Medical History History ICD Code Cancer covid-19 Headaches/Migraines Reflux ( GERD) Chicken pox Surgical History Surgery Date(Month/Year) colon resection 12/14/2014 Heart stent Implant 05/31/222 carpal tunnel surgery left 04/13/2014 trigger finger release right 11/11/2012
== END 2025-05-28 10:41 | disposition home or self-care (01) ==
LOC: HO.HOS 09:48
PROVIDERS: PCP Physician Assistant
DX: S60.351A Superficial foreign body of right thumb, initial encounter (principal)
CPT/HCPCS: 20600; 99203

== ENCOUNTER → 2025-05-28 09:47 | Outpatient (BNVA) | payer MEDICARE, SELFPAY ==
[2023-05-06 08:19] VITALS: BP 120/60; BP 120/65; BMI 27.3
== END ==
PROVIDERS: PCP Physician Assistant
DX: S60.351A Superficial foreign body of right thumb, initial encounter (principal)
CPT/HCPCS: 20600; 99202

== ENCOUNTER 2025-05-31 14:11 | Outpatient (AMB) | payer MEDICARE, SELFPAY ==
[2023-05-06 08:19] VITALS: BP 120/60; BP 120/65; BMI 27.3
--- OUTSIDE RECORDS SUMMARY | 2025-05-31 14:44 | XMS_ITS | Patient Health Record ---
Author Organization [facility] [place] Address [address] [place] [address] Care Team Providers Care University Registrar Name Role Phone Hakeem Noble Primary Care Provider Unavailab rayna Alexandrea Pollard Unavailable [phone] Allergies Allergen (clinical drug ingredient) Drug/Non Drug [...] pressure diastolic 70 mm Hg 03/18/2025 Height [id number] in 03/18/2025 Blood pressure systolic 120 mm Hg 03/18/2025 Weight 195 lbs 03/18/2025 BMI 27.19 kg/m2 03/18/2025 Encounters Encounter Location Date Provider Diagnosis [facility] [place] [address] [place] [address] 03/18/2025 Alexandrea Black Pain in left foot [...] Inc [address] [place] [address] [phone] [id number] Abel Guzman Self - patient is the insured [facility] [address] [place] [address] [phone] [id number] Abel Guzman Self - patient is the insured Medical (General) History Medical History History ICD Code Cancer covid-19 Headaches/Migraines Reflux ( GERD) Chicken pox Surgical History Surgery Date(Month/Year) colon resection 12/14/2014 Heart stent Implant 05/31/222 carpal tunnel surgery left 04/13/2014 trigger finger release right 11/11/2012
--- OUTSIDE RECORDS SUMMARY | 2025-05-31 14:45 | XMS_ITS | Patient Health Record ---
Author Organization Hansel Hussein III, MD Address [address] [place] [address] Care Team Providers Care Payroll Associate Name Role Phone Bandar Coronado MD Primary Care Provider Unavaila Hansel Rodriguez Unavailable [phone] WILSON STARKS MD Unavailable Unavailable Allergies Allergen [...] Problem Status W/U Status Risk Notes Problem 728129157 Overweight (E66.3) Active confirmed His body mass index is 27 and I have recommended weight loss through exercise and diet restricted in fat calories in sodium. Problem 737361801 GERD (gastroesophageal reflux disease) (K21.9) Active confirmed His reflexes well controlled with vrgm-smc-fmtuu er medication. Problem 53987997 Congenital spondylolisthesis (Q76.2) Active confirmed Problem 800026702 BPH (benign prostatic hyperplasia) (N40.0) Active confirmed He rises once or twice a night but is satisfied with this level of control and does not require more medication. Problem 27744685 Lumbosacral spondylosis without myelopathy (M47.817) Active confirmed His back pain is mild and has not been troubling him lately. No treatment is necessary. Problem 100816605 Malignant neopla sm of right colon (C18.2) Active confirmed He remains free of recurrence. His last colonoscopy was normal. He is feeling healthy and well and surveillance will continue. Plan Of Treatment Pending Test Test Name Order Date PROFILE, RANDOM (COMPREHENSIVE METABOLIC ) 11/07/2017 PROFILE, RANDOM (COMPREHENSIVE METABOLIC ) 08/28/2018 PROFILE, RANDOM (COMPREHENSIVE METABOLIC ) 02/24/2018 CEA 02/24/2018 CEA 11/07/2017 CEA 08/28/2018 CBC w DIFF 02/24/2018 CBC w DIFF 11/07/2017 CBC w DIFF 08/28/2018 Insurance Providers Payer Name Payer Address Payer Phone Subscriber Number Group Number Insured Name Patient Relationship to Insured Coverage Start Date Coverage End Date MEDICARE NGS [address] [place] [address] [id number] Abel Walters Self - patient is the insured [facility] [address] [place], [place] [id number] [phone] [id number] Abel Walters Self - patient is [...]
--- OUTSIDE RECORDS SUMMARY | 2025-05-31 14:45 | XMS_ITS | Data Portability ---
Author Organization [place] [facility] Address [address] [place] [address] Care Team Providers Care Interior Design Director Name Role Phone POPPY MEJIA Primary Care Provider Assessment No assessment recorded. Plan of Treatment Reminders Order Date Submit Date Provider Last Modified By Organization Details Last Modified Time Details Appointments None recorded. Lab None recorded. Referral None recorded. Procedures None recorded. Surgeries None recorded. Imaging audiogram 2023 [facility], [address], [address], [place], [address], 13:21:58 tympanogram 2023 024 [facility], [address], [address], [place], [address], 13:21:49 Medication Orders None recorded. Patient TargetsNo targets recorded. Patient InstructionsNo instructions recorded. Reason for Referral None Reported. Results Created Date Observation Date Name Description Value Unit Range Abnormal Flag Note LastModifiedBy Organization Detail LastModifiedTime 02/03/2002/03/2024 audio gram No observ ation record ed. [email or web address] [facility] [address], [place], [address], 02/03/2024 13:21:58 02/03/20 24 02/03/2024 tympa amie m No observ ation record ed. [email or web address] [address], [place], [address], 02/03/2024 13:21:49 02/03/20 24 audio gram No observ ation record ed. [email or web address] Not Available 2023 11:35:20 02/03/20 24 tympa nogra m No observ ation record ed. [email or web address] Not Available 2023 13:22:40 Result Notes None recorded. Problems Name Problem SNOMED Code Status Onset Date Resolution Date Notes Provider Name and Address Organization Details Recorded Time Malignant tumor of colon 759601429 Completed 202302/03/2024 Kayleen villarreal [facility] 10:53:45 Problem Notes None recorded. Procedures Surgical History Date Name Laterality Status Provider Name and Address Organization Details Recorded Time 2 procedure on heart completed Kayleen LOMELI [facility] 02/03/2024 10:54:15 6 procedure on colon completed Kayleen LOMELI [facility] 02/03/2024 10:54:06 Imaging Results None recorded. Procedure Notes None recorded. Medical Equipment None Reported. Allergies Allergen ID Allergen Name Allergen Category Reaction Reaction Severity Criticality Documentation Date Start Date Code Code System Note Provider Name and Address Organization Details Recorded Time 8384 Product containin g penicilli n (product) medicatio n Not available Not available Not available 02/03/2024 30265 8001 SNOMED Kayleen villarreal [facility] 4 11:13:30 Medications Name Sig Start Date Stop [...] SNOMED-CT Code Diagnosis ICD10 Code Diagnosis Note [id number] Carlos mcgee MD [facility] [address] [place] [address] 02/03/2024 10:24:21 02/03/2024 11:46:21 Impacted cerumen in left ear 5846102753 255340 H61.22 Removed today Sensorineu ral hearing loss of bilateral ears 788848271 H90.3 Tymps WNL AUAudio - WNL sloping to SNHL AUCleared for hearing aids Bilateral disorder of ears 7418001643 423271 H93.8X3 Reassured no evidence of fluid or infection Health Concerns Section Related Observation LastModified by Organization Detai ls LastModified Time None Recorded Concern Status LastModified by Organization Details LastModified Time None Recorded Advance Directives Directive None Recorded Payers Insurance Date Sequence Insurance Name Policy Number Policy Resendiz Covered Member ID Resendiz Member ID Guarantor Name 04/07/2024 1 [place] Abel Guzman [id number] Abel Guzman 04/07/2024 2 [facility] [facility] (MEDICARE SUPPLEMENT) [id number] Abel Guzman [id number] Abel Megan 04/07/2024 2 [facility] 2 [place]MEDICARE SUPPLEMENT) Abel Roman Megan Notes Date Note Type Note Provider Name [...] [place] [address] [facility] [address], [place], [address], [facility] 02/03/2024 11:41:45
[2025-05-31 14:56] VITALS: BMI 26.9
--- NOTE | 2025-05-31 14:56 | MHC.OFFVIS ---
Vital Signs 05/31/25 14:56 Height 5 ft 11 in Weight 193 lb BMI 26.9 Intake Visit Reasons: OV-Rt thumb forgein body-wound check Intake Note: Abel 74 yr old male presents today for a wound check for his Right thumb foreign body status post removal Date of injury 05/26/25. STates he D/C ABX due to upset stomach. States he has had no drainage or pain. Allergies amoxicillin Allergy (Unknown, Verified 05/31/25 14:58) Unknown shellfish derived Adverse Reaction (Intermediate, Verified 05/31/25 14:58) VOMITING HPI HPI OV-Rt thumb forgein body-wound check: Details: Abel 74 yr old male presents today for a wound check for his Right thumb foreign body status post removal Date of injury 05/26/25. STates he D/C ABX due to upset stomach. States he has had no drainage or pain. [facility] Medical History Painless jaundice Screening for hyperlipidemia Screening for diabetes mellitus Renal cyst Rectal bleeding Other obstructive and reflux uropathy Benign prostatic hyperplasia with lower urinary tract symptoms Genetic testing Family history of pancreatic cancer History of colon cancer Surgical History Stented coronary artery History of colon resection (~12/14/14) History of colonoscopy (~10/18/14) Family History Father History of heart disease Mother History of colon cancer Brother History of liver cancer History of pancreatic cancer Sister History of lung cancer Daughter History of breast cancer Social History Housing: House Alcohol intake: current Alcohol intake frequency: a few times a month Patient Tobacco Use Status: Never used Tobacco e-Cigarette/Vaping Use: Never Used Second Hand Smoke Exposure: No service: No Current occupational status: retired Cognitive needs: No Hearing needs: No Vision needs: Yes (reading) Review of Systems Const All systems reviewed & are unremarkable except as noted in HPI and below Physical Exam Vital Signs: BMI result Body Mass Index 26.9 Extrem Other: Patient is alert, oriented, and in no acute distress. Neuro: Normal sensation of the tips of all digits of the right hand at this time Vascular: Cap refill brisk Pain: No tenderness to palpation about incision and foreign body sites on right thumb No pain with range of motion of right thumb ROM: Patient is able to flex and extend the right thumb the IP joint Skin: Small area of purulence has completely resolved since previous visit No lacerations or abrasions. General: No ecchymosis, erythema, or evidence of infection. Psych: Appears grossly normal Affect normal Attitude cooperative Assessment & Plan Assessment & Plan (1) Foreign body of right thumb: Code(s): S60.351A - Superficial foreign body of right thumb, initial encounter Category: Medical Plan 1. Right thumb foreign body status post removal Date of injury 05/26/25 Patient appears to be recovering very well from his injury No further signs or symptoms of infection Patient can wash the incision site with soap and water in the sink of the shower, but avoid submerging for another week Patient is amenable to this plan Follow-up as needed Coding Level of Care Code Est Pt Level 3 (25854) Diagnoses Foreign body of right thumb S60.351A
== END 2025-05-31 15:05 | disposition home or self-care (01) ==
LOC: HO.HOS 14:11
PROVIDERS: PCP Physician Assistant
DX: S60.351A Superficial foreign body of right thumb, initial encounter (principal)
CPT/HCPCS: 99213

== ENCOUNTER → 2025-05-31 14:11 | Outpatient (BNVA) | payer MEDICARE, SELFPAY ==
[2023-05-06 08:19] VITALS: BP 120/60; BP 120/65; BMI 27.3
== END ==
PROVIDERS: PCP Physician Assistant
DX: S60.351D Superficial foreign body of right thumb, subsequent encounter (principal)
CPT/HCPCS: 99212

== ENCOUNTER → 2025-06-22 07:38 | Outpatient (REF) | payer MEDICARE, SELFPAY ==
[2023-05-06 08:19] VITALS: BP 120/60; BP 120/65; BMI 27.3
--- NOTE | ~2025-06-22 | NM_ITS ---
EXERCISE MYOCARDIAL PERFUSION STUDY INDICATION: Chest pain TECHNIQUE: The patient was brought in for an exercise perfusion study on 06/22/2025. Patient performed exercise as per Kofi protocol and was injected 30 mCi of sestamibi once target heart rate was achieved. Images were obtained using the SPECT gamma camera interlaced with the gating device. Images were obtained in supine position. Resting perfusion study was performed on 06/23/2025. Patient was administered 30 mCi of sestamibi intravenously at rest. Images were then obtained in supine position. Total DLP 103 mGy-cm. Images were processed with the software and compared side to side in short axis, horizontal long axis and vertical long axis views. FINDINGS: Raw aquisition reviewed. The stress perfusion study showed decreased tracer uptake along the inferior wall. There is improvement with CT attenuation correction suggestive of components of diaphragmatic attenuation artifact. The gated study shows diminished LV systolic function with calculated LVEF of 41%. LV cavity is normal in size. The gated study shows reduced inferior wall contractility most prominent in the basal to mid segments. Resting study shows diminished tracer uptake in the inferior wall. There is improvement with CT attenuation correction but there is also subdiaphragmatic uptake and hence interpretation is difficult. Gating at rest difficult to assess and possibly reduced inferior wall thickening. LVEF 41%. The findings are consistent with probably fixed inferior perfusion defect. No clear reversible defects. NM/NM cardiolite stress test IMPRESSION: 1. Myocardial perfusion imaging study shows probable inferior infarct in the basal to mid portions. Resting study suboptimal for inferior wall. 2. Gated LVEF is 41% during stress and rest. 3. Transient ischemic dilatation not present. EKG component of the test reported separately. Electronically signed by: Chetan Romero MD 06/24/2025 04:05 PM EDT
--- OUTSIDE RECORDS SUMMARY | 2025-06-22 07:40 | XMS_ITS | Patient Health Record ---
Author Organization [facility] Christopher mcgee [place] Address [address] [place] [address] Care Team Providers Care Ceramics Machine Operator Name Role Phone Hakeem Noble Primary Care Provider Unavailab rayna Alexandrea Pollard Unavailable [phone] Allergies Allergen (clinical drug ingredient) Drug/Non Drug [...] pressure diastolic 70 mm Hg 03/18/2025 Height 0oo58vt in 03/18/2025 Blood pressure systolic 120 mm Hg 03/18/2025 Weight 195 lbs 03/18/2025 BMI 27.19 kg/m2 03/18/2025 Encounters Encounter Location Date Provider Diagnosis [facility] [place] [address] [place] [address] 03/18/2025 Alexandrea Black Pain in left foot [...] Inc [address] [place] [address] [phone] [id number] Abel Guzman Self - patient is the insured [employer] [facility] [address] [place] [address] [phone] [id number] Abel Guzman Self - patient is the insured Medical (General) History Medical History History ICD Code Cancer covid-19 Headaches/Migraines Reflux ( GERD) Chicken pox Surgical History Surgery Date(Month/Year) colon resection 12/14/2014 Heart stent Implant 05/31/222 carpal tunnel surgery left 04/13/2014 trigger finger release right 11/11/2012
--- OUTSIDE RECORDS SUMMARY | 2025-06-22 07:40 | XMS_ITS | Data Portability ---
Author Organization [place] [facility] Address [address] [place] [address] Care Team Providers Care Director Internal Control Name Role Phone JACKIE POPPY Primary Care Provider Assessment No assessment recorded. Plan of Treatment Reminders Order Date Submit Date Provider Last Modified By Organization Details Last Modified Time Details Appointments None recorded. Lab None recorded. Referral None recorded. Procedures None recorded. Surgeries None recorded. Imaging audiogram 2023 [facility], [address], [address], [place], [address], 13:21:58 tympanogram 2023 024 [facility], [address], [address], [place], [address], 13:21:49 Medication Orders None recorded. Patient TargetsNo targets recorded. Patient InstructionsNo instructions recorded. Reason for Referral None Reported. Results Created Date Observation Date Name Description Value Unit Range Abnormal Flag Note LastModifiedBy Organization Detail LastModifiedTime 02/03/2002/03/2024 audio gram No observ ation record ed. [email or web address] [facility] [address], [place], [address], 02/03/2024 13:21:58 02/03/20 24 02/03/2024 tympa amie m No observ ation record ed. [email or web address] [facility] [address], [place], [address], 02/03/2024 13:21:49 02/03/20 24 audio gram No observ ation record ed. [email or web address] Not Available 2023 11:35:20 02/03/20 24 tympa nogra m No observ ation record ed. [email or web address] Not Available 2023 13:22:40 Result Notes None recorded. Problems Name Problem SNOMED Code Status Onset Date Resolution Date Notes Provider Name and Address Organization Details Recorded Time Malignant tumor of colon 812935846 Completed 202302/03/2024 Kayleen villarrela [facility] 10:53:45 Problem Notes None recorded. Procedures Surgical History Date Name Laterality Status Provider Name and Address Organization Details Recorded Time 2 procedure on heart completed Kayleen LOMELI [facility] 02/03/2024 10:54:15 6 procedure on colon completed Kayleen LOMELI [facility] 02/03/2024 10:54:06 Imaging Results None recorded. Procedure Notes None recorded. Medical Equipment None Reported. Allergies Allergen ID Allergen Name Allergen Category Reaction Reaction Severity Criticality Documentation Date Start Date Code Code System Note Provider Name and Address Organization Details Recorded Time 8384 Product containin g penicilli n (product) medicatio n Not available Not available Not available 02/03/2024 51758 8001 SNOMED Kayleen villarreal [facility] 4 11:13:30 Medications Name Sig [...] SNOMED-CT Code Diagnosis ICD10 Code Diagnosis Note 43553 Carlos mcgee MD [facility] [address] [place] [address] 02/03/2024 10:24:21 02/03/2024 11:46:21 Impacted cerumen in left ear 8521151329 065207 H61.22 Removed today Sensorineu ral hearing loss of bilateral ears 775786781 H90.3 Tymps WNL AUAudio - WNL sloping to SNHL AUCleared for hearing aids Bilateral disorder of ears 9932618862 342566 H93.8X3 Reassured no evidence of fluid or infection Health Concerns Section Related Observation LastModified by Organization Detai ls LastModified Time None Recorded Concern Status LastModified by Organization Details LastModified Time None Recorded Advance Directives Directive None Recorded Payers Insurance Date Sequence Insurance Name Policy Number Policy Resendiz Covered Member ID Resendiz Member ID Guarantor Name 04/07/2024 1 [place] Abel Guzman [id number] Abel Guzman 04/07/2024 2 [facility] [facility] (MEDICARE SUPPLEMENT) [id number] Abel Guzman [id number] Abel Megan 04/07/2024 2 [facility] 2 (MEDICARE SUPPLEMENT) Abel Roman Megan [...] [place] [address] [facility] [address], [place], [address], [facility] 02/03/2024 11:41:45
--- OUTSIDE RECORDS SUMMARY | 2025-06-22 07:41 | XMS_ITS | Patient Health Record ---
Author Organization Hansel Hussein III, MD Address [address] [place] [address] Care Team Providers Care Stroke Program Coordinator Name Role Phone Bandar Coronado MD Primary Care Provider Unavaila Hansel Rodriguez Unavailable [phone] WILSON STARKS MD Unavailable Unavailable Allergies Allergen [...] Problem Status W/U Status Risk Notes Problem 179441586 Overweight (E66.3) Active confirmed His body mass index is 27 and I have recommended weight loss through exercise and diet restricted in fat calories in sodium. Problem 731201232 GERD (gastroesophageal reflux disease) (K21.9) Active confirmed His reflexes well controlled with dknd-pak-doclo er medication. Problem 81820251 Congenital spondylolisthesis (Q76.2) Active confirmed Problem 754798901 BPH (benign prostatic hyperplasia) (N40.0) Active confirmed He rises once or twice a night but is satisfied with this level of control and does not require more medication. Problem 51441872 Lumbosacral spondylosis without myelopathy (M47.817) Active confirmed His back pain is mild and has not been troubling him lately. No treatment is necessary. Problem 608565670 Malignant neopla sm of right colon (C18.2) [...] NGS [address] [place] [address] [id number] Abel Walters Self - patient is the insured [facility] [address] [place], [place] [id number] [phone] [id number] Abel Walters Self - patient is [...]
--- NOTE | 2025-06-22 07:43 | CA_ITS ---
Acquisition Time: 2025-06-22 08:03:41 Total Exercise Time: 00:07:30 Test Indications: I25.10 Medications: SEE H&P Protocol: ESTHER Max HR: 123 BPM 84% of Pred: 145 BPM Max BP: 144/70 mmHG Max Work Load: 9.2 METS Exercise stress test with exercise 7 mins 30 secs of Esther Protocol, achieving 84% MPHR, with reports of SOB, no chest pain, with isolated PACs and PVCs, with normotensive response to exercise. Without any EKG changes meeting criteria for ischemia. In recovery, pt's breathing returned to baseline. Nuclear images pending. Test reviewed with Dr. Schilling. Referred By: Kenan Aguilar Electronically Signed By: Alexey Hicks
== END ==
LOC: HO.CARD 07:38
PROVIDERS: PCP Physician Assistant; Visit Provider Internal Medicine Cardiovascular Disease
DX: I25.10 Atherosclerotic heart disease of native coronary artery without angina pectoris (principal); R07.9 Chest pain, unspecified; Z95.5 Presence of coronary angioplasty implant and graft
CPT/HCPCS: 78452; 93017; A9500

== ENCOUNTER → 2025-06-22 07:43 | Outpatient (BNV) | payer MEDICARE, SELFPAY ==
[2023-05-06 08:19] VITALS: BP 120/60; BP 120/65; BMI 27.3
== END ==
PROVIDERS: PCP Physician Assistant
DX: I49.1 Atrial premature depolarization (principal); I49.3 Ventricular premature depolarization; R06.02 Shortness of breath
CPT/HCPCS: 78452; 93016; 93018

== ENCOUNTER 2025-08-03 09:34 | Outpatient (AMB) | payer MEDICARE, SELFPAY ==
[2023-05-06 08:19] VITALS: BP 120/60; BP 120/65; BMI 27.3
--- NOTE | 2025-08-03 09:46 | A.OFFVIS_ITS ---
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 He is a patient of Dr. Coronado. Seen for the following urologic conditions - nephrolithiasis and renal cysts - lower urinary tract symptoms Had recent change in PSA Discussed elevation JAS 1+ normal Start finasteride Nephrolithiasis Asymptomatic Imaging - 12/22 renal ultrasound with bilateral simple cyst and 6 mm stone - 11/21 renal ultrasound right renal cysts ranging from 1.1-4.4 cm stable since prior investigation, no stone seen - 02/21 renal ultrasound right renal cysts with 2 small stones on left - 02/22 renal ultrasound 2 small stones left 3 mm unchanged Lower urinary tract symptoms Minimal issue with voiding parameters PSA - 12/21 2.8, 08/22 2.4, 02/21 3.1, 02/22 2.9, 04/25 4.7 PFSH Medical History (Updated 08/03/25 @ 10:17 by Zoltan Stafford MD) Benign prostatic hyperplasia with lower urinary tract symptoms Painless jaundice Screening for hyperlipidemia Screening for diabetes mellitus Renal cyst Rectal bleeding Other obstructive and reflux uropathy Genetic testing Family history of pancreatic cancer History of colon cancer Surgical History Stented coronary artery History of colon resection (~12/14/14) History of colonoscopy (~10/18/14) Family History Father History of heart disease Mother History of colon cancer Brother History of liver cancer History of pancreatic cancer Sister History of lung cancer Daughter History of breast cancer Social History Housing: House Alcohol intake: current Alcohol intake frequency: a few times a month Patient Tobacco Use Status: Never used Tobacco e-Cigarette/Vaping Use: Never Used Second Hand Smoke Exposure: No service: No Current occupational status: retired Cognitive needs: No Hearing needs: No Vision needs: Yes (reading) Review of Systems Const Denies chills and Denies fever(s) Card Reports no additional complaints and Denies syncope Resp Denies cough GI Denies abdominal pain and Denies heartburn Reports as per HPI and Denies change in libido Neuro Denies syncope Psych Denies change in libido Endo Denies change in libido Physical Exam Const General: cooperative, healthy appearing, comfortable and no acute distress Orientation/consciousness: patient oriented x3 HEENT Face and sinus: Yes normal facial exam Mouth: moist mucous membranes Neck Neck: Yes normal visual inspection, Yes full ROM and Yes trachea midline Chest Chest palpation & inspection: normal inspection of the chest Resp Effort & Inspection: normal respiratory effort, able to speak in complete sentences and no respiratory distress GI Inspection: Yes normal to inspection Rectal Exam - Male: Yes normal sphincter tone and Yes prostate normal Male General Exam: Yes normal external exam Penis: normal penis and circumcised Meatus: meatus normal Scrotum: scrotum normal Testes: Testes normal Back/Spine/Pelvis Cervical Spine: normal cervical lordosis Thoracic/Lumbar Spine: thoracic and lumbar spine normal to inspection Skin General skin exam: no rashes or lesions noted Neuro General: patient oriented x3, gait normal, tone normal and moves all extremities Extrem General: Yes normal to inspection and Yes capillary refill normal Assessment & Plan Assessment & Plan (1) Elevated PSA: Code(s): R97.20 - Elevated prostate specific antigen [PSA] Category: Medical (2) Benign prostatic hyperplasia with lower urinary tract symptoms: Code(s): N40.1 - Benign prostatic hyperplasia with lower urinary tract symptoms Category: Medical Plan 1. Elevated Prostate-Specific Antigen (Psa) Level - Start finasteride. - Repeat PSA in 4-6 months. 2. Prostate Enlargement - Perform digital rectal exam. - Monitor for abnormalities. Discussion Notes I discussed with the patient the elevated PSA level, which is at the upper end of normal for his age. We talked about starting finasteride to shrink the prostate and repeating the PSA test in four to six months to monitor changes. I explained that the digital rectal examination showed no suspicious findings, which is reassuring. We also discussed the lack of family history of prostate issues and the implications of age on prostate cancer risk. Patient Instructions - Start taking finasteride as prescribed. - Schedule a follow-up appointment in four to six months for repeat PSA testing. - Report any new urinary symptoms or changes to your healthcare provider. Orders: Orders US bladder Today R97.20 - Elevated prostate specific antigen [PSA] PSA,Total (Free>4and<10) 4 Months R97.20 - Elevated prostate specific antigen [PSA] Medications: New finasteride 5 mg PO DAILY 90 tabs 1RF 90 days R97.20 - Elevated prostate specific antigen [PSA] Patient Instructions: This note is constructed using voice recognition software. While every effort has been made to ensure accuracy bar hostess errors may have been included. Imaging studies, laboratory and physical exam results were discussed and reviewed in detail. No major barriers to patient understanding were identified. An opportunity to ask questions regarding the treatment plan was provided. All questions were answered. The patient expressed understanding and agreement with the above treatment plan. The patient is aware they should contact our office by phone for worsening of their current condition or the appearance of new urologic symptoms. Compliance is encouraged with any medications and followup testing that is ordered. It is a privilege to participate in the urologic care of your patient. If you have any questions or concerns regarding treatment for the above conditions, or other urologic issues, please do not hesitate to contact me. The office telephone contact is [phone]. Sincerely, Dr Zoltan Stafford MD, [facility] - Urology Compassionate Specialist Care for the Genitourinary System Coding Level of Care Code Est Pt Level 4 (06105) Diagnoses Elevated PSA R97.20 Benign prostatic hyperplasia with lower urinary tract symptoms N40.1
--- OUTSIDE RECORDS SUMMARY | 2025-08-03 10:38 | XMS_ITS | Patient Health Record ---
Author Organization [facility] Christopher mcgee [place] Address [address] [place] [address] Care Team Providers Care Entry Level Electrician Name Role Phone Hakeem Noble Primary Care Provider Unavailab rayna Alexandrea Pollard Unavailable [phone] Allergies Allergen (clinical drug ingredient) Drug/Non Drug [...] pressure diastolic 70 mm Hg 03/18/2025 Height [id number] in 03/18/2025 Blood pressure systolic 120 mm Hg 03/18/2025 Weight 195 lbs 03/18/2025 BMI 27.19 kg/m2 03/18/2025 Encounters Encounter Location Date Provider Diagnosis [facility] [place] [address] [place] [address] 03/18/2025 Alexandrea Black Pain in left foot [...] Inc [address] [place] [address] [phone] [id number] Abel Guzman Self - patient is the insured [facility] [facility] [address] [place] [address] [phone] [id number] Abel Guzman Self - patient is the insured Medical (General) History Medical History History ICD Code Cancer covid-19 Headaches/Migraines Reflux ( GERD) Chicken pox Surgical History Surgery Date(Month/Year) colon resection 12/14/2014 Heart stent Implant 05/31/222 carpal tunnel surgery left 04/13/2014 trigger finger release right 11/11/2012
--- OUTSIDE RECORDS SUMMARY | 2025-08-03 10:38 | XMS_ITS | Patient Health Record ---
Author Organization Hansel Hussein III, MD Address [address] [place] [address] Care Team Providers Care Accountant Supervisor Name Role Phone Bandar Coronado MD Primary Care Provider Unavaila Hansel Rodriguez Unavailable [phone] WILSON STARKS MD Unavailable Unavailable Allergies Allergen [...] Problem Status W/U Status Risk Notes Problem 373653338 Overweight (E66.3) Active confirmed His body mass index is 27 and I have recommended weight loss through exercise and diet restricted in fat calories in sodium. Problem 436498913 GERD (gastroesophageal reflux disease) (K21.9) Active confirmed His reflexes well controlled with [id number] er medication. 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 Problem 24028193 Lumbosacral spondylosis without myelopathy (M47.817) Active confirmed His back pain is mild and has not been troubling him lately. No treatment is necessary. 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
== END 2025-08-03 10:22 | disposition home or self-care (01) ==
LOC: HO.HUSH 09:34
PROVIDERS: PCP Physician Assistant; Visit Provider Urology
DX: R97.20 Elevated prostate specific antigen [PSA] (principal); N40.1 Benign prostatic hyperplasia with lower urinary tract symptoms
CPT/HCPCS: 99214

== ENCOUNTER → 2025-08-03 09:34 | Outpatient (BNVA) | payer MEDICARE, SELFPAY ==
[2023-05-06 08:19] VITALS: BP 120/60; BP 120/65; BMI 27.3
== END ==
PROVIDERS: PCP Physician Assistant; Visit Provider Urology
DX: R97.20 Elevated prostate specific antigen [PSA] (principal); N40.1 Benign prostatic hyperplasia with lower urinary tract symptoms
CPT/HCPCS: 99212

== ENCOUNTER 2025-09-07 14:24 | Outpatient (AMB) | payer MEDICARE, SELFPAY ==
[2023-05-06 08:19] VITALS: BP 120/60; BP 120/65; BMI 27.3
--- NOTE | 2025-09-07 14:27 | A.OFFPC_ITS ---
Vital Signs 09/07/25 14:40 Height 5 ft 11 in Weight 190 lb 2 oz BMI 26.5 BP 126/84 Blood Pressure Location Lt brachial Position Sitting Pulse 68 Pulse Source Pulse Oximeter Temp 97.3 F Temp Source Temporal Artery Scan Pulse Oximetry (%) 97 Oxygen Delivery Method Room Air Intake Visit Reasons: both ears are blocked Allergies amoxicillin Allergy (Unknown, Verified 09/07/25 14:42) Unknown shellfish derived Adverse Reaction (Intermediate, Verified 09/07/25 14:42) VOMITING Tobacco use date assessed: 09/07/25 Fall risk assessment: No Falls in past year Last assessed Fall Risk: 09/07/25 Dental Screening Dental Screen Date: 09/07/25 Did you have a dental visit in the last 12 months?: Yes Did you have a dental problem in the last 6 months where you did not have access to dental care?: No Was dental information given to patient?: Patient has dentist HPI HPI Comments 2 History of Present Illness Details The patient is a 74-year-old male presenting with blocked ears and hearing difficulties. He reports both ears feeling blocked for a couple of weeks, initially thought to be due to water from the shower. He has a history of cerumen impaction, previously managed with ear flushing and manual removal. The patient notes a gradual worsening of hearing, with difficulty hearing close sounds like fingers clicking. A prior hearing test over a year and a half ago recommended hearing aids, which he did not pursue. [facility] Medical History Benign prostatic hyperplasia with lower urinary tract symptoms Painless jaundice Screening for hyperlipidemia Screening for diabetes mellitus Renal cyst Rectal bleeding Other obstructive and reflux uropathy Genetic testing Family history of pancreatic cancer History of colon cancer Surgical History Stented coronary artery History of colon resection (~12/14/14) History of colonoscopy (~10/18/14) Family History Father History of heart disease Mother History of colon cancer Brother History of liver cancer History of pancreatic cancer Sister History of lung cancer Daughter History of breast cancer Social History Housing: House Alcohol intake: current Alcohol intake frequency: a few times a month Patient Tobacco Use Status: Never used Tobacco e-Cigarette/Vaping Use: Never Used Second Hand Smoke Exposure: No service: No Current occupational status: retired Cognitive needs: No Hearing needs: No Vision needs: Yes (reading) Questionnaire PHQ-9 Over the last 2 weeks, how often have you been bothered by any of the following problems? 1. Little interest or pleasure in doing things: not at all 2. Feeling down, depressed, or hopeless: not at all 3. Trouble falling or staying asleep, or sleeping too much: not at all 4. Feeling tired or having little energy: not at all 5. Poor appetite or overeating: not at all 6. Feeling bad about yourself - or that you are a failure or have let yourself or your family down: not at all 7. Trouble concentrating on things, such as reading the newspaper or watching television: not at all 8. Moving or speaking so slowly that other people could have noticed. Or the opposite - being so fidgety or restless that you have been moving around a lot more than usual: not at all 9. Thoughts that you would be better off or of hurting yourself in some way: not at all Total score: 0 Source: Developed by Drs. Hansel Daniel, Rosemary Rodriguez, Ferdinand Tineo and colleagues, with an educational mallika from [employer]. Thrive Questionnaire Date Thrive assessed: 09/05/25 I am a: Patient What is your living situation today?: I have a steady place to live Within the past 12 months, did the food you bought not last and you didn't have the money to get more?: Never true Within the past 12 months, did you worry whether your food would run out before you got money to buy more?: Often true Do you have trouble paying for medicines?: No Do you have trouble getting transportation to medical appointments?: No Do you have trouble paying your heating and electricity bill?: No Do you have trouble taking care of your child, family member or friend?: No Do you have trouble with day-to-day activities such as bathing, preparing meals, shopping, managing finances, etc.?: No Are you currently unemployed and looking for a job?: No Are you interested in more education?: Yes Please select the resources that you would like help with: None Currently or been in a relationship where the following occur: I choose not to answer THRIVE Score: 1 AUDIT C Alcohol Use Questionnaire (AUDIT-C) 1. How often do you have a drink containing alcohol?: 2-4 times a month 2. How many drinks containing alcohol do you have on a typical day when you are drinking?: 1 or 2 3. How often do you have six or more drinks on one occasion?: Never Total Score: 2 FELICIA-7 AMB Questionnaire FELICIA-7 Date FELICIA - 7 assessed: 03/16/25 Feeling nervous, anxious, or on edge: 0 = Not at all Not being able to stop or control worryin = Not at all Worrying too much about different things: 0 = Not at all Trouble relaxin = Not at all Being so restless that it is hard to sit still: 0 = Not at all Becoming easily annoyed or irritable: 0 = Not at all Feeling afraid as if something awful might happen: 0 = Not at all Total FELICIA-7 score (0-4 normal; 5-9 mild; 10-14 moderate; 15-21 severe): 0 Source: Developed by Drs. Hansel Daniel, Rosemary Rodriguez, Ferdinand Tineo and colleagues, with an educational mallika from [employer]. Physical exam (Primary Care) Vital Signs: Last Vital Signs Temp 97.3 F 09/07/25 14:40 Pulse 68 09/07/25 14:40 BP 126/84 09/07/25 14:40 Pulse Ox 97 09/07/25 14:40 Oxygen Delivery Method Room Air 09/07/25 14:40 BMI result Body Mass Index 26.5 Tobacco/Smoking Status: Tobacco use Status Tobacco use date assessed 09/07/25 09/07/25 14:43 Patient Tobacco Use Status Never used Tobacco 09/07/25 14:27 e-Cigarette/Vaping Use Never Used 09/07/25 14:27 PHQ-9: PHQ-9 Score PHQ-9: Total score 0 09/07/25 14:43 Thrive Assessment: Date of Thrive Assessment Date Thrive assessed 09/05/25 09/07/25 14:27 Currently or been in a relationship where the following occur: I choose not to answer Const Other: Pertinent findings are in BOLD GENERAL APPEARANCE NAD, activity normal for age, well developed/ well nourished, no cyanosis, pallor, or diaphoresis. EYES lids/conjunctiva normal. EARS/NOSE/THROAT Mucous membranes moist, nares normal, lips/teeth normal uvula midline without oral pharyngeal erythema, exudate or swelling TMs normal bilaterally. No lymphangitis/lymphedema. HEAD/NECK normocephalic atraumatic, no facial trauma, neck is supple. Ear canals clear. RESPIRATORY respiratory effort normal, speaks in full sentences, no tripod position, no accessory muscle use. Lungs clear to auscultation without rhonchi, wheezes, rales CARDIAC Regular rate and rhythm, no edema. ABDOMINAL Soft, ND/NT. No evidence of fluid wave. No pulsatile masses on exam, rebound tenderness, Erickson sign or pain over Mcburney's point. MUSCLES/EXTREMITIES No abnormal range of motion, no swelling. SKIN Warm, pink and dry. No rashes, dermatoses, petechiae or lesions. NEUROLOGICAL Speech is clear and appropriate. Normal level of consciousness. Gait and coordination are normal. 5/5 strength in all extremities. PSYCH Normal mood and affect. Judgement/competence is appropriate Coding Level of Care Code Est Pt Level 3 (72320) Procedure Only Diagnoses Hearing loss H91.90 Time Spent (min) 30 Assessment & Plan Assessment & Plan (1) Hearing loss: Code(s): H91.90 - Unspecified hearing loss, unspecified ear Category: Medical Plan: - Ear flushing in clinic with no cerumen impaction. - Referral to Speech and Hearing for a comprehensive hearing evaluation and potential hearing aid fitting. Plan I discussed with the patient the findings of minimal cerumen and the plan to perform ear flushing to alleviate symptoms. We also talked about the referral to Speech and Hearing for a comprehensive evaluation and potential hearing aid fitting, given the history of hearing difficulties. Orders: Referrals Speech and Hearing Referral H91.90 - Unspecified hearing loss, unspecified ear
[2025-09-07 14:40] VITALS: BP 126/84; PULSE 68; TEMP 36.3; O2SAT 97; BMI 26.5
--- OUTSIDE RECORDS SUMMARY | 2025-09-07 17:46 | XMS_ITS | Patient Health Record ---
Author Organization Hansel Hussein III, MD Address [address] [address] Care Team Providers Care Bell Valet Name Role Phone Bandar Coronado MD Primary Care Provider UnavailDr. Hansel Augustin III Unavailable WILSON STARKS MD Unavailable Unavailable Allergies Allergen [...] Problem Status W/U Status Risk Notes Problem 030801647 Overweight (E66.3) Active confirmed His body mass index is 27 and I have recommended weight loss through exercise and diet restricted in fat calories in sodium. Problem 201196828 GERD (gastroesophageal reflux disease) (K21.9) Active confirmed His reflexes well controlled with vgfx-str-seleu er medication. Problem 25822795 Congenital spondylolisthesis (Q76.2) Active confirmed Problem 537030013 BPH (benign prostatic hyperplasia) (N40.0) Active confirmed He rises once or twice a night but is satisfied with this level of control and does not require more medication. Problem 68361463 Lumbosacral spondylosis without myelopathy (M47.817) Active confirmed His back pain is mild and has not been troubling him lately. No treatment is necessary. 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 12/14/2014 sinus procedure [address] Starks 04/2020
--- OUTSIDE RECORDS SUMMARY | 2025-09-07 17:46 | XMS_ITS | Patient Health Record ---
Author Organization [facility] m[facility]gee [place] Address [address] [place] [address] Care Team Providers Care Engineering Program Manager Name Role Phone Hakeem Noble Primary Care Provider Unavailab rayna Alexandrea Pollard Unavailable [phone] Allergies Allergen (clinical drug ingredient) Drug/Non Drug [...] pressure diastolic 70 mm Hg 03/18/2025 Height [id number] in 03/18/2025 Blood pressure systolic 120 mm Hg 03/18/2025 Weight 195 lbs 03/18/2025 BMI 27.19 kg/m2 03/18/2025 Encounters Encounter Location Date Provider Diagnosis [facility] [place] [address] [place] [address] 03/18/2025 Alexandrea Black Pain in left foot [...] Inc [address] [place] [address] [phone] [id number] Abel Guzman Self - patient is the insured [facility] [address] [place] [address] [phone] [id number] Abel Guzman Self - patient is the insured Medical (General) History Medical History History ICD Code Cancer covid-19 Headaches/Migraines Reflux ( GERD) Chicken pox Surgical History Surgery Date(Month/Year) colon resection 12/14/2014 Heart stent Implant 05/31/222 carpal tunnel surgery left 04/13/2014 trigger finger release right 11/11/2012
== END 2025-09-07 15:03 | disposition home or self-care (01) ==
LOC: HO.HMCH 14:25
PROVIDERS: PCP Physician Assistant; Visit Provider Internal Medicine
DX: H91.93 Unspecified hearing loss, bilateral (principal)

== ENCOUNTER → 2025-09-07 14:24 | Outpatient (BNVA) | payer MEDICARE, SELFPAY ==
[2023-05-06 08:19] VITALS: BP 120/60; BP 120/65; BMI 27.3
== END ==
PROVIDERS: PCP Physician Assistant; Visit Provider Internal Medicine
DX: H91.93 Unspecified hearing loss, bilateral (principal)
CPT/HCPCS: 69209; 96127; 99212

== ENCOUNTER 2025-09-15 08:03 | Outpatient (AMB) | payer MEDICARE, SELFPAY ==
[2023-05-06 08:19] VITALS: BP 120/60; BP 120/65; BMI 27.3
[2025-09-15 08:09] VITALS: BP 128/76; PULSE 69; TEMP 36.2; O2SAT 97; BMI 26.8
--- NOTE | 2025-09-15 08:09 | MHC.PC.OV ---
Vital Signs 09/15/25 08:09 Height 5 ft 11 in Weight 192 lb 4 oz BMI 26.8 BP 128/76 Blood Pressure Location Lt brachial Position Sitting Pulse 69 Pulse Source Pulse Oximeter Temp 97.1 F Temp Source Temporal Artery Scan Pulse Oximetry (%) 97 Oxygen Delivery Method Room Air Intake Visit Reasons: f/u CAD/ HTN Allergies amoxicillin Allergy (Unknown, Verified 09/15/25 08:13) Unknown shellfish derived Adverse Reaction (Intermediate, Verified 09/15/25 08:13) VOMITING Medication List - Last Reconciled 09/15/25 by Hakeem Noble PA-C aspirin (Adult Aspirin Regimen) 81 mg PO DAILY carvedilol 6.25 mg PO Q12H evolocumab (Repatha SureClick) 140 mg subcut Q2W finasteride 5 mg PO DAILY 90 days omeprazole 20 mg PO DAILY rosuvastatin 10 mg PO DAILY Tobacco use date assessed: 09/15/25 Fall risk assessment: No Falls in past year Last assessed Fall Risk: 09/15/25 Dental Screening Dental Screen Date: 09/15/25 Did you have a dental visit in the last 12 months?: Yes Did you have a dental problem in the last 6 months where you did not have access to dental care?: No Was dental information given to patient?: Patient has dentist HPI f/u CAD/ HTN HPI Details Patient is a 74-year-old male here today for a follow-up visit. Patient has a past medical history significant for coronary artery disease, paroxysmal AFib, hypertension hyperlipidemia. Concern--> patient reports he has been having difficulty hearing over the last few months. Has been seen for this last week and will be sent for hearing exam to evaluate for sensorineural hearing loss. Of note your exam today in office has been on without any cerumen impaction. .. Coronary artery disease: Does have 3 coronary artery stents. Followed by [facility]. Continues on statin therapy along with Repatha with goal LDL optimally below 70. He otherwise denies any chest discomfort, dizziness or heart palpitations. Blood pressure seems to be well controlled with current antihypertensive med. .. BPH: Followed by [facility] and continues on finasteride with decent affect. .. FOR[facility] Medical History Benign prostatic hyperplasia with lower urinary tract symptoms Painless jaundice Screening for hyperlipidemia Screening for diabetes mellitus Renal cyst Rectal bleeding Other obstructive and reflux uropathy Genetic testing Family history of pancreatic cancer History of colon cancer Surgical History Stented coronary artery History of colon resection (~12/14/14) History of colonoscopy (~10/18/14) Family History Father History of heart disease Mother History of colon cancer Brother History of liver cancer History of pancreatic cancer Sister History of lung cancer Daughter History of breast cancer Social History Housing: House Alcohol intake: current Alcohol intake frequency: a few times a month Patient Tobacco Use Status: Never used Tobacco e-Cigarette/Vaping Use: Never Used Second Hand Smoke Exposure: No service: No Current occupational status: retired Cognitive needs: No Hearing needs: No Vision needs: Yes (reading) Questionnaire PHQ-9 Over the last 2 weeks, how often have you been bothered by any of the following problems? 1. Little interest or pleasure in doing things: not at all 2. Feeling down, depressed, or hopeless: not at all 3. Trouble falling or staying asleep, or sleeping too much: not at all 4. Feeling tired or having little energy: not at all 5. Poor appetite or overeating: not at all 6. Feeling bad about yourself - or that you are a failure or have let yourself or your family down: not at all 7. Trouble concentrating on things, such as reading the newspaper or watching television: not at all 8. Moving or speaking so slowly that other people could have noticed. Or the opposite - being so fidgety or restless that you have been moving around a lot more than usual: not at all 9. Thoughts that you would be better off or of hurting yourself in some way: not at all Total score: 0 Depression Screening Interpretation: Negative Depression Screening Done: Yes 63065 - PHQ-9 Billing: Yes Source: Developed by Drs. Hansel Daniel, Rosemary Rodriguez, Ferdinand Tineo and colleagues, with an educational mallika from [employer]. Thrive Questionnaire Date Thrive assessed: 09/05/25 I am a: Patient What is your living situation today?: I have a steady place to live Within the past 12 months, did the food you bought not last and you didn't have the money to get more?: Never true Within the past 12 months, did you worry whether your food would run out before you got money to buy more?: Often true Do you have trouble paying for medicines?: No Do you have trouble getting transportation to medical appointments?: No Do you have trouble paying your heating and electricity bill?: No Do you have trouble taking care of your child, family member or friend?: No Do you have trouble with day-to-day activities such as bathing, preparing meals, shopping, managing finances, etc.?: No Are you currently unemployed and looking for a job?: No Are you interested in more education?: Yes Please select the resources that you would like help with: None Currently or been in a relationship where the following occur: I choose not to answer THRIVE Score: 1 AUDIT C Alcohol Use Questionnaire (AUDIT-C) 1. How often do you have a drink containing alcohol?: 2-4 times a month 2. How many drinks containing alcohol do you have on a typical day when you are drinking?: 1 or 2 3. How often do you have six or more drinks on one occasion?: Never Total Score: 2 FELICIA-7 AMB Questionnaire FELICIA-7 Date FELICIA - 7 assessed: 03/16/25 Feeling nervous, anxious, or on edge: 0 = Not at all Not being able to stop or control worryin = Not at all Worrying too much about different things: 0 = Not at all Trouble relaxin = Not at all Being so restless that it is hard to sit still: 0 = Not at all Becoming easily annoyed or irritable: 0 = Not at all Feeling afraid as if something awful might happen: 0 = Not at all Total FELICIA-7 score (0-4 normal; 5-9 mild; 10-14 moderate; 15-21 severe): 0 Source: Developed by Drs. Hansel Daniel, Rosemary Rodriguez, Ferdinand Tineo and colleagues, with an educational mallika from [employer]. Review of Systems Const Denies headache(s) Eyes Denies loss of vision ENT Denies vertigo, Denies dizziness, Denies headache(s) and Denies sore throat Card Denies chest pain, Denies leg edema and Denies lightheadedness Resp Denies cough, Denies hemoptysis and Denies wheezing GI Denies abdominal pain, Denies melena, Denies constipation, Denies diarrhea and Denies vomiting Denies dysuria, Denies urinary frequency and Denies urinary urgency Musc Denies arthralgias, Denies joint swelling, Denies numbness and Denies tingling Neuro Denies Abnormal speech present, Denies behavioral changes, Denies vertigo, Denies dizziness, Denies headache(s), Denies loss of vision, Denies memory loss, Denies numbness and Denies tingling Psych Denies anxiety, Denies behavioral changes, Denies depression, Denies memory loss and Denies panic attacks Jem/Lymph Denies easy bleeding and Denies easy bruising Aller/Immun Denies wheezing Physical exam (Primary Care) Vital Signs: Last Vital Signs Temp 97.1 F 09/15/25 08:09 Pulse 69 09/15/25 08:09 BP 128/76 09/15/25 08:09 Pulse Ox 97 09/15/25 08:09 Oxygen Delivery Method Room Air 09/15/25 08:09 BMI result Body Mass Index 26.8 Tobacco/Smoking Status: Tobacco use Status Tobacco use date assessed 09/15/25 09/15/25 08:12 Patient Tobacco Use Status Never used Tobacco 09/15/25 08:12 e-Cigarette/Vaping Use Never Used 09/15/25 08:12 PHQ-9: PHQ-9 Score PHQ-9: Total score 0 09/15/25 08:27 Depression Screening Interpretation: Negative Thrive Assessment: Date of Thrive Assessment Date Thrive assessed 09/05/25 09/15/25 08:12 Currently or been in a relationship where the following occur: I choose not to answer Const General: healthy appearing, no acute distress, alert and awake Nutritional Appearance: well nourished Orientation/consciousness: oriented to person, oriented to place and oriented to time HENMT Ears: TM's normal bilaterally General nose exam: Normal nasal mucous membranes and turbinates present Eyes Conjunctivae: conjunctivae normal Sclerae: sclerae normal Pupils: Equal, round and reactive pupils present Neck Neck: Yes no lymphadenopathy and Yes no JVD Thyroid: Thyroid normal Carotids: no bruits Resp Effort & Inspection: normal respiratory effort and not tachypneic Auscultation: no crackles, no rales, no rhonchi and no wheezes Cardio Rate: regular rate Rhythm: regular rhythm Heart sounds: no murmurs and normal S1 and S2 GI Palpation (GI): Soft to palpation, nontender, no hepatomegaly and no splenomegaly Auscultation: normal bowel sounds Skin General skin exam: no rashes or lesions noted and dry skin Neuro General: oriented to person, oriented to place and oriented to time Cranial nerves: Yes Equal, round and reactive pupils present Speech: No Abnormal speech present Gait exam (Neuro): Normal gait present Motor exam (neuro): no tremor noted Extrem Right upper extremity: full ROM Left upper extremity: full ROM Right lower extremity: full ROM; no edema Left lower extremity: full ROM; no edema Psych Mental Status: mental status grossly normal Speech and movement: Normal speech and movement present Affect: normal affect Attitude: cooperative Thought process: Normal thought process present Office Procedures Flu Questionnaire Does the patient have a severe egg allergy?: No Does the patient have severe life threatening allergies?: No Does the patient have a fever or illness today?: No Has the patient ever had Guillain-[place] Syndrome?: No Has the patient ever had any past reaction to a flu shot?: No Immunizations Fluarix 7360-9682 (PF) 45 mcg (15 mcg x 3)/0.5 mL IM syringe Performing Provider: Hakeem Noble PA-C [facility] Administered by: Ju Bhardwaj CMA on 09/15/25 08:28 Dose Route Admin Location Dispensed Lot Number Expiration Date [facility] 0.5 mL IM Left Deltoid 0.5 mL [id number] 05/31/26 [id number] [employer] VIS Given Date VIS Provided VIS Publication Date 09/15/25 Single Vaccine 25 Eligibility Eligibility Date Funding Source Not [facility] Eligible 09/15/25 Private Coding Level of Care Code Est Pt Level 4 (48229) Diagnoses Atherosclerosis of [place] coronary artery of [place] heart without angina pectoris I25.10 Associated angina: without angina Coronary Disease-Associated Artery/Lesion type: [place] artery [place] vs. transplanted heart: [place] heart Primary hypertension I10 Hypertension type: primary hypertension Elevated PSA R97.20 Sensorineural hearing loss (SNHL) of both ears H90.3 Hearing loss type: sensorineural Laterality: bilateral Additional Codes PHQ-9 - 40117 - PHQ-9 Billing: Yes ([id number]) Assessment & Plan Assessment & Plan (1) CAD (coronary atherosclerotic disease): Code(s): I25.10 - Atherosclerotic heart disease of [place] coronary artery without angina pectoris Category: Medical Qualifiers: Associated angina: without angina Coronary Disease-Associated Artery/Lesion type: [place] artery [place] vs. transplanted heart: [place] heart Qualified Code(s): I25.10 - Atherosclerotic heart disease of [place] coronary artery without angina pectoris Plan: Patient followed by [facility], continues on statin therapy and Repatha. Goal LDL to be below 70. He otherwise denies any chest pain, shortness of breath or palpitations. Continues on carvedilol with good control of his blood pressure. (2) Hypertension: Code(s): I10 - Essential (primary) hypertension Category: Medical Qualifiers: Hypertension type: primary hypertension Qualified Code(s): I10 - Essential (primary) hypertension Plan: Patient's blood pressure today acceptable.. Patient's goal blood pressure to be below 140/90 (3) Elevated PSA: Code(s): R97.20 - Elevated prostate specific antigen [PSA] Category: Medical Plan: Patient noted to have elevated PSA. He is followed by [facility]. Continues on finasteride. He denies any urinary symptoms at this time. (4) Hearing loss: Code(s): H91.90 - Unspecified hearing loss, unspecified ear Category: Medical Qualifiers: Hearing loss type: sensorineural Laterality: bilateral Qualified Code(s): H90.3 - Sensorineural hearing loss, bilateral Plan: Ear exam benign today in office. Suspecting sensorineural hearing loss due to age. He is awaiting call from hearing center for hearing exam. Orders: Orders Microalbumin, Random (w Creat) Today I10 - Essential (primary) hypertension Lipid Panel Today I25.10 - Atherosclerotic heart disease of [place] coronary artery without angina pectoris Complete Blood Count no Diff Today I25.10 - Atherosclerotic heart disease of [place] coronary artery without angina pectoris Comprehensive [place]. Panel Fast Today I25.10 - Atherosclerotic heart disease of [place] coronary artery without angina pectoris Influenza 2523-1175 Immunization Today Z23 - Encounter for immunization Patient Instructions: Goal: Blood pressure to remain below 140/90, LDL to be optimally below 70 Barriers: Adherence to physical activity and healthy eating habits
--- OUTSIDE RECORDS SUMMARY | 2025-09-15 08:18 | XMS_ITS | Patient Health Record ---
Author Organization [facility] Christopher mcgee Vesper Address [address] [place] [address] Care Team Providers Care Manager Of Allied Health Services Name Role Phone Hakeem Noble Primary Care Provider Unavailab rayna Alexandrea Pollard Unavailable [phone] Allergies Allergen (clinical drug ingredient) Drug/Non Drug [...] pressure diastolic 70 mm Hg 03/18/2025 Height [id number] in 03/18/2025 Blood pressure systolic 120 mm Hg 03/18/2025 Weight 195 lbs 03/18/2025 BMI 27.19 kg/m2 03/18/2025 Encounters Encounter Location Date Provider Diagnosis [facility] [place] [address] [place] [address] 03/18/2025 Alexandrea Black Pain in left foot [...] Inc [address] [place] [address] [phone] [id number] Abel Guzman Self - patient is the insured [email or web address] [facility] [address] [place] [address] [phone] [id number] Abel Guzman Self - patient is the insured Medical (General) History Medical History History ICD Code Cancer covid-19 Headaches/Migraines Reflux ( GERD) Chicken pox Surgical History Surgery Date(Month/Year) colon resection 12/14/2014 Heart stent Implant 05/31/222 carpal tunnel surgery left 04/13/2014 trigger finger release right 11/11/2012
--- OUTSIDE RECORDS SUMMARY | 2025-09-15 08:18 | XMS_ITS | Patient Health Record ---
Author Organization Hansel Hussein III, MD Address [address] [place] [address] Care Team Providers Care Roving Hand Name Role Phone Bandar Coronado MD Primary [...] Problem Status W/U Status Risk Notes Problem 671202183 Overweight (E66.3) Active confirmed His body mass index is 27 and I have recommended weight loss through exercise and diet restricted in fat calories in sodium. Problem 611133235 GERD (gastroesophageal reflux disease) (K21.9) Active confirmed His reflexes well controlled with wwvi-liy-wdmau er medication. Problem 37966070 Congenital spondylolisthesis (Q76.2) Active confirmed Problem 525206740 BPH (benign prostatic hyperplasia) (N40.0) Active confirmed He rises once or twice a night but is satisfied with this level of control and does not require more medication. Problem 99586542 Lumbosacral spondylosis without myelopathy (M47.817) Active confirmed His back pain is mild and has not been troubling him lately. No treatment is necessary. Problem 380510198 Malignant neopla sm of right colon (C18.2) [...] End Date MEDICARE NGS [address] [facility] [place] [address] [id number] Abel Walters Self - patient is the insured [facility] [address] [place], [place] [id number] [phone] [id number] Abel Walters Self - patient is [...] 12/14/2014 sinus procedure [address] Stakrs 04/2020
== END 2025-09-15 08:29 | disposition home or self-care (01) ==
LOC: HO.HMCH 08:04
PROVIDERS: PCP Physician Assistant; Visit Provider Physician Assistant
DX: I25.10 Atherosclerotic heart disease of native coronary artery without angina pectoris (principal); I10 Essential (primary) hypertension; R97.20 Elevated prostate specific antigen [PSA]; H90.3 Sensorineural hearing loss, bilateral; Z23 Encounter for immunization

== ENCOUNTER → 2025-09-15 08:03 | Outpatient (BNVA) | payer MEDICARE, SELFPAY ==
[2023-05-06 08:19] VITALS: BP 120/60; BP 120/65; BMI 27.3
== END ==
PROVIDERS: PCP Physician Assistant; Visit Provider Physician Assistant
DX: I10 Essential (primary) hypertension (principal); I25.10 Atherosclerotic heart disease of native coronary artery without angina pectoris; I48.0 Paroxysmal atrial fibrillation; E78.5 Hyperlipidemia, unspecified; N40.0 Benign prostatic hyperplasia without lower urinary tract symptoms; R97.20 Elevated prostate specific antigen [PSA]; H90.3 Sensorineural hearing loss, bilateral; Z23 Encounter for immunization
CPT/HCPCS: 90471; 90656; 96127; 99212

== ENCOUNTER 2025-11-12 07:14 | Outpatient (REF) | payer MEDICARE, SELFPAY ==
[2023-05-06 08:19] VITALS: BP 120/60; BP 120/65; BMI 27.3
--- OUTSIDE RECORDS SUMMARY | 2025-11-12 07:17 | XMS_ITS | Patient Health Record ---
Author Organization [facility] Christopher mcgee Waka Address [address] [place] [address] Care Team Providers Care Food Service Assistant Name Role Phone Hakeem Noble Primary Care Provider Unavailab rayna Alexandrea Pollard Unavailable [phone] Allergies Allergen (clinical drug ingredient) Drug/Non Drug [...] pressure diastolic 70 mm Hg 03/18/2025 Height [id number] in 03/18/2025 Blood pressure systolic 120 mm Hg 03/18/2025 Weight 195 lbs 03/18/2025 BMI 27.19 kg/m2 03/18/2025 Encounters Encounter Location Date Provider Diagnosis [facility] [place] [address] [place] [address] 03/18/2025 Alexandrea Black Pain in left foot [...] Inc [address] [place] [address] [phone] [id number] Abel Guzman Self - patient is the insured [employer] [facility] [address] [place] [address] [phone] [id number] Abel Guzman Self - patient is the insured Medical (General) History Medical History History ICD Code Cancer covid-19 Headaches/Migraines Reflux ( GERD) Chicken pox Surgical History Surgery Date(Month/Year) colon resection 12/14/2014 Heart stent Implant 05/31/222 carpal tunnel surgery left 04/13/2014 trigger finger release right 11/11/2012
--- OUTSIDE RECORDS SUMMARY | 2025-11-12 07:17 | XMS_ITS | Patient Health Record ---
Author Organization Hansel Hussein III, MD Address [address] [place] [address] Care Team Providers Care Health Psychologist Name Role Phone Bandar Coronado MD Primary Care Provider UnavailDr. Hansel Augustin III Unavailable [phone] WILSON STARKS MD Unavailable Unavailable Allergies Allergen [...] Problem Status W/U Status Risk Notes Problem [id number] Overweight (E66.3) Active confirmed His body mass index is 27 and I have recommended weight loss through exercise and diet restricted in fat calories in sodium. Problem 248547862 GERD (gastroesophageal reflux disease) (K21.9) Active confirmed His reflexes well controlled with ocjs-oau-lldmd er medication. Problem 29514722 Congenital spondylolisthesis (Q76.2) Active confirmed Problem 466068961 BPH (benign prostatic hyperplasia) (N40.0) Active confirmed He rises once or twice a night but is satisfied with this level of control and does not require more medication. Problem 21603892 Lumbosacral spondylosis without myelopathy (M47.817) Active confirmed His back pain is mild and has not been troubling him lately. No treatment is necessary. Problem 169024116 Malignant neopla sm of right colon (C18.2) [...] End Date MEDICARE NGS [address] [facility] [place] [address] [id number] Abel Walters Self - patient is the insured [employer] [address] [place], [place] [phone] [id number] 7 Abel Walters Self - patient is [...]
[2025-11-12 07:48] LABS: Hematocrit 48.4 % (42.0-52.0); Hemoglobin 15.8 g/dl (14.0-18.0); Mean Corpuscular HGB Conc 32.6 g/dl (31.0-36.0); Mean Corpuscular Hemoglobin 31.7 pg (27.0-33.0); Mean Corpuscular Volume 97.2 fL (80.0-98.0); NRBC Abs Auto 0.000 X10*3/uL (0.0-0.012); NRBC Pct Auto 0.0 /100WBC (0.0-0.2); Platelet Count 198 X10*3/uL (160-400); Red Blood Count 4.98 X10*6/uL (4.60-5.80); White Blood Count 4.4 X10*3/uL (4.8-10.8)
[2025-11-12 08:09] LABS: Alanine Aminotransferase 23 U/L (0-40); Albumin Level 4.3 g/dL (3.5-5.0); Alkaline Phosphatase 80 U/L (39-117); Anion Gap 12 (12-20); Aspartate Amino Transferase 23 U/L (5-37); Blood Urea Nitrogen 15 mg/dL (9-16); Calcium 9.1 mg/dL (8.4-10.2); Carbon Dioxide 25 mmol/L (22-29); Chloride 107 mmol/L (96-108); Cholesterol 96 mg/dL (<200); Estimated Glomerular Filt Rate > 60; HDL Cholesterol 61 mg/dL (>40); Potassium 4.2 mmol/L (3.3-5.1); Sodium 140 mmol/L (135-145); Total Protein 6.6 g/dL (6.5-8.0); Triglycerides 48 mg/dL (<150)
[2025-11-12 08:25] LABS: PSA,Total (Free>4and<10) 2.27 ng/mL (0.00-4.00)
[2025-11-12 08:54] LABS: Microalbum/Creatinine Ratio Ur 6.9 ug/mg cr (<30)
== END 2025-11-12 07:15 | disposition home or self-care (01) ==
LOC: HO.LAB 07:14
PROVIDERS: Absent Provider Urology; PCP Physician Assistant; Visit Provider Physician Assistant
DX: I10 Essential (primary) hypertension (principal); I25.10 Atherosclerotic heart disease of native coronary artery without angina pectoris; R97.20 Elevated prostate specific antigen [PSA]; Z12.5 Encounter for screening for malignant neoplasm of prostate
CPT/HCPCS: 36415; 80053; 80061; 82043; 82570; 84153; 85027

== ENCOUNTER 2025-11-29 08:19 | Outpatient (REF) | payer MEDICARE, SELFPAY ==
[2023-05-06 08:19] VITALS: BP 120/60; BP 120/65; BMI 27.3
--- NOTE | ~2025-11-29 | US_ITS ---
CLINICAL HISTORY: R97.20 - Elevated prostate specific antigen [PSA] Exam: Ultrasound male pelvis Comparison: None Findings: Urinary bladder is mostly distended, no calculus, wall thickening or mass, prevoid bladder volume 511 mL, incomplete emptying with post void residual volume 81.6 mL, bilateral ureteral jets are visualized. The prostate is not entirely seen, posterior inferior aspect of the prostate is obscured by shadowing, and measures 3.4 cm in transverse dimension, roughly 4.8 cm in AP dimension, the CC dimension can not be reliably measured. Impression: Incomplete bladder emptying. This document has been electronically signed by: Chayo Jimenes MD on 11/30/2025 16:48:32
--- OUTSIDE RECORDS SUMMARY | 2025-11-29 08:21 | XMS_ITS | Patient Health Record ---
Author Organization Hansel Hussein III, MD Address [address] [place] [address] Care Team Providers Care Wrapper Cashier Name Role Phone Bandar Coronado MD Primary [...] Problem Status W/U Status Risk Notes Problem 486407622 Overweight (E66.3) Active confirmed His body mass index is 27 and I have recommended weight loss through exercise and diet restricted in fat calories in sodium. Problem 417037736 GERD (gastroesophageal reflux disease) (K21.9) Active confirmed His reflexes well controlled with nrtp-cuu-oukop er medication. Problem 94166252 Congenital spondylolisthesis (Q76.2) Active confirmed Problem 090211866 BPH (benign prostatic hyperplasia) (N40.0) Active confirmed He rises once or twice a night but is satisfied with this level of control and does not require more medication. Problem 96200985 Lumbosacral spondylosis without myelopathy (M47.817) Active confirmed His back pain is mild and has not been troubling him lately. No treatment is necessary. Problem 055427786 Malignant [place]la sm of right colon (C18.2) [...] End Date MEDICARE NGS [address] [facility] [address] [id number] Abel Walters Self - patient is the insured [facility] [address] [place], [place] [phone] [id number] Abel Walters Self - patient is [...]
--- OUTSIDE RECORDS SUMMARY | 2025-11-29 08:21 | XMS_ITS | Patient Health Record ---
Author Organization [facility] Christopher mcgee [place] Address [address] [place] [address] Care Team Providers Care Tar Distillation Supervisor Name Role Phone Hakeem Noble Primary Care Provider Unavailab rayna Alexandrea Pollard Unavailable [phone] Allergies Allergen (clinical drug ingredient) Drug/Non Drug [...] pressure diastolic 70 mm Hg 03/18/2025 Height [id number] in 03/18/2025 Blood pressure systolic 120 mm Hg 03/18/2025 Weight 195 lbs 03/18/2025 BMI 27.19 kg/m2 03/18/2025 Encounters Encounter Location Date Provider Diagnosis [facility] [place] [address] [place] [address] 03/18/2025 Alexandrea Black Pain in left foot [...] Inc [address] [place] [address] [phone] [id number] Abel Guzman Self - patient is the insured [employer] [facility] [address] [place] [address] [phone] [id number] Abel Guzman Self - patient is the insured Medical (General) History Medical History History ICD Code Cancer covid-19 Headaches/Migraines Reflux ( GERD) Chicken pox Surgical History Surgery Date(Month/Year) colon resection 12/14/2014 Heart stent Implant 05/31/222 carpal tunnel surgery left 04/13/2014 trigger finger release right 11/11/2012
== END 2025-11-29 08:20 | disposition home or self-care (01) ==
LOC: HO.HMGCX 08:19
PROVIDERS: PCP Physician Assistant; Visit Provider Urology
DX: R97.20 Elevated prostate specific antigen [PSA] (principal)
CPT/HCPCS: 76857

== ENCOUNTER → 2025-11-29 08:22 | Outpatient (BNV) | payer MEDICARE, SELFPAY ==
[2023-05-06 08:19] VITALS: BP 120/60; BP 120/65; BMI 27.3
== END ==
PROVIDERS: PCP Physician Assistant; Visit Provider Radiology Diagnostic Radiology
DX: R97.20 Elevated prostate specific antigen [PSA] (principal)
CPT/HCPCS: 76857